=== PATIENT | female | born 1940 | race Caucasian/White ===

== ENCOUNTER → 2016-08-01 | Outpatient (CLI) | payer MEDICARE ==
--- NOTE | 2016-08-01 09:27 | BD ---
EXAMINATION TYPE: MG DEXA axial skeleton. DATE OF EXAM: 08/01/2016 COMPARISON: Previous study dated 02/08/2014. CLINICAL HISTORY: Postmenopausal female Height: 5 FT 1 1/2 IN Weight: 162 FRAX RISK QUESTIONS: Alcohol (3 or more units per day): NO Family History (Parent hip fracture): NO Glucocorticoids (More than 3mos): NO (Ex: prednisone, prednisolone, methylprednisolone, dexamethasone, and hydrocortisone). History of Fracture in Adulthood: YES Secondary Osteoporosis: 1. Type 1 Diabetes: NO 2. Hyperthyroidism: NO 3. Menopause before 45: NO 4. Malnutrition: NO 5. Chronic liver disease: NO Rheumatoid Arthritis: NO Current Tobacco Use: NO RISK FACTORS HISTORY OF: Drink Alcohol: 3 X A YEAR Active: YES Postmenopausal woman: NOT SURE WHEN MENOPAUSE WAS Lost more than 2 inches in height since high school: YES MEDICATIONS: How Long: Additional Medications: VIT D,SIMVASTATIN, LISINOPRIL EXAM MEASUREMENTS: Bone mineral densitometry was performed using the [employer] System. Bone mineral density as measured about the Lumbar spine is: ----- L1-L4(G/cm2): 1.656 T Score Values are as follows: ----- L2: 3.0 ----- L3: 5.4 ----- L4: 5.5 ----- L1-L4: 4.0 Bone mineral density has: Increased 1.3% since study of: 2014 Bone mineral density about the R hip (g/cm2): 0.868 Bone mineral density about the L hip (g/cm2): 0.817 T Score values are as follows: -----R Neck: -0.7 -----L Neck: -0.7 -----R Total: 1.1 -----L Total: 1.4 Bone mineral density has: Decreased 4.0% since study of: 214 IMPRESSION: Normal (Values between +1 and -1 indicate normal bone mass). Consider repeating this study in 5 year s or sooner if there is some new clinical indication. NOTE: T-SCORE=SD OF THE YOUNG ADULT MEAN.
== END | disposition home or self-care (01) ==
LOC: RADBDWWP 07:13
PROVIDERS: ATTEND Internal Medicine Rheumatology
DX: Z13.820 Encounter for screening for osteoporosis (principal)
CPT/HCPCS: 77080

== ENCOUNTER → 2016-09-23 | Outpatient (CLI) | payer MEDICARE ==
--- NOTE | 2016-09-24 12:48 | MM ---
Reason for exam: screening (asymptomatic). Last mammogram was performed 1 year and 1 month ago. History: Patient is postmenopausal and has history of other cancer at age 72. Family history of breast cancer in sister and breast cancer in maternal aunt. Excisional biopsy of the right breast, August 09, 2007. Took estrogen for 11 years 2 months beginning at age 53. Physical Findings: A clinical breast exam by your physician is recommended on an annual basis and results should be correlated with mammographic findings. MG 3D Screening Mammo W/Cad Bilateral CC and MLO view(s) were taken. Prior study comparison: August 29, 2015, bilateral MG 3d screening mammo w/cad. September 06, 2014, right breast MG diagnostic mammo RT w CAD. Calcifications in both breasts, stable. No significant changes when compared with prior studies. ASSESSMENT: Benign, BI-RAD 2 RECOMMENDATION: Routine screening mammogram of both breasts in 1 year.
== END | disposition home or self-care (01) ==
LOC: RADMAMWWP 07:03
PROVIDERS: ATTEND Obstetrics & Gynecology
DX: Z12.31 Encounter for screening mammogram for malignant neoplasm of breast (principal)
CPT/HCPCS: 77063; G0202

== ENCOUNTER → 2017-12-18 | Outpatient (CLI) | payer MEDICARE ==
--- NOTE | 2017-12-22 09:14 | MM ---
Reason for exam: screening (asymptomatic). Last mammogram was performed 1 year and 3 months ago. History: Patient is postmenopausal and has history of other cancer at age 72. Family history of breast cancer in sister and breast cancer in maternal aunt. Excisional biopsy of the right breast, August 09, 2007. Took estrogen for 11 years 2 months beginning at age 53. Physical Findings: A clinical breast exam by your physician is recommended on an annual basis and results should be correlated with mammographic findings. MG 3D Screening Mammo W/Cad Bilateral CC and MLO view(s) were taken. Prior study comparison: September 23, 2016, bilateral MG 3d screening mammo w/cad. August 29, 2015, bilateral MG 3d screening mammo w/cad. The breast tissue is heterogeneously dense. This may lower the sensitivity of mammography. Focal asymmetry posterior upper outer quadrant left breast and 12 o'clock anterior left breast appear more defined/larger. ASSESSMENT: Incomplete: need additional imaging evaluation, BI-RAD 0 RECOMMENDATION: Special view mammogram and ultrasound of the left breast. [facility] will attempt to contact patient to return for supplemental views and ultrasound.
== END | disposition home or self-care (01) ==
LOC: RADMAMWWP 13:51
PROVIDERS: ATTEND Obstetrics & Gynecology
DX: Z12.31 Encounter for screening mammogram for malignant neoplasm of breast (principal)
CPT/HCPCS: 77063; 77067

== ENCOUNTER → 2017-12-30 | Outpatient (CLI) | payer MEDICARE ==
--- NOTE | 2017-12-31 09:25 | MM ---
Reason for exam: additional evaluation requested from abnormal screening. Last mammogram was performed less than 1 month ago. History: Patient is postmenopausal and has history of other cancer at age 72. Family history of breast cancer in sister at age 60 and breast cancer in maternal aunt at age 60. Excisional biopsy of the right breast, August 09, 2007. Took estrogen for 11 years 2 months beginning at age 53. Physical Findings: Nurse Summary: 0.5 x 1cm nodule in the left breast at 2 o'clock (nurse ts). MG 3D Work Up W/Cad LT Spot compression CC, spot compression MLO, and LM view(s) were taken of the left breast. Prior study comparison: December 18, 2017, bilateral MG 3d screening mammo w/cad. September 23, 2016, bilateral MG 3d screening mammo w/cad. The breast tissue is heterogeneously dense. This may lower the sensitivity of mammography. Areas of increased density persist but appear improved. Ultrasound recommended. These results were verbally communicated with the patient and result sheet given to the patient on 12/30/17. ASSESSMENT: Incomplete: need additional imaging evaluation, BI-RAD 0 RECOMMENDATION: Ultrasound of the left breast.
--- NOTE | 2017-12-31 09:26 | USB ---
Reason for exam: additional evaluation requested from abnormal screening. History: Patient is postmenopausal and has history of other cancer at age 72. Family history of breast cancer in sister at age 60 and breast cancer in maternal aunt at age 60. Excisional biopsy of the right breast, August 09, 2007. Took estrogen for 11 years 2 months beginning at age 53. US Breast Workup Limited LT Left limited breast ultrasound including focal area of concern, retroareolar and axilla demonstrates several oval, cystic lesions measuring 3 x 2 x 4mm at 1 o'clock, 8 x 4 x 7mm at 1 o'clock, 3 x 3 x 4mm at 2 o'clock and 6 x 5 x 7mm at 4 o'clock. These results were verbally communicated with the patient and result sheet given to the patient on 12/30/17. ASSESSMENT: Benign, BI-RAD 2 RECOMMENDATION: Return to routine screening mammogram schedule for both breasts.
== END | disposition home or self-care (01) ==
LOC: RADMAMWWP 14:38
PROVIDERS: ATTEND Obstetrics & Gynecology
DX: R92.8 Other abnormal and inconclusive findings on diagnostic imaging of breast (principal)
CPT/HCPCS: 77065; 76642; G0279; 77061

== ENCOUNTER → 2018-09-02 | Outpatient (CLI) | payer SELFPAY | LOC: LABWHC1 11:40 | PROVIDERS: ATTEND Pathology Anatomic Pathology & Clinical Pathology | DX: Z53.9 Procedure and treatment not carried out, unspecified reason (principal) | CPT/HCPCS: 36415 ==

== ENCOUNTER 2018-09-11 07:36 | Day surgery (SDC) | payer MEDICARE ==
[2018-09-10 11:12] VITALS: BMI 30.2
[~2018-09-11 07:36] MED LIST: LACTATED RINGERS 1,000 ML IV SCH; LIDOCAINE 1% 20 ML VIAL (10MG/ML) FOR IV START INTRADERMA PRN
[2018-09-11 07:51] VITALS: TEMP 97.8
[2018-09-11] MEDS ORDERED: LACTATED RINGERS 1,000 ML IV ONE (07:51)
[2018-09-11] MEDS ORDERED: LIDOCAINE 1% INJ 10MG/ML (20 ML MDV) ONE (08:55)
[2018-09-11] MEDS ORDERED: GLYCOPYRROLATE 0.2 MG/ML 2 ML VIAL ONE (08:55)
[2018-09-11] MEDS ORDERED: ONDANSETRON 4 MG/2 ML VIAL ONE (08:55)
[2018-09-11] MEDS ORDERED: PROPOFOL 10 MG/ML 20 ML VIAL IV ONE (08:55)
--- NOTE | 2018-09-11 09:12 | P.PCN ---
Date of Procedure: 09/11/18 Procedure(s) Performed: BRIEF HISTORY: Patient is a 77-year-old pleasant white female, scheduled for an elective colonoscopy as a part of screening for colorectal neoplasia. PROCEDURE PERFORMED: Colonoscopy. PREOPERATIVE DIAGNOSIS: Screening for colon cancer. IV sedation per Anesthesia. PROCEDURE: After informed consent was obtained, the patient, was brought into the endoscopy unit. IV sedation was administered by Anesthesia under continuous monitoring. Digital rectal examination was normal. Initially the Olympus CF-160 flexible video colonoscope was then inserted in the rectum, gradually advanced into the cecum without any difficulty. Careful examination was performed as the scope was gradually being withdrawn. Ileocecal valve and the appendiceal orifice were visualized and appeared normal. Prep was excellent. Mucosa of the cecum, ascending colon, transverse colon, descending colon, sigmoid colon, and rectum appeared normal. Scattered sigmoid diverticulosis seen. Retroflexion was performed in the rectum and no lesions were seen. The patient tolerated the procedure well. IMPRESSION: Normal-appearing colon from rectum to cecum with no evidence of colorectal neoplasia. Scattered sigmoid diverticulosis. RECOMMENDATIONS: Findings of this examination were discussed with the patient as well as a family. She was advised to be on a high-fiber diet..
[2018-09-11 09:30] VITALS: BP 136/67; PULSE 77; RESP 18
== END 2018-09-11 09:54 | disposition home or self-care (01) ==
LOC: ORWHC2ENDO 07:36
PROVIDERS: ATTEND Internal Medicine Gastroenterology
DX: Z12.11 Encounter for screening for malignant neoplasm of colon (principal); K57.30 Diverticulosis of large intestine without perforation or abscess without bleeding; M19.90 Unspecified osteoarthritis, unspecified site; I10 Essential (primary) hypertension; E78.5 Hyperlipidemia, unspecified; Z79.1 Long term (current) use of non-steroidal anti-inflammatories (NSAID); Z79.82 Long term (current) use of aspirin; Z79.899 Other long term (current) drug therapy
CPT/HCPCS: J2405; J2001; J2704; G0121

== ENCOUNTER → 2019-10-12 | Outpatient (CLI) | payer MEDICARE | END | disposition home or self-care (01) | LOC: LABWHC1 14:00 | PROVIDERS: ATTEND Family Medicine | DX: Z20.828 Contact with and (suspected) exposure to other viral communicable diseases (principal) | CPT/HCPCS: U0003; C9803 ==

== ENCOUNTER → 2020-02-13 | Outpatient (CLI) | payer MEDICARE ==
--- NOTE | 2020-02-14 13:42 | MM ---
Reason for exam: screening (asymptomatic). Last mammogram was performed 2 years and 1 month ago. History: Patient is postmenopausal and has history of other cancer at age 72. Family history of breast cancer in sister at age 60 and breast cancer in maternal aunt at age 60. Excisional biopsy of the right breast, August 09, 2007. Took estrogen for 11 years 2 months beginning at age 53. Physical Findings: A clinical breast exam by your physician is recommended on an annual basis and results should be correlated with mammographic findings. MG 3D Screening Mammo W/Cad Bilateral CC and MLO view(s) were taken. Prior study comparison: December 30, 2017, left breast MG 3d work up w/cad LT. December 18, 2017, bilateral MG 3d screening mammo w/cad. The breast tissue is heterogeneously dense. This may lower the sensitivity of mammography. No significant changes when compared with prior studies. ASSESSMENT: Benign, BI-RAD 2 RECOMMENDATION: Routine screening mammogram of both breasts in 1 year.
== END | disposition home or self-care (01) ==
LOC: RADMAMWWP 11:33
PROVIDERS: ATTEND Obstetrics & Gynecology
DX: Z12.31 Encounter for screening mammogram for malignant neoplasm of breast (principal)
CPT/HCPCS: 77063; 77067

== ENCOUNTER → 2020-12-13 | Outpatient (CLI) | payer MEDICARE ==
[2020-12-13 19:57] LABS: Basophils # (A) 0.07 X 10*3/uL (0.00-0.10); Basophils % (A) 1.1 %; Eosinophils # (A) 0.09 X 10*3/uL (0.04-0.35); Eosinophils % (A) 1.4 %; HCT 43.6 % (37.2-46.3); HGB 13.6 g/dL (12.0-15.0); Lymphocytes # (A) 1.75 X 10*3/uL (0.90-5.00); Lymphocytes % (A) 26.6 %; MCH 28.9 pg (27.0-32.0); MCHC 31.2 g/dL (32.0-37.0); MCV 92.8 fL (80.0-97.0); Mean Platelet Volume 12.9 fL (9.5-12.2); Monocytes # (A) 0.58 X 10*3/uL (0.20-1.00); Monocytes % (A) 8.8 %; Neutrophils # (A) 4.07 X 10*3/uL (1.80-7.70); Neutrophils % (A) 61.6 %; Platelet Count 108 X 10*3/uL (140-440); RDW 13.8 % (11.5-14.5); WBC 6.59 X 10*3/uL (4.50-10.00)
[2020-12-13 20:49] LABS: ALT 25 U/L (8-44); AST 26 U/L (13-35); Blood Urea Nitrogen 16.6 mg/dL (9.0-27.0); Non-African American GFR(CKD) 69.9 (60.0-200.0)
[2020-12-13 21:59] LABS: C Reactive Protein <0.30 mg/dL (0.00-0.80)
== END | disposition home or self-care (01) ==
LOC: LABWHC1 12:01
PROVIDERS: ATTEND Internal Medicine Rheumatology
DX: M05.79 Rheumatoid arthritis with rheumatoid factor of multiple sites without organ or systems involvement (principal); M06.4 Inflammatory polyarthropathy
CPT/HCPCS: 36415; 82565; 84450; 84460; 84520; 85025; 86140

== ENCOUNTER → 2021-01-03 | Outpatient (CLI) | payer MEDICARE ==
--- NOTE | 2021-01-04 15:23 | BD ---
EXAMINATION TYPE: Axial Bone Density DATE OF EXAM: 01/03/2021 COMPARISON: NONE CLINICAL HISTORY: age related osteoporosis. Height: 5 FT 1 1/4 IN Weight: 160 FRAX RISK QUESTIONS: Alcohol (3 or more units per day): NO Family History (Parent hip fracture): NO Glucocorticoids (More than 3mos): NO (Ex: prednisone, prednisolone, methylprednisolone, dexamethasone, and hydrocortisone). History of Fracture in Adulthood: YES Secondary Osteoporosis: 1. Type 1 Diabetes: NO 2. Hyperthyroidism: NO 3. Menopause before 45: NO 4. Malnutrition: NO 5. Chronic liver disease: NO Rheumatoid Arthritis: NO Current Tobacco Use: NO RISK FACTORS HISTORY OF: Surgery to Spine/Hip(right/left)/Wrist (right/left): NO Family History of Osteoporosis: NO Active: YES Diet low in dairy products/other sources of calcium: NO Postmenopausal woman: YES Take estrogen and/or progesterone medications: TOOK HRT FOR SEV YEARS AFTER MENOPAUSE NO LONGER TAKES Lost more than 2 inches in height since high school: YES Frequent falls: NO Poor Health: GOOD Hyperparathyroidism: NO Adrenal Insufficiency: NO MEDICATIONS: Additional Medications: SIMVASTATIN, LISINOPRIL Additional History: EXAM MEASUREMENTS: Bone mineral densitometry was performed using the [employer]. Bone mineral density as measured about the Lumbar spine is: ----- L1-L4(G/cm2): 1.507 T Score Values are as follows: ----- L2: 1.6 ----- L3: 2.7 ----- L4: 4.6 ----- L1-L4: 2.7 Bone mineral density has: DECREASED -10.8 % since study of: 2016 Bone mineral density about the R hip (g/cm2): 1.154 Bone mineral density about the L hip (g/cm2): 1.078 T Score values are as follows: -----R Neck: 0.8 -----L Neck: 0.3 -----R Total: 0.7 -----L Total: 0.9 Bone mineral density has: DECREASED -4.9 % since study of: 2017 IMPRESSION: Normal bone mineral density. NOTE: T-SCORE=SD OF THE YOUNG ADULT MEAN.
== END | disposition home or self-care (01) ==
LOC: RADBDWWP 15:34
PROVIDERS: ATTEND Internal Medicine Rheumatology
DX: Z78.0 Asymptomatic menopausal state (principal)
CPT/HCPCS: 77080

== ENCOUNTER → 2021-05-01 | Outpatient (CLI) | payer MEDICARE ==
--- NOTE | 2021-05-02 10:39 | MM ---
Reason for exam: screening (asymptomatic). Last mammogram was performed 1 year and 3 months ago. History: Patient is postmenopausal and has history of other cancer at age 72. Family history of breast cancer in sister at age 60 and breast cancer in maternal aunt at age 60. Excisional biopsy of the right breast, August 09, 2007. Took estrogen for 11 years 2 months beginning at age 53. Physical Findings: A clinical breast exam by your physician is recommended on an annual basis and results should be correlated with mammographic findings. MG 3D Screening Mammo W/Cad Bilateral CC and MLO view(s) were taken. Prior study comparison: February 13, 2020, bilateral MG 3d screening mammo w/cad. December 30, 2017, left breast MG 3d work up w/cad LT. The breast tissue is heterogeneously dense. This may lower the sensitivity of mammography. Finding: There is a 7 mm equal density (isodense), obscured mass in the lower quadrant, central position of the right breast. ASSESSMENT: Incomplete: need additional imaging evaluation, BI-RAD 0 RECOMMENDATION: Special view mammogram of the right breast. If lesion persists on supplemental views, image directed ultrasound is recommended. [facility] will attempt to contact patient to return for supplemental views and ultrasound if indicated.
== END | disposition home or self-care (01) ==
LOC: RADMAMWWP 14:44
PROVIDERS: ATTEND Obstetrics & Gynecology
DX: Z12.31 Encounter for screening mammogram for malignant neoplasm of breast (principal); Z80.3 Family history of malignant neoplasm of breast; Z78.0 Asymptomatic menopausal state
CPT/HCPCS: 77063; 77067

== ENCOUNTER → 2021-05-03 | Outpatient (CLI) | payer MEDICARE ==
--- NOTE | 2021-05-03 11:35 | MM ---
Reason for exam: additional evaluation requested from abnormal screening. Last mammogram was performed less than 1 month ago. History: Patient is postmenopausal and has history of other cancer at age 72. Family history of breast cancer in sister at age 60 and breast cancer in maternal aunt at age 60. Excisional biopsy of the right breast, August 09, 2007. Took estrogen for 11 years 2 months beginning at age 53. Physical Findings: A clinical breast exam by your physician is recommended on an annual basis and results should be correlated with mammographic findings. MG 3D Work Up W/Cad RT Spot compression CC, spot compression MLO, and LM view(s) were taken of the right breast. Prior study comparison: May 01, 2021, bilateral MG 3d screening mammo w/cad. February 13, 2020, bilateral MG 3d screening mammo w/cad. The breast tissue is heterogeneously dense. This may lower the sensitivity of mammography. Nodule persists 6 o'clock right breast 4cm and 6cm from nipple measuring up to 1cm in size. These results were verbally communicated with the patient and result sheet given to the patient on 05/03/21. ASSESSMENT: Incomplete: need additional imaging evaluation, BI-RAD 0 RECOMMENDATION: Ultrasound of the right breast.
--- NOTE | 2021-05-03 11:38 | USB ---
Reason for exam: additional evaluation requested from abnormal screening. History: Patient is postmenopausal and has history of other cancer at age 72. Family history of breast cancer in sister at age 60 and breast cancer in maternal aunt at age 60. Excisional biopsy of the right breast, August 09, 2007. Took estrogen for 11 years 2 months beginning at age 53. US Breast Workup Limited RT Technologist: Gabby Sultana Right limited breast ultrasound including focal area of concern, retroareolar and axilla demonstrates a 0.6 x 0.3 x 0.4cm lesion at 5 o'clock, a 0.7 x 0.5 x 0.5cm mixed lesion at 6 o'clock, a 0.7 x 0.7 x 0.6cm mixed lesion at 7 o'clock for which a biopsy is recommended and a 0.9 x 0.9 x 0.8cm cystic cluster/septated lesion at the nipple. Scanned 4-8 o'clock. These results were verbally communicated with the patient and result sheet given to the patient on 05/03/21. ASSESSMENT: Suspicious, BI-RAD 4 RECOMMENDATION: Ultrasound core biopsy of the right breast. (7 o'clock) Called Dr. Santos's office with mammographic findings and has scheduled an appointment for the patient for 06/27/21 at 11:[address] Ryan. Biopsy scheduled for 05/09/21 at 1:00. PRELIMINARY REPORT CALLED AND FAXED TO DR. RYAN ON 05/03/21.
== END | disposition home or self-care (01) ==
LOC: RADMAMWWP 09:37
PROVIDERS: ATTEND Obstetrics & Gynecology
DX: R92.8 Other abnormal and inconclusive findings on diagnostic imaging of breast (principal); Z78.0 Asymptomatic menopausal state; Z80.3 Family history of malignant neoplasm of breast
CPT/HCPCS: 77065; 76642; G0279; 77061

== ENCOUNTER → 2022-03-24 | Outpatient (CLI) | payer MEDICARE ==
[2022-03-24 15:36] LABS: C Reactive Protein <0.30 mg/dL (0.00-0.80); Rheumatoid Factor, Qnt 20 IU/mL (0-15)
[2022-03-24 16:06] LABS: Basophils # (A) 0.06 X 10*3/uL (0.00-0.10); Basophils % (A) 1.1 %; Eosinophils # (A) 0.13 X 10*3/uL (0.04-0.35); Eosinophils % (A) 2.3 %; HCT 45.5 % (37.2-46.3); HGB 14.6 g/dL (12.0-15.0); Immature Grans, Automated 0.5 %; Lymphocytes # (A) 1.45 X 10*3/uL (0.90-5.00); Lymphocytes % (A) 25.5 %; MCH 29.1 pg (27.0-32.0); MCHC 32.1 g/dL (32.0-37.0); MCV 90.6 fL (80.0-97.0); Monocytes # (A) 0.56 X 10*3/uL (0.20-1.00); Monocytes % (A) 9.9 %; NRBC Per 100 WBC 0 /100 WBCS (0.0-0.0); Neutrophils # (A) 3.45 X 10*3/uL (1.80-7.70); Neutrophils % (A) 60.7 %; Platelet Count 96 X 10*3/uL (140-440); RBC 5.02 X 10*6/uL (4.10-5.20); RBC Morphology NORMAL; RDW 13.6 % (11.5-14.5); WBC 5.68 X 10*3/uL (4.50-10.00)
[2022-03-24 16:12] LABS: Erythrocyte Sedimentation Rate 20 mm/Hr (0-30)
[2022-03-24 16:44] LABS: ALT 36 U/L (8-44); AST 29 U/L (13-35); Blood Urea Nitrogen 16.7 mg/dL (9.0-27.0); Calcium 9.5 mg/dL (8.7-10.3); Non-African American GFR(CKD) 66.4 (60.0-200.0)
== END | disposition home or self-care (01) ==
LOC: LABWHC1 10:40
PROVIDERS: ATTEND Internal Medicine Rheumatology
DX: M81.0 Age-related osteoporosis without current pathological fracture (principal); E55.9 Vitamin D deficiency, unspecified; M06.4 Inflammatory polyarthropathy; Z79.01 Long term (current) use of anticoagulants
CPT/HCPCS: 36415; 82310; 82565; 83036; 84450; 84460; 84520; 85025; 85652; 86140; 86431

== ENCOUNTER → 2022-10-02 | Outpatient (CLI) | payer MEDICARE ==
[2022-10-02 17:08] LABS: ALT 32 U/L (8-44); AST 29 U/L (13-35); Blood Urea Nitrogen 15.8 mg/dL (9.0-27.0); C Reactive Protein <0.30 mg/dL (0.00-0.80)
[2022-10-02 17:27] LABS: Basophils # (A) 0.07 X 10*3/uL (0.00-0.10); Basophils % (A) 1.1 %; Eosinophils # (A) 0.16 X 10*3/uL (0.04-0.35); Eosinophils % (A) 2.5 %; HCT 45.7 % (37.2-46.3); HGB 14.9 d/dL (12.0-15.0); Lymphocytes % (A) 24.6 %; MCH 29.8 pg (27.0-32.0); MCHC 32.6 d/dL (32.0-37.0); MCV 91.4 FL (80.0-97.0); Mean Platelet Volume 13.4 FL (9.5-12.2); Monocytes % (A) 9.2 %; NRBC Per 100 WBC 0 X 10*3/uL (0.00-0.01); Neutrophils # (A) 4.06 X 10*3/uL (1.80-7.70); Neutrophils % (A) 62.3 %; Platelet Count 125 X 10*3/uL (140-440); RBC Morphology Normal (Normal); RDW 13.8 % (11.5-14.5); WBC 6.51 X 10*3/uL (4.50-10.00)
[2022-10-02 17:31] LABS: Erythrocyte Sedimentation Rate 25 mm/Hr (0-30)
== END | disposition home or self-care (01) ==
LOC: LABWHC1 08:18
PROVIDERS: ATTEND Internal Medicine Rheumatology
DX: M06.4 Inflammatory polyarthropathy (principal); M25.50 Pain in unspecified joint; Z79.01 Long term (current) use of anticoagulants
CPT/HCPCS: 36415; 82565; 84450; 84460; 84520; 85025; 85652; 86140

== ENCOUNTER → 2023-05-14 | Outpatient (CLI) | payer MEDICARE ==
--- NOTE | 2023-05-15 13:45 | MM ---
Reason for Exam: Screening (asymptomatic). Last screening mammogram was performed 12 month(s) ago. Patient History: Menarche at age 15. First Full-Term at age 30. Left ovary removed at age 76. Right ovary removed at age 76. Hysterectomy at age 76. Postmenopausal. Patient has history of breast feeding. Estrogen for 11 years, 2 months, from age 53 until age 64. 07/08/2021, High risk MG pre op needle loc RT on the right side. 08/09/2007, Excisional Biopsy on the Right side. 05/09/2021, High risk Core Biopsy on the right side. Maternal aunt had breast cancer, age 60. Sister had breast cancer, age 60. Mother had breast cancer at or over age 50. Risk Values: Munira 5 year model risk: 7.6%. NCI Lifetime model risk: 10.7%. Prior Study Comparison: 09/23/2016 Bilateral Screening Mammogram, [facility]. 12/18/2017 Bilateral Screening Mammogram, [facility]. 12/30/2017 Left Diagnostic Mammogram, [facility]. 02/13/2020 Bilateral Screening Mammogram, [facility]. 05/01/2021 Bilateral Screening Mammogram, [facility]. 05/03/2021 Right Diagnostic Mammogram, [facility]. 05/09/2021 Right Diagnostic Mammogram, [facility]. 04/30/2022 Bilateral MG 3D diag mammo w/cad [facility], [facility]. Tissue Density: The breasts are heterogeneously dense, which may obscure small masses. Findings: Analyzed By CAD. Right breast: There is no suspicious group of microcalcifications or new suspicious mass. Left breast: There is no suspicious group of microcalcifications or new suspicious mass. There is no suspicious group of microcalcifications or new suspicious mass. Overall Assessment: Negative, BI-RAD 1 Management: Screening Mammogram of both breasts in [address] [facility] will attempt to contact patient to return for supplemental views and ultrasound if indicated. Patient should continue monthly self-breast exams. A clinical breast exam by your physician is recommended on an annual basis. This exam should not preclude additional follow-up of suspicious palpable abnormalities. Note on Munira scores and lifetime risk: 1. A Munira score greater than 3% is considered moderate risk. If this is the case, consider specialist referral to assess eligibility for a risk reducing agent. 2. If overall lifetime risk for the development of breast cancer is 20% or higher, the patient may qualify for future screening with alternating mammogram and breast MRI. Electronically signed and approved by: Chucho Sharma DO
== END | disposition home or self-care (01) ==
LOC: RADMAMWWP 07:28
PROVIDERS: ATTEND Obstetrics & Gynecology
DX: Z12.31 Encounter for screening mammogram for malignant neoplasm of breast (principal); Z80.3 Family history of malignant neoplasm of breast; Z78.0 Asymptomatic menopausal state
CPT/HCPCS: 77063; 77067

== ENCOUNTER → 2023-09-08 | Outpatient (CLI) | payer MEDICARE ==
--- NOTE | 2023-09-08 22:02 | XR ---
EXAMINATION TYPE: XR Hip Complete RT DATE OF EXAM: 09/08/2023 COMPARISON: None HISTORY: Primary osteoarthritis TECHNIQUE: Two-view right hip FINDINGS: Femoral head articulates with the acetabulum. Joint space appears preserved. No acute fract ure or dislocation evident. IMPRESSION: 1. No acute osseous abnormality right hip
== END | disposition home or self-care (01) ==
LOC: RADXRMAIN 09:11
PROVIDERS: ATTEND Family Medicine
DX: M19.91 Primary osteoarthritis, unspecified site (principal)
CPT/HCPCS: 73502

== ENCOUNTER 2023-11-28 20:21 | Inpatient (IN) | payer MEDICARE ==
--- NOTE | 2023-11-28 20:45 | ED ---
Fall HPI - General Source: patient, EMS, RN notes reviewed Mode of arrival: EMS Limitations: no limitations <Katheryn Park - Last Filed: 11/28/23 23:05> <Katy Strong - Last Filed: 11/30/23 02:51> - General Chief Complaint: Fall Stated Complaint: N/V Time Seen by Provider: 11/28/23 20:43 - History of Present Illness Initial Comments: 82-year-old female presented to ER via EMS with a chief complaint of a fall. Patient states since she has been feeling weak. She is while attempting to get out of bed today she accidentally slipped off the edge of the bed causing her to fall. She denies any head injury or loss of consciousness. She denies any dizziness, lightheadedness, shortness of breath or chest pain prior to fall. No blood thinning medications. She denies any current pain. Patient is reported to have a fever upon arrival. Patient denies any recent headache, cough, congestion, chest pain, shortness of breath, abdominal pain, constipation/diarrhea, urinary complaints or peripheral edema. (Katheryn Park) - Related Data Home Medications Medication Instructions Recorded Confirmed Simvastatin [Zocor] 20 mg PO HS 11/29/23 11/29/23 lisinopriL [Zestril] 10 mg PO DAILY 11/29/23 11/29/23 Allergies Allergy/AdvReac Type Severity Reaction Status Date / Time No Known Allergies Allergy Verified 11/29/23 09:37 Review of Systems ROS Other: All systems not noted in ROS Statement are negative. <Katheryn Park - Last Filed: 11/28/23 23:05> ROS Other: All systems not noted in ROS Statement are negative. <Katy Strong - Last Filed: 11/30/23 02:51> ROS Statement: Those systems with pertinent positive or pertinent negative responses have been documented in the HPI. Past Medical History Past Medical History: Hyperlipidemia, Hypertension, Osteoarthritis (OA) History of Any Multi-Drug Resistant Organisms: None Reported Past Surgical History: Breast Surgery Additional Past Surgical History / Comment(s): GROWTH REMOVED- skin lesions. Benign right breast excisional biopsy Past Anesthesia/Blood Transfusion Reactions: No Reported Reaction Past Psychological History: No Psychological Hx Reported Smoking Status: Never smoker Past Alcohol Use History: Rare Past Drug Use History: None Reported <Katheryn Park - Last Filed: 11/28/23 23:05> General Exam Limitations: no limitations General appearance: alert, in no apparent distress ENT exam: Present: normal exam, normal oropharynx, mucous membranes dry, TM's normal bilaterally Neck exam: Present: normal inspection. Absent: tenderness, meningismus, lymphadenopathy Respiratory exam: Present: normal lung sounds bilaterally. Absent: respiratory distress, wheezes, rales, rhonchi, stridor Cardiovascular Exam: Present: normal rhythm, tachycardia, normal heart sounds GI/Abdominal exam: Present: soft, normal bowel sounds. Absent: distended, tenderness, guarding, rebound, rigid Extremities exam: Present: normal inspection, full ROM, normal capillary refill. Absent: tenderness, pedal edema, joint swelling, calf tenderness Neurological exam: Present: alert, oriented X3, CN II-XII intact Skin exam: Present: warm, dry, intact, normal color. Absent: rash <Katheryn Park - Last Filed: 11/28/23 23:05> Course <Katheryn Park - Last Filed: 11/28/23 23:05> <Katy Strong - Last Filed: 11/30/23 02:51> Vital Signs 11/28/23 11/28/23 11/28/23 20:24 21:19 21:50 Temperature 102.8 F H 100.6 F H 101.1 F H Pulse Rate 107 H 99 Respiratory 20 20 Rate Blood Pressure 164/76 132/61 O2 Sat by Pulse 93 L 93 L Oximetry 11/28/23 11/28/23 11/28/23 22:47 23:16 23:41 Temperature 99.2 F 98.4 F 98.8 F Pulse Rate 135 H 135 H Respiratory 20 20 Rate Blood Pressure 91/65 94/46 O2 Sat by Pulse 94 L 94 L Oximetry 11/29/23 11/29/23 11/29/23 00:49 01:25 01:48 Temperature 98.4 F 97.7 F Pulse Rate 109 H 129 H 112 H Respiratory 20 20 16 Rate Blood Pressure 106/63 100/62 117/76 O2 Sat by Pulse 96 96 96 Oximetry 11/29/23 11/29/23 11/29/23 02:19 03:20 04:45 Temperature 97.4 F L Pulse Rate 98 84 71 Respiratory 20 18 19 Rate Blood Pressure 100/61 138/82 110/66 O2 Sat by Pulse 92 L 98 97 Oximetry 11/29/23 11/29/23 11/29/23 06:03 09:16 10:16 Temperature 98.1 F 97.7 F Pulse Rate 70 80 78 Respiratory 19 18 16 Rate Blood Pressure 110/67 119/67 127/64 O2 Sat by Pulse 97 95 96 Oximetry 11/29/23 11:12 Temperature 98.0 F Pulse Rate 75 Respiratory 16 Rate Blood Pressure 131/71 O2 Sat by Pulse 95 Oximetry - Reevaluation(s) Reevaluation #1: 11/28/23 20:45 SIRS critera met. 11/28/23 22:07 Patient reevaluated. Heart rate ranging from 120s to 140s. Patient is reporting a racing heart. Denies any current pain. Blood pressure 99/53. O2 saturation 93% on 3L NC oxygen. 11/28/23 22:42 Rocephin ordered. 11/28/23 22:[address] Driver, [facility], for admission. (Katheryn Park) Reevaluation #2: Spoke with the patient. I did review her CT. Patient does have a ureteral stone. Due to fever, hypotension, UTI with partially obstructing stone I did call and speak with Dr. Jaime. Will be made NPO. Blood pressures will be watched closely. Patient awaiting a bed on the floor. Patient is in A-fib however rate is mostly between 95 and 115. Patient has sepsis and therefore I do not want to decrease her cardiac output. Patient is also scheduled for stent placement tomorrow and therefore I will hold off heparinizing the patient 11/29/23 01:03 (Katy Strong) Medical Decision Making - Lab Data Result diagrams: 11/28/23 21:14 11/28/23 20:43 - EKG Data -: EKG Interpreted by Me - Radiology Data Radiology results: report reviewed, image reviewed <Katheryn Park - Last Filed: 11/28/23 23:05> - Lab Data Result diagrams: 11/28/23 21:14 11/28/23 20:43 <Katy Strong - Last Filed: 11/30/23 02:51> - Medical Decision Making Was pt. sent in by a medical professional or institution (, [facility], [employer], urgent care, hospital, or shelter...) When possible be specific @ -No Did you speak to anyone other than the patient for history (EMS, parent, family, police, friend...)? What history was obtained from this source @ -, at bedside, aiding in HPI and PMHx. Did you review nursing and triage notes (agree or disagree)? Why? @ -I reviewed and agree with nursing and triage notes Were old charts reviewed (outside hosp., previous admission, EMS record, old EKG, old radiological studies, urgent care reports/EKG's, shelter records)? Report findings @ -No old charts were reviewed Differential Diagnosis (chest pain, altered mental status, abdominal pain women, abdominal pain men, vaginal bleeding, weakness, fever, dyspnea, syncope, headache, dizziness, GI bleed, back pain, seizure, CVA, palpatations, mental health, musculoskeletal)? @ -Differential Fever: Pneumonia, viral URI, endocarditis, myocarditis, pericarditis, otitis, sinusitis, peritonsillar Abscess, retropharyngeal Abscess, epiglottitis, peritonitis, appendicitis, Christel cystitis, diverticulitis, hepatitis, colitis, UTI, PID, TOA, pyelonephritis, prostatitis, epididymitis, meningitis, encephalitis, pulmonary embolism, CVA, thyroid storm, pancreatitis, adrenal crisis, cavernous sinus thrombosis, this is not meant to be an all- inclusive list. EKG interpreted by me (3pts min.). @ -As above X-rays interpreted by me (1pt min.). @ -Chest x-ray negative for acute process. CT interpreted by me (1pt min.). @ -Pending U/S interpreted by me (1pt. min.). @ -Gallbladder ultrasound unremarkable. What testing was considered but not performed or refused? (CT, X-rays, U/S, labs)? Why? @ -None What meds were considered but not given or refused? Why? @ -None Did you discuss the management of the patient with other professionals (professionals i.e. [facility]STINE Hull, [employer], lab, RT, psych nurse, social media senior associate, human services care specialist, teacher, hospital security officer, lead case manager)? Give summary @ -Yes, [facility]. Was smoking cessation discussed for >3mins.? @ -No Was critical care preformed (if so, how long)? @ -No Were there social determinants of health that impacted care today? How? (Homelessness, low income, unemployed, alcoholism, drug addiction, transportation, low edu. Level, literacy, decrease access to med. care, fdc, rehab)? @ -No Was there de-escalation of care discussed even if they declined (Discuss DNR or withdrawal of care, Hospice)? DNR status @ -No What co-morbidities impacted this encounter? (DM, HTN, Smoking, COPD, CAD, Cancer, CVA, ARF, Chemo, Hep., AIDS, mental health diagnosis, sleep apnea, morbid obesity)? @ -HTN, HLD Was patient admitted / discharged? Hospital course, mention meds given and route, prescriptions, significant lab abnormalities, going to OR and other pertinent info. @ -Admitted. 82-year-old female presented to the ER with a chief complaint of weakness and fall. Patient is febrile upon arrival with a temperature of 102.8, heart rate 107, respirate 20, blood pressure 164/76, oxygen saturation 93% on room air. Patient is mildly diaphoretic on exam no signs of acute distress. Patient denying any current pain or complaints. Laboratory studies obtained remarkable for a WBC 7.5, lactic 2.0. Prerenal azotemia (BUN 24, creatinine 0.89 with a GFR 61). Transaminitis with a total bilirubin 1.9, AST 59, ALT 47, alk phos 54. Viral swabs negative. Chest x-ray negative for acute process. Gallbladder ultrasound negative. CT abdomen pelvis pending. UA pending. Patient met sepsis criteria at 2044. IV Rocephin ordered at 2241. Blood cultures obtained. Patient intermittently went into atrial fibrillation with RVR which is likely related to compensation due to sepsis. Patient received 2L IV fluids in the ER started on maintenance fluids at 130cc/hour. P.O. Tylenol and IV Toradol for fever control, with improvement. [facility] treatment of sepsis. Patient agreeable. UA and CT pending at time of admission. Patient admitted in stable condition. Case discussed with ED attending, Dr. Strong. Undiagnosed new problem with uncertain prognosis? @ -Yes Drug Therapy requiring intensive monitoring for toxicity (Heparin, Nitro, Ins ulin, Cardizem)? @ -No Were any procedures done? @ -No Diagnosis/symptom? @ -Sepsis Acute, or Chronic, or Acute on Chronic? @ -Acute Uncomplicated (without systemic symptoms) or Complicated (systemic symptoms)? @ -Complicated Side effects of treatment? @ -No Exacerbation, Progression, or Severe Exacerbation? @ -No Poses a threat to life or bodily function? How? (Chest pain, USA, ID, pneumonia, PE, COPD, DKA, ARF, appy, cholecystitis, CVA, Diverticulitis, Homicidal, Suicidal, threat to staff... and all critical care pts) @ -Yes, sepsis can lead to end organ dysfunction which can be life threatening. (Katheryn Park) Critical care time of 35 minutes for management of rapid A-fib, septic stone with consultation to urology and cardiology (Katy Strong) - Lab Data Lab Results 11/28/23 11/28/23 11/28/23 Range/Units 20:43 20:43 21:14 WBC 7.5 (3.8-10.6) k/uL RBC 4.68 (3.80-5.40) m/uL Hgb 13.9 (11.4-16.0) gm/dL Hct 42.2 (34.0-46.0) % MCV 90.3 (80.0-100.0) fL MCH 29.6 (25.0-35.0) pg MCHC 32.8 (31.0-37.0) g/dL RDW 13.8 (11.5-15.5) % Plt Count 75 L (150-450) k/uL MPV 8.2 Neutrophils % 91 % Lymphocytes % 3 % Monocytes % 4 % Eosinophils % 0 % Basophils % 0 % Neutrophils # 6.8 (1.3-7.7) k/uL Lymphocytes # 0.2 L (1.0-4.8) k/uL Monocytes # 0.3 (0-1.0) k/uL Eosinophils # 0.0 (0-0.7) k/uL Basophils # 0.0 (0-0.2) k/uL Sodium 138 (137-145) mmol/L Potassium 4.0 (3.5-5.1) mmol/L Chloride 108 H (98-107) mmol/L Carbon Dioxide 19 L (22-30) mmol/L Anion Gap 11 mmol/L BUN 24 H (7-17) mg/dL Creatinine 0.89 (0.52-1.04) mg/dL Est GFR (CKD-EPI)AfAm 70 (>60 ml/min/1.73 sqM) Est GFR (CKD-EPI)NonAf 61 (>60 ml/min/1.73 sqM) Glucose 159 H (74-99) mg/dL Plasma Lactic Acid Vito 2.0 (0.7-2.0) mmol/L Calcium 8.8 (8.4-10.2) mg/dL Total Bilirubin 1.9 H (0.2-1.3) mg/dL AST 59 H (14-36) U/L ALT 47 H (4-34) U/L Alkaline Phosphatase 54 (38-126) U/L Total Protein 6.2 L (6.3-8.2) g/dL Albumin 3.6 (3.5-5.0) g/dL Urine Color Urine Appearance (Clear) Urine pH (5.0-8.0) Ur Specific Mercer (1.001-1.035) Urine Protein (Negative) Urine Glucose (UA) (Negative) Urine Ketones (Negative) Urine Blood (Negative) Urine Nitrite (Negative) Urine Bilirubin (Negative) Urine Urobilinogen (<2.0) mg/dL Ur Leukocyte Esterase (Negative) Urine RBC (0-5) /hpf Urine WBC (0-5) /hpf Ur Squamous Epith Cells (0-4) /hpf Urine Bacteria (None) /hpf Influenza Type A (PCR) (Not Detectd) Influenza Type B (PCR) (Not Detectd) RSV (PCR) (Not Detectd) SARS-CoV-2 (PCR) (Not Detectd) 11/28/23 11/28/23 Range/Units 21:23 23:00 WBC (3.8-10.6) k/uL RBC (3.80-5.40) m/uL Hgb (11.4-16.0) gm/dL Hct (34.0-46.0) % MCV (80.0-100.0) fL MCH (25.0-35.0) pg MCHC (31.0-37.0) g/dL RDW (11.5-15.5) % Plt Count (150-450) k/uL MPV Neutrophils % % Lymphocytes % % Monocytes % % Eosinophils % % Basophils % % Neutrophils # (1.3-7.7) k/uL Lymphocytes # (1.0-4.8) k/uL Monocytes # (0-1.0) k/uL Eosinophils # (0-0.7) k/uL Basophils # (0-0.2) k/uL Sodium (137-145) mmol/L Potassium (3.5-5.1) mmol/L Chloride (98-107) mmol/L Carbon Dioxide (22-30) mmol/L Anion Gap mmol/L BUN (7-17) mg/dL Creatinine (0.52-1.04) mg/dL Est GFR (CKD-EPI)AfAm (>60 ml/min/1.73 sqM) Est GFR (CKD-EPI)NonAf (>60 ml/min/1.73 sqM) Glucose (74-99) mg/dL Plasma Lactic Acid Vito (0.7-2.0) mmol/L Calcium (8.4-10.2) mg/dL Total Bilirubin (0.2-1.3) mg/dL AST (14-36) U/L ALT (4-34) U/L Alkaline Phosphatase (38-126) U/L Total Protein (6.3-8.2) g/dL Albumin (3.5-5.0) g/dL Urine Color Yellow Urine Appearance Cloudy H (Clear) Urine pH 6.0 (5.0-8.0) Ur Specific Mercer 1.023 (1.001-1.035) Urine Protein 1+ H (Negative) Urine Glucose (UA) Negative (Negative) Urine Ketones 1+ H (Negative) Urine Blood Large H (Negative) Urine Nitrite Negative (Negative) Urine Bilirubin Negative (Negative) Urine Urobilinogen <2.0 (<2.0) mg/dL Ur Leukocyte Esterase Large H (Negative) Urine RBC 10 H (0-5) /hpf Urine WBC 92 H (0-5) /hpf Ur Squamous Epith Cells <1 (0-4) /hpf Urine Bacteria Many H (None) /hpf Influenza Type A (PCR) Not Detected (Not Detectd) Influenza Type B (PCR) Not Detected (Not Detectd) RSV (PCR) Not Detected (Not Detectd) SARS-CoV-2 (PCR) Not Detected (Not Detectd) - EKG Data EKG Comments: EKG taken at 20: 32 showing a sinus tachycardia. No acute ST segment elevations or depressions. No T wave abnormalities. Ventricular rate 105, VT interval 159, QRS duration 90, QT/QTc 322/383. EKG taken at 2233 showing atrial fibrillation with rapid ventricular response. Ventricular rate 131, QRS duration 101, QT/QTc 283/360. (Katheryn Park) Disposition Time of Disposition: 23:09 <Katheryn Park - Last Filed: 11/28/23 23:05> Is patient prescribed a controlled substance at d/c from ED?: No <Katy Strong - Last Filed: 11/30/23 02:51> Clinical Impression: Sepsis, UTI (urinary tract infection), Ureteral stone, Fever Disposition: ADMITTED IP TO THIS HOSP Condition: Stable
[2023-11-28 20:51] LABS: Basophils % (A) 0 %; Eosinophils % (A) 0 %; HCT 42.2 % (34.0-46.0); HGB 13.9 gm/dL (11.4-16.0); Lymphocytes # (A) 0.2 k/uL (1.0-4.8); Lymphocytes % (A) 3 %; MCH 29.6 pg (25.0-35.0); MCHC 32.8 g/dL (31.0-37.0); MCV 90.3 fL (80.0-100.0); Mean Platelet Volume 8.2; Monocytes # (A) 0.3 k/uL (0-1.0); Monocytes % (A) 4 %; Neutrophils # (A) 6.8 k/uL (1.3-7.7); Neutrophils % (A) 91 %; RBC 4.68 m/uL (3.80-5.40); RDW 13.8 % (11.5-15.5); WBC 7.5 k/uL (3.8-10.6)
[2023-11-28] MEDS: ACETAMINOPHEN TAB 500 MG TAB PO STA (20:51)
[2023-11-28] MEDS: IBUPROFEN 600 MG TAB PO STA (20:51)
[2023-11-28] MEDS: SODIUM CHLORIDE 0.9% 1,000 ML IV STA (20:52)
[2023-11-28 21:01] LABS: ALT 47 U/L (4-34); AST 59 U/L (14-36); African American GFR (CKD) 70 (>60 ml/min/1.73 sqM); Albumin 3.6 g/dL (3.5-5.0); Alkaline Phosphatase 54 U/L (38-126); Anion Gap 11 mmol/L; Blood Urea Nitrogen 24 mg/dL (7-17); Calcium 8.8 mg/dL (8.4-10.2); Carbon Dioxide 19 mmol/L (22-30); Chloride 108 mmol/L (98-107); Glucose 159 mg/dL (74-99); Non-African American GFR(CKD) 61 (>60 ml/min/1.73 sqM); Sodium 138 mmol/L (137-145); Total Bilirubin 1.9 mg/dL (0.2-1.3); Total Protein 6.2 g/dL (6.3-8.2)
--- NOTE | 2023-11-28 21:21 | XR ---
EXAMINATION TYPE: XR chest 2V DATE OF EXAM: 11/28/2023 COMPARISON: None INDICATION: Fever, fall TECHNIQUE: Frontal and lateral views of the chest are obtained. FINDINGS: The heart size is normal. The pulmonary vasculature is normal. The lungs are clear. No pneumothorax evident. No displaced rib fractures identified. IMPRESSION: 1. No acute pulmonary process. [facility], Workstation: [facility], 11/28/2023 9:19 PM
[2023-11-28 21:27] LABS: Platelet Count 75 k/uL (150-450)
[2023-11-28] MEDS: KETOROLAC 15 MG/ML 1 ML VIAL IVP STA (21:51)
--- NOTE | 2023-11-28 22:00 | US ---
EXAMINATION TYPE: US gallbladder DATE OF EXAM: 11/28/2023 COMPARISON: NONE CLINICAL INDICATION: Female, 82 years old with history of transaminitis; LFTs TECHNIQUE: Grayscale and color Doppler imaging of the right upper quadrant was performed. FINDINGS: EXAM MEASUREMENTS: Liver Length: 16.4 cm Gallbladder Wall: 0.3 cm CBD: 0.4 cm Right Kidney: 11.5x3.6x4.8 cm EMISSION SPECIALIST NOTES: Pancreas: Tail obscured by overlying bowel gas Liver: Mildly increased attenuation and echogenicity Gallbladder: wnl, wall at upper limits Evidence for sonographic Aviles's sign: No CBD: wnl Right Kidney: mild hydro exam limited by bowel and body habitus IMPRESSION: 1. Unremarkable abdomen ultrasound. [facility], Workstation: [facility], 11/28/2023 9:58 PM
[2023-11-28] MEDS: SODIUM CHLORIDE 0.9% 500 ML 500 ML IV STA ×2 (22:35→23:02)
[2023-11-28] MEDS: cefTRIAXone IN SWFI 1,000 MG/10 ML SYRINGE IVP STA (22:47)
[2023-11-28] MEDS ORDERED: NALOXONE 0.4 MG/ML 1 ML VIAL IV PRN (23:02)
[2023-11-28] MEDS: SODIUM CHLORIDE 0.9% 1,000 ML IV SCH (23:14)
[2023-11-28 23:20] LABS: Appearance,Urine Cloudy (Clear); Bacteria,Urine Many /hpf; Bilirubin,Urine Negative (Negative); Blood,Urine Large (Negative); Color,Urine Yellow; Glucose,Urine (UA) Negative (Negative); Ketones,Urine 1+ (Negative); Leukocyte Esterase,Urine Large (Negative); Nitrite,Urine Negative (Negative); Protein,Urine 1+ (Negative); RBC,Urine 10 /hpf (0-5); Specific Gravity,Urine 1.023 (1.001-1.035); Squamous Epithelial Cell,Urine <1 /hpf (0-4); Urobilinogen,Urine <2.0 mg/dL (<2.0); WBC,Urine 92 /hpf (0-5)
[2023-11-28] MEDS: SODIUM CHLORIDE 0.9% 500 ML 500 ML IV ONE (23:50)
--- NOTE | 2023-11-29 00:35 | CT ---
EXAM: CT Abdomen and Pelvis With Intravenous Contrast CLINICAL HISTORY: ITS.REASON CT Reason: fever/transaminitis TECHNIQUE: Axial computed tomography images of the abdomen and pelvis with intravenous contrast. CTDI is 21.4 mGy and DLP is 1040.1 mGy-cm. This CT exam was performed using one or more of the following dose reduction techniques: automated exposure control, adjustment of the mA and/or kV according to patient size, and/or use of iterative reconstruction technique. COMPARISON: No relevant prior studies available. FINDINGS: Lung bases: Unremarkable. No mass. No consolidation. ABDOMEN: Liver: Hepatic steatosis. Gallbladder and bile ducts: Unremarkable. No calcified stones. No ductal dilation. Pancreas: Unremarkable. No mass. No ductal dilation. Spleen: Unremarkable. No splenomegaly. Adrenals: Unremarkable. No mass. Kidneys and ureters: Partially obstructing 3 mm RIGHT proximal ureter stone. No hydronephrosis. Stomach and bowel: Diverticulosis, without acute diverticulitis. No small bowel obstruction. No free intraperitoneal air. PELVIS: Appendix: No findings to suggest acute appendicitis. Bladder: Unremarkable. No mass. Reproductive: Hysterectomy. ABDOMEN and PELVIS: Intraperitoneal space: Unremarkable. No free air. No significant fluid collection. Bones/joints: Degenerative changes of the spine. No acute fracture. No dislocation. Soft tissues: Unremarkable. Vasculature: Atherosclerotic changes of the aorta. No abdominal aortic aneurysm. Lymph nodes: Unremarkable. No enlarged lymph nodes. IMPRESSION: 1. Partially obstructing 3 mm RIGHT proximal ureter stone. No hydronephrosis. 2. Hepatic steatosis. 3. Hysterectomy. 4. Diverticulosis, without acute diverticulitis. No small bowel obstruction. No free intraperitoneal air.
--- NOTE | 2023-11-29 09:29 | P.GSCN ---
History of Present Illness Consult date: 11/29/23 History of present illness: 82-year-old female who came to the emergency room because of weakness and a fall out of bed. She was evaluated and found to have a temperature of 102. She had infected looking urine. A CT scan of the abdomen was performed identifying a 4 mm right proximal ureteral stone with obstruction. For this reason we were asked to see the patient. She has been given IV fluids and antibiotics. She is in atrial fibrillation which is new onset. She has not had previous stones. She does admit to some right lower quadrant pain. The fever came the day of admission. Review of Systems All systems: negative - Constitutional Denies fever, Denies weight loss - EENT Eyes: denies blurred vision Ears, nose, mouth and throat: Denies dysphagia - Cardiovascular Denies chest pain, Denies shortness of breath - Respiratory Denies cough, Denies 7 - Gastrointestinal Reports as per HPI - Genitourinary Genitourinary: Denies dysuria, Denies hematuria - Integumentary Denies rash, Denies unusual bruising - Neurological Denies headaches, Denies syncope - Hematologic/Lymphatic Denies easy bleeding, Denies easy bruising Past Medical History Past Medical History: Hyperlipidemia, Hypertension, Osteoarthritis (OA) History of Any Multi-Drug Resistant Organisms: None Reported Past Surgical History: Breast Surgery Additional Past Surgical History / Comment(s): GROWTH REMOVED- skin lesions. Benign right breast excisional biopsy Past Anesthesia/Blood Transfusion Reactions: No Reported Reaction Past Psychological History: No Psychological Hx Reported Smoking Status: Never smoker Past Alcohol Use History: Rare Past Drug Use History: None Reported Medications and Allergies Home Medications Medication Instructions Recorded Confirmed Type Ascorbic Acid [Vitamin C] 500 mg PO DAILY 09/10/18 07/08/21 History Cholecalciferol (Vitamin D3) 1,000 - 2,000 unit PO DAILY 09/10/18 07/08/21 History [Vitamin D3] Krill Oil 500 mg PO DAILY 09/10/18 07/08/21 History Simvastatin 20 mg PO HS 09/10/18 07/08/21 History Ubidecarenone [Co Q-10] 200 mg PO DAILY 09/10/18 07/08/21 History lisinopriL [Zestril] 5 mg PO QAM 09/10/18 07/08/21 History Turmeric Root Extract [Turmeric] 500 mg PO DAILY 05/03/21 07/08/21 History Allergies Allergy/AdvReac Type Severity Reaction Status Date / Time No Known Allergies Allergy Verified 11/28/23 20:33 Surgical - Exam Vital Signs Temp Pulse Resp BP Pulse Ox 102.8 F H 107 H 20 164/76 93 L 11/28/23 20:24 11/28/23 20:24 11/28/23 20:24 11/28/23 20:24 11/28/23 20:24 - General Mild distress, sweaty consistent with sepsis - Eyes PERRL - ENT no hearing loss - Respiratory normal expansion, normal respiratory effort - Cardiovascular Rhythm: irregularly irregular - Abdomen Right lower quadrant Abdomen: tender - Neurologic normal sensation - Musculoskeletal normal posture - Psychiatric oriented to time, oriented to person, oriented to place, speech is normal, memory intact Results - Labs 11/28/23 21:14 11/28/23 20:43 Abnormal Lab Results - Last 24 Hours (Table) 11/28/23 11/28/23 11/28/23 Range/Units 20:43 21:14 23:00 Plt Count 75 L (150-450) k/uL Lymphocytes # 0.2 L (1.0-4.8) k/uL Chloride 108 H (98-107) mmol/L Carbon Dioxide 19 L (22-30) mmol/L BUN 24 H (7-17) mg/dL Glucose 159 H (74-99) mg/dL Total Bilirubin 1.9 H (0.2-1.3) mg/dL AST 59 H (14-36) U/L ALT 47 H (4-34) U/L Total Protein 6.2 L (6.3-8.2) g/dL Urine Appearance Cloudy H (Clear) Urine Protein 1+ H (Negative) Urine Ketones 1+ H (Negative) Urine Blood Large H (Negative) Ur Leukocyte Esterase Large H (Negative) Urine RBC 10 H (0-5) /hpf Urine WBC 92 H (0-5) /hpf Urine Bacteria Many H (None) /hpf Diabetes panel 11/28/23 Range/Units 20:43 Sodium 138 (137-145) mmol/L Potassium 4.0 (3.5-5.1) mmol/L Chloride 108 H (98-107) mmol/L Carbon Dioxide 19 L (22-30) mmol/L BUN 24 H (7-17) mg/dL Creatinine 0.89 (0.52-1.04) mg/dL Glucose 159 H (74-99) mg/dL Calcium 8.8 (8.4-10.2) mg/dL AST 59 H (14-36) U/L ALT 47 H (4-34) U/L Alkaline Phosphatase 54 (38-126) U/L Total Protein 6.2 L (6.3-8.2) g/dL Albumin 3.6 (3.5-5.0) g/dL Calcium panel 11/28/23 Range/Units 20:43 Calcium 8.8 (8.4-10.2) mg/dL Albumin 3.6 (3.5-5.0) g/dL Pituitary panel 11/28/23 Range/Units 20:43 Sodium 138 (137-145) mmol/L Potassium 4.0 (3.5-5.1) mmol/L Chloride 108 H (98-107) mmol/L Carbon Dioxide 19 L (22-30) mmol/L BUN 24 H (7-17) mg/dL Creatinine 0.89 (0.52-1.04) mg/dL Glucose 159 H (74-99) mg/dL Calcium 8.8 (8.4-10.2) mg/dL Adrenal panel 11/28/23 Range/Units 20:43 Sodium 138 (137-145) mmol/L Potassium 4.0 (3.5-5.1) mmol/L Chloride 108 H (98-107) mmol/L Carbon Dioxide 19 L (22-30) mmol/L BUN 24 H (7-17) mg/dL Creatinine 0.89 (0.52-1.04) mg/dL Glucose 159 H (74-99) mg/dL Calcium 8.8 (8.4-10.2) mg/dL Total Bilirubin 1.9 H (0.2-1.3) mg/dL AST 59 H (14-36) U/L ALT 47 H (4-34) U/L Alkaline Phosphatase 54 (38-126) U/L Total Protein 6.2 L (6.3-8.2) g/dL Albumin 3.6 (3.5-5.0) g/dL - Imaging CT scan - abdomen: report reviewed, image reviewed CT scan - pelvis: report reviewed, image reviewed Assessment and Plan Assessment: Impression: Right ureteral calculus with obstruction, urinary tract infection with sepsis, pyelonephrosis right. New onset atrial fibrillation. Recommendations: This patient will continue with IV fluids IV antibiotics and will set up for a cystoscopy and stent today to drain the plan nephrotic urine and accelerate the treatment of the infection. At a later date she will need stone and stent removal. This has been explained understood and accepted by the patient.
[2023-11-29] MEDS: IV FLUID CONTINUATION 1,000 ML IV ONE (11:38)
[2023-11-29] MEDS ORDERED: PROPOFOL 10 MG/ML 20 ML VIAL IV ONE (13:39)
[2023-11-29] MEDS ORDERED: MIDAZOLAM 2 MG/2 ML VIAL ONE (13:39)
[2023-11-29] MEDS ORDERED: fentaNYL (PF) 50 MCG/ML 2 ML AMP ONE (13:39)
[2023-11-29] MEDS ORDERED: KETAMINE HCL IN 0.9 % NACL 50 MG/5 ML SYRINGE ONE (13:39)
[2023-11-29] MEDS: IOPAMIDOL-370 50ML BTL MISCELLANE ONE (14:10)
--- NOTE | 2023-11-29 14:23 | P.OP ---
Date of Procedure: 11/29/23 Preoperative Diagnosis: right ureteral calculus with obstruction, urinary tract infection with sepsis, right pyelonephrosis Postoperative Diagnosis: same Procedure(s) Performed: cystoscopy, placement of 6 x 22 double-J catheter right Anesthesia: GABRIELLE Surgeon: Lorenzo Jaime Estimated Blood Loss (ml): 0 Pathology: none sent Condition: stable Disposition: PACU Indications for Procedure: patient is 82. She presents with an elevated temperature infected urine and obstructing right ureteral stone. She has urinary tract infection with sepsis, right pyelonephrosis. She comes for double-J catheter Description of Procedure: patient brought up and suite. Given a sedative anesthetic. She's placed lithotomy position with a sterile prep and drape. Cystoscopy is performed. The patient has a notable cystocele. She has a trabeculated bladder. With some difficulty I eventually identify the right ureteral orifice. The use of the ureteral catheter I'm able to intubate the right ureteral orifice and passed a wire up by the 5 mm obstructing stone .I'm not sure I'm in the collecting system thus over the wire I pass an open-ended catheter and inject some contrast to make sure my of position and indeed the catheter is in the collecting system. I reintroduced the wire. I removed the open-ended catheter and passed a 6 x 22 double-J catheter that coils in the renal pelvis and in the bladder.the bladder is drained the patient is awake and returned recovery in good condition. She will be kept in the hospital overnight. In the future, 2-3 weeks she'll have a formal ureteroscopy laser lithotripsy stent and stone removal.
[2023-11-29] MEDS: IPRATROPIUM-ALBUTEROL 3 ML NEB INHALATION STA (14:49)
--- NOTE | 2023-11-29 14:50 | FL ---
EXAMINATION TYPE: FL guidance operating room DATE OF EXAM: 11/29/2023 2:37 PM COMPARISON: Pre Operative Images if available both CT/MRI or plain film CLINICAL INDICATION: Female, 82 years old with history of STENT PLACEMENT; TECHNIQUE: FL guidance operating room, multiple fluoroscopic images provided for procedure. Total fluoroscopy time: 38 seconds Total submitted images to PACS: 4 DAP: [id number] mGym2 Gycm2 uGym2 cGycm2 or equivalent. FINDINGS: Multiple intraoperative fluoroscopic images were taken resulting in ureteral stent placement with sup erior pigtail in appropriate position projecting over the renal pelvis. Mild dilation of the collecti ng system noted. No extravasation of contrast identified. No immediate intraoperative complication. Multilevel degeneration changes throughout the spine. IMPRESSION: 1. No evidence for intraoperative complication. 2. Please see the operative/procedural note for further details. [facility], , 11/29/2023 2:48 PM
[2023-11-29] MEDS: ACETAMINOPHEN TAB 325 MG TAB PO PRN (15:03)
--- NOTE | 2023-11-29 16:02 | P.HPIM ---
History of Present Illness H&P Date: 11/29/23 History of present illness; patient 82-year-old lady with past medical history significant for hypertension, hyperlipidemia presented the ER because of fall. Patient stated that for the last 3 days she has been feeling generalized weakness. Patient has been not feeling her usual self. Patient was also having low-grade fevers at home. Last night while trying to get out of the bed she slipped from the edge of the bed, falling on the floor. There was no complaint of loss of consciousness.. Patient not hit her head. There was no lightheaded or dizziness prior to the fall. Patient denies any chest pain or palpitations. There was no complaint of nausea vomiting abdominal pain. Because of fall, patient was brought to the ER Initial lab work done in the ER showed WBC 7.5, hemoglobin 13.9, platelet count 75, sodium 130, potassium 4, BUN 24, creatinine 0.89, glucose 159, bilirubin 1.9, AST of 10, ALT 47 UA done showed large amount of blood urine nitrite negative large amount of leukocyte Estrace urine WBC 92 Influenza A not detected Influenza B not detected RSV not detected COVID-19 not detected EKG done in the ER showed heart rate of 131, irregular in rhythm, no ST segment elevation or depression seen, no T-wave inversions seen. Ultrasound abdomen done showed no acute process Chest x-ray done in the ER showed no acute pulmonary process CT abdomen done showed partially obstructing right 3 mm ureteral stone Patient admitted to internal medicine service REVIEW OF SYSTEMS: CONSTITUTIONAL: As mentioned above HEENT: No recent visual problems or hearing problems. Denied any sore throat. CARDIOVASCULAR: No chest pain, orthopnea, PND, no palpitations, no syncope. PULMONARY: No shortness of breath, no cough, no hemoptysis. GASTROINTESTINAL: No diarrhea, no nausea, no vomiting, no abdominal pain. NEUROLOGICAL: No headaches, no weakness, no numbness. HEMATOLOGICAL: Denies any bleeding or petechiae. GENITOURINARY: Denies any burning micturition, frequency, or urgency. MUSCULOSKELETAL/RHEUMATOLOGICAL: Denies any joint pain, swelling, or any muscle pain. ENDOCRINE: Denies any polyuria or polydipsia. The rest of the 14-point review of systems is negative. PHYSICAL EXAMINATION: GENERAL: The patient is alert and oriented x3, not in any acute distress. Well developed, well nourished. HEENT: Pupils are round and equally reacting to light. EOMI. No scleral icterus. No conjunctival pallor. Normocephalic, atraumatic. No pharyngeal erythema. No thyromegaly. CARDIOVASCULAR: S1 and S2 present. No murmurs, rubs, or gallops. PULMONARY: Chest is clear to auscultation, no wheezing or crackles. ABDOMEN: Soft, nontender, nondistended, normoactive bowel sounds. No palpable organomegaly. MUSCULOSKELETAL: No joint swelling or deformity. EXTREMITIES: No cyanosis, clubbing, or pedal edema. NEUROLOGICAL: Gross neurological examination did not reveal any focal deficits. SKIN: No rashes. Assessment and plan Fall generalized weakness Right ureteral stone Complicated UTI Hypertension Hyperlipidemia Monitor vital signs Monitor CBC Monitor CMP Continue telemetry monitoring Ordered blood cultures ordered urine cultures Ordered IV fluids Ordered IV Rocephin Ordered pain management Urology consulted ID consulted Labs and medication were reviewed.. Continue same treatment. Continue with symptomatic treatment. Resume home medication. Monitor labs and vitals. DVT and GI prophylaxis. Further recommendations as per clinical course of the patient Dictation was produced using [employer] dictation software. please excuse any grammatical, word or spelling errors. Past Medical History Past Medical History: Hyperlipidemia, Hypertension, Osteoarthritis (OA) History of Any Multi-Drug Resistant Organisms: None Reported Past Surgical History: Breast Surgery Additional Past Surgical History / Comment(s): GROWTH REMOVED- skin lesions. Benign right breast excisional biopsy Past Anesthesia/Blood Transfusion Reactions: No Reported Reaction Past Psychological History: No Psychological Hx Reported Smoking Status: Never smoker Past Alcohol Use History: Rare Past Drug Use History: None Reported Medications and Allergies Home Medications Medication Instructions Recorded Confirmed Type Simvastatin [Zocor] 20 mg PO HS 11/29/23 11/29/23 History lisinopriL [Zestril] 10 mg PO DAILY 11/29/23 11/29/23 History Allergies Allergy/AdvReac Type Severity Reaction Status Date / Time No Known Allergies Allergy Verified 11/29/23 09:37 Physical Exam Vitals: Vital Signs Temp Pulse Resp BP Pulse Ox 11/29/23 09:16 97.7 F 80 18 119/67 95 11/29/23 06:03 98.1 F 70 19 110/67 97 11/29/23 04:45 97.4 F L 71 19 110/66 97 11/29/23 03:20 84 18 138/82 98 11/29/23 02:19 98 20 100/61 92 L 11/29/23 01:48 112 H 16 117/76 96 11/29/23 01:25 97.7 F 129 H 20 100/62 96 11/29/23 00:49 98.4 F 109 H 20 106/63 96 11/28/23 23:41 98.8 F 135 H 20 94/46 94 L 11/28/23 23:16 98.4 F 135 H 20 91/65 94 L 11/28/23 22:47 99.2 F 11/28/23 21:50 101.1 F H 11/28/23 21:19 100.6 F H 99 20 132/61 93 L 11/28/23 20:24 102.8 F H 107 H 20 164/76 93 L Intake and Output 11/28/23 11/29/23 11/29/23 22:59 06:59 14:59 Output Total 500 Balance -500 Output: Urine 500 Straight 500 Other: Weight 70.307 kg Results CBC & Chem 7: 11/28/23 21:14 11/28/23 20:43 Labs: Abnormal Lab Results - Last 24 Hours (Table) 11/28/23 11/28/23 11/28/23 Range/Units 20:43 21:14 23:00 Plt Count 75 L (150-450) k/uL Lymphocytes # 0.2 L (1.0-4.8) k/uL Chloride 108 H (98-107) mmol/L Carbon Dioxide 19 L (22-30) mmol/L BUN 24 H (7-17) mg/dL Glucose 159 H (74-99) mg/dL Total Bilirubin 1.9 H (0.2-1.3) mg/dL AST 59 H (14-36) U/L ALT 47 H (4-34) U/L Total Protein 6.2 L (6.3-8.2) g/dL Urine Appearance Cloudy H (Clear) Urine Protein 1+ H (Negative) Urine Ketones 1+ H (Negative) Urine Blood Large H (Negative) Ur Leukocyte Esterase Large H (Negative) Urine RBC 10 H (0-5) /hpf Urine WBC 92 H (0-5) /hpf Urine Bacteria Many H (None) /hpf
[2023-11-29] MEDS ORDERED: ATORVASTATIN 10 MG TAB PO SCH (21:00)
[2023-11-29] MEDS: SIMVASTATIN 20 MG TAB PO SCH (21:21)
--- NOTE | 2023-11-29 21:50 | P.CONS ---
History of Present Illness - Reason for Consult Consult date: 11/29/23 UTI Requesting physician: Mekhi Mendieta - Chief Complaint Weakness and fall x 1 day - History of Present Illness Patient is a 82-year-old female with a past medical history significant for hypertension hyperlipidemia osteoarthritis presenting to the hospital after pending the patient did have a fall patient has been complaining of feeling very weak over the last few days and the patient was attempting to get out of bed when she accidentally slipped off the edge of the bed and it fell denies hitting her head or loss of consciousness patient denies having any hea dache or URI symptom no chest pain shortness of breath or cough no nausea no vomiting some vague lower abdominal pain and no diarrhea on presentation to the hospital patient did have a fever of 102.8 F patient was tachycardic but not hypotensive mildly hypoxic on the 2 L nasal cannula oxygen patient did have normal white count of 7.5 creatinine was normal liver enzymes mildly elevated urine has been positive influenza RSV COVID testing was negative patient did have a chest x-ray no acute cardiopulmonary disease process gallbladder ultrasound unremarkable patient did have abdominal pelvis CT partially obstructing right proximal ureteral stone no hydronephrosis diverticulosis without diverticulitis patient was started on Rocephin infectious he was consulted for further management of antibiotic therapy Review of Systems Positive point and negatives has been mentioned in the HPI, complete review of systems was performed and all other systems are negative Past Medical History Past Medical History: Hyperlipidemia, Hypertension, Osteoarthritis (OA) History of Any Multi-Drug Resistant Organisms: None Reported Past Surgical History: Breast Surgery Additional Past Surgical History / Comment(s): GROWTH REMOVED- skin lesions. Benign right breast excisional biopsy Past Anesthesia/Blood Transfusion Reactions: No Reported Reaction Past Psychological History: No Psychological Hx Reported Smoking Status: Never smoker Past Alcohol Use History: Rare Past Drug Use History: None Reported Medications and Allergies Home Medications Medication Instructions Recorded Confirmed Type Simvastatin [Zocor] 20 mg PO HS 11/29/23 11/29/23 History lisinopriL [Zestril] 10 mg PO DAILY 11/29/23 11/29/23 History Allergies Allergy/AdvReac Type Severity Reaction Status Date / Time No Known Allergies Allergy Verified 11/29/23 09:37 Physical Exam Vitals: Vital Signs Temp Pulse Resp BP Pulse Ox 11/29/23 10:16 78 16 127/64 96 11/29/23 09:16 97.7 F 80 18 119/67 95 11/29/23 06:03 98.1 F 70 19 110/67 97 11/29/23 04:45 97.4 F L 71 19 110/66 97 11/29/23 03:20 84 18 138/82 98 11/29/23 02:19 98 20 100/61 92 L 11/29/23 01:48 112 H 16 117/76 96 11/29/23 01:25 97.7 F 129 H 20 100/62 96 11/29/23 00:49 98.4 F 109 H 20 106/63 96 11/28/23 23:41 98.8 F 135 H 20 94/46 94 L 11/28/23 23:16 98.4 F 135 H 20 91/65 94 L 11/28/23 22:47 99.2 F 11/28/23 21:50 101.1 F H 11/28/23 21:19 100.6 F H 99 20 132/61 93 L 11/28/23 20:24 102.8 F H 107 H 20 164/76 93 L Intake and Output 11/28/23 11/29/23 11/29/23 22:59 06:59 14:59 Output Total 500 Balance -500 Output: Urine 500 Straight 500 Other: Weight 70.307 kg GENERAL DESCRIPTION: Elderly female lying in bed, no distress. No tachypnea or accessory muscle of respiration use. HEENT: Shows Pallor , no scleral icterus. Oral mucous membrane is dry. No pharyngeal erythema or thrush NECK: Trachea central, no thyromegaly. LUNGS: Unlabored breathing. Clear to auscultation anteriorly. No wheeze or crackle. HEART: S1, S2, regular rate and rhythm. No loud murmur ABDOMEN: Soft, no tenderness , guarding or rigidity, no organomegaly EXTREMITIES: No edema of feet. SKIN: No rash, no masses palpable. NEUROLOGICAL: The patient is awake, alert, oriented x3, mood and affect normal. Results CBC & Chem 7: 11/30/23 10:47 11/28/23 20:43 Labs: Abnormal Lab Results - Last 24 Hours (Table) 11/28/23 11/28/23 11/28/23 Range/Units 20:43 21:14 23:00 Plt Count 75 L (150-450) k/uL Lymphocytes # 0.2 L (1.0-4.8) k/uL Chloride 108 H (98-107) mmol/L Carbon Dioxide 19 L (22-30) mmol/L BUN 24 H (7-17) mg/dL Glucose 159 H (74-99) mg/dL Total Bilirubin 1.9 H (0.2-1.3) mg/dL AST 59 H (14-36) U/L ALT 47 H (4-34) U/L Total Protein 6.2 L (6.3-8.2) g/dL Urine Appearance Cloudy H (Clear) Urine Protein 1+ H (Negative) Urine Ketones 1+ H (Negative) Urine Blood Large H (Negative) Ur Leukocyte Esterase Large H (Negative) Urine RBC 10 H (0-5) /hpf Urine WBC 92 H (0-5) /hpf Urine Bacteria Many H (None) /hpf Assessment and Plan (1) Sepsis Current Visit: Yes Status: Acute Code(s): A41.9 - SEPSIS, UNSPECIFIED ORGANISM SNOMED Code(s): 13675492 (2) UTI (urinary tract infection) Current Visit: Yes Status: Acute Code(s): N39.0 - URINARY TRACT INFECTION, SITE NOT SPECIFIED SNOMED Code(s): 04298225 Plan: 1patient presented to hospital with sepsis in this patient who did have fever tachycardia meeting currently for SIRS source likely urinary patient did have lower abdominal pain positive UA and left-sided ureteral stone concerning for possible complicated UTI likely from enteric gram-negative pathogen 2-we will wait for the blood and urine culture to finalize and possible plan for cystoscopy and ureteral stent placement by urology 3-we will increase the dose of Rocephin to 2 g daily We will follow on clinical condition and cultures to further adjust medication if needed Thank you for this consultation we will follow the patient along with you Dictation was produced using [employer] dictation software. please excuse any grammatical, word or spelling errors. Time with Patient: Greater than 30
[2023-11-29 23:46] LABS: Glucose,Whole Blood 123 mg/dL (70-110)
[2023-11-29] MEDS: IPRATROPIUM-ALBUTEROL 3 ML NEB INHALATION PRN (23:53)
--- NOTE | 2023-11-30 01:07 | XR ---
EXAM: XR Chest, 1 View CLINICAL HISTORY: ITS.REASON XR Reason: short of breath and wheezing TECHNIQUE: Frontal view of the chest. COMPARISON: No relevant prior studies available. FINDINGS: Lungs: Perihilar consolidations, concerning for pneumonia. Pleural space: Small LEFT pleural effusion. No pneumothorax. Heart: Unremarkable. No cardiomegaly. Mediastinum: Unremarkable. Normal mediastinal contour. Bones/joints: Unremarkable. No acute fracture. IMPRESSION: 1. Perihilar consolidations, concerning for pneumonia. 2. Small LEFT pleural effusion.
[2023-11-30] MEDS: DILTIAZEM DRIP BOLUS FROM BAG 1 MG SOLN IV ONE (03:29)
[2023-11-30] MEDS: DILTIAZEM 125 MG in SODIUM CHLORIDE 0.9% 100 ML IV SCH (03:31)
--- NOTE | 2023-11-30 10:03 | P.CRDCN ---
History of Present Illness Consult date: 11/30/23 History of present illness: HISTORY OF PRESENTING ILLNESS Patient is a 82-year-old female with PMH of hypertension, dyslipidemia. She reports that she has not had any prior cardiac history. She presented to the hospital because of 3 to 4 days of worsening generalized weakness and fall. Patient reports that she was trying to get out of the bed when she slipped from the edge and fell on the floor. She did not report losing consciousness. She denies hitting her head. She denies any lightheadedness dizziness before the event or after the event. She denies any symptoms of chest pain chest pressure. She is unable to tell me that she has been feeling more short of breath or not at home prior to this event. On admission to ER, her initial ECG shows sinus rhythm with frequent PACs. Repeat ECG shows atrial fibrillation with RVR with heart rates in 150s. She also had mild ST depressions in lateral leads with higher rates. Following this troponin was ordered which was elevated at 0.17, 0.194. Her chest x-ray does show mild pulmonary congestion REVIEW OF SYSTEMS 14 point review of system is negative except what is mentioned above in HPI. PHYSICAL EXAMINATION Vital signs reviewed. Head: Normocephalic. Eyes: Sclerae nonicteric. Neck: Brisk carotid upstroke, elevated jugular venous distention. Lungs: Mild crackles audible in bilateral lung mata. Heart: Irregularly irregular, S1-S2 audible, no significant murmurs appreciated Abdomen: Soft nontender, positive bowel sounds. Extremities: No edema, intact distal pulses. Neuro: Alert, oritented, no focal deficits. Detailed neuro exam was not performed. ASSESSMENT New onset atrial fibrillation. [id number] score 5 NSTEMI type II Mild pulmonary congestion, likely CHF, EF unknown at this time Sepsis with UTI, gram-negative bacilli Mechanical fall Generalized weakness PLAN Discontinue Cardizem drip. Start metoprolol 50 mg twice daily Start IV heparin drip Start aspirin 81 mg, Lipitor 40 mg daily Give 1 dose of Lasix 40 mg IV. Discontinue IV fluids Obtain echocardiogram Monitor on telemetry Obtain magnesium levels, TSH, HbA1c, NT proBNP, lipid panel, CK level Kyle Buitrago MD, FACC, RPVI Thank you for allowing [facility] to participate in this patient's care. Feel free to reach out in case of any followup questions. Past Medical History Past Medical History: Hyperlipidemia, Hypertension, Osteoarthritis (OA) History of Any Multi-Drug Resistant Organisms: None Reported Past Surgical History: Breast Surgery Additional Past Surgical History / Comment(s): GROWTH REMOVED- skin lesions. Benign right breast excisional biopsy Past Anesthesia/Blood Transfusion Reactions: No Reported Reaction Past Psychological History: No Psychological Hx Reported Smoking Status: Never smoker Past Alcohol Use History: Rare Past Drug Use History: None Reported Medications and Allergies Home Medications Medication Instructions Recorded Confirmed Type Simvastatin [Zocor] 20 mg PO HS 11/29/23 11/29/23 History lisinopriL [Zestril] 10 mg PO DAILY 11/29/23 11/29/23 History Allergies Allergy/AdvReac Type Severity Reaction Status Date / Time No Known Allergies Allergy Verified 11/29/23 09:37 Physical Exam Vitals: Vital Signs Temp Pulse Pulse Pulse Resp BP BP 11/30/23 08:27 112 H 11/30/23 08:17 112 H 11/30/23 04:00 99.5 F 120 H 18 125/71 11/30/23 02:00 120 H 18 11/30/23 00:14 109 H 11/30/23 00:00 99.6 F 88 18 110/78 11/29/23 23:53 111 H 11/29/23 20:00 98 F 87 18 110/67 11/29/23 18:45 98.6 F 11/29/23 15:50 100.3 F H 103 H 18 125/58 11/29/23 15:30 101.2 F H 104 H 21 148/64 11/29/23 15:15 103 H 21 153/64 11/29/23 15:00 101.5 F H 105 H 19 146/65 11/29/23 14:45 101.3 F H 97 19 158/68 11/29/23 14:30 101.3 F H 97 18 149/87 11/29/23 14:22 101.3 F H 109 H 16 119/78 11/29/23 11:48 98.7 F 78 18 131/63 11/29/23 11:12 98.0 F 75 16 131/71 11/29/23 10:16 78 16 127/64 Pulse Ox 11/30/23 08:27 11/30/23 08:17 11/30/23 04:00 92 L 11/30/23 02:00 11/30/23 00:14 11/30/23 00:00 95 11/29/23 23:53 11/29/23 20:00 91 L 11/29/23 18:45 11/29/23 15:50 94 L 11/29/23 15:30 96 11/29/23 15:15 96 11/29/23 15:00 94 L 11/29/23 14:45 99 11/29/23 14:30 96 11/29/23 14:22 96 11/29/23 11:48 95 11/29/23 11:12 95 11/29/23 10:16 96 Intake and Output 11/29/23 11/30/23 11/30/23 22:59 06:59 14:59 Intake Total 240 Balance 240 Intake: Oral 240 Other: Voiding Method Toilet Toilet # Voids 1 2 1 # Bowel Movements 1 Weight 70.307 kg 75.4 kg Results 11/28/23 21:14 11/28/23 20:43 Cardiac Enzymes 11/29/23 11/29/23 Range/Units 10:34 16:20 Troponin I 0.175 H* 0.194 H* (0.000-0.034) ng/mL Current Medications Generic Name Dose Route Start Last Admin Trade Name Rodrigo PRN Reason Stop Dose Admin Acetaminophen 650 mg 11/28/23 23:02 11/30/23 03:07 Acetaminophen Tab 325 Mg Tab PO 650 mg Q6HR PRN Administration Mild Pain or Fever > 100.5 Albuterol/Ipratropium 3 ml 11/29/23 23:34 11/30/23 08:17 Ipratropium-Albuterol 3 Ml Neb INHALATION 3 ml RT-QID PRN Administration Shortness Of Breath Or Wheezing Furosemide 40 mg 11/30/23 09:58 Furosemide 10 Mg/Ml 4 Ml Vial IV 11/30/23 09:59 ONCE STA Ceftriaxone Sodium 2 gm/ 50 mls @ 100 mls/hr 11/30/23 09:00 11/30/23 08:38 Sodium Chloride IVPB 100 mls/hr Q24HR ADA Administration Ibuprofen 400 mg 11/28/23 23:02 Ibuprofen 400 Mg Tab PO Q6HR PRN Mild Pain or Fever > 100.5 Metoprolol Tartrate 25 mg 11/30/23 10:00 Metoprolol Tartrate 25 Mg Tab PO BID ADA Naloxone HCl 0.2 mg 11/28/23 23:02 Naloxone 0.4 Mg/Ml 1 Ml Vial IV Q2M PRN Opioid Reversal Simvastatin 20 Mg 1 each 11/29/23 21:00 11/29/23 21:21 Tab PO 1 each HS ADA Administration Ondansetron HCl 4 mg 11/28/23 23:02 Ondansetron 4 Mg/2 Ml Vial IVP Q8HR PRN Nausea And Vomiting Intake and Output 11/29/23 11/30/23 11/30/23 22:59 06:59 14:59 Intake Total 240 Balance 240 Intake: Oral 240 Other: Voiding Method Toilet Toilet # Voids 1 2 1 # Bowel Movements 1 Weight 70.307 kg 75.4 kg 11/28/23 21:14 11/28/23 20:43
[2023-11-30] MEDS ORDERED: HEPARIN SODIUM 1,000 UN/ML (10ML VL) IV PRN (10:05)
[2023-11-30] MEDS: HEPARIN SOD,PORK IN 0.45% NACL 25,000 UNIT in 0.45% NACL 1 250ML.BAG IV SCH (11:07)
[2023-11-30] MEDS: HEPARIN SODIUM 1,000 UN/ML (10ML VL) IV ONE (11:09)
[2023-11-30] MEDS: METOPROLOL TARTRATE 25 MG TAB PO SCH (11:09)
[2023-11-30] MEDS: FUROSEMIDE 10 MG/ML 4 ML VIAL IV STA (11:09)
[2023-11-30] MEDS: ATORVASTATIN 40 MG TAB PO SCH (11:11)
[2023-11-30] MEDS: ASPIRIN 81 MG PO SCH (11:11)
--- NOTE | 2023-11-30 11:13 | P.PN ---
Subjective Progress Note Date: 11/30/23 Principal diagnosis: Right ureteral calculus, UTI The patient underwent placement of a right ureteral stent yesterday. She reports mild right flank discomfort. She denies dysuria and hematuria. Preliminary blood cultures show E. coli. Objective - Vital Signs Vital signs: Vital Signs Temp 99.5 F 11/30/23 04:00 Pulse 120 H 11/30/23 04:00 Resp 18 11/30/23 04:00 BP 125/71 11/30/23 04:00 Pulse Ox 92 L 11/30/23 04:00 FiO2 Intake & Output 11/29/23 11/30/23 11/30/23 18:59 06:59 18:59 Intake Total 740 Balance 740 Weight 70.307 kg 75.4 kg Intake: IV 500 Oral 240 Other: Voiding Method Toilet # Voids 1 2 # Bowel Movements 1 - Constitutional General appearance: Present: average body habitus, cooperative, no acute distress - Psychiatric Psychiatric: Present: A&O x's 3 - Labs CBC & Chem 7: 11/28/23 21:14 11/28/23 20:43 Labs: Abnormal Lab Results - Last 24 Hours (Table) 11/29/23 11/29/23 11/29/23 Range/Units 10:34 16:20 23:45 POC Glucose (mg/dL) 123 H (70-110) mg/dL Troponin I 0.175 H* 0.194 H* (0.000-0.034) ng/mL Microbiology - Last 24 Hours (Table) 11/28/23 21:36 Blood Culture Gram Stain - Preliminary Blood Blood Culture - Preliminary Molecular ID Assessment and Plan (1) UTI (urinary tract infection) Current Visit: Yes Status: Acute Code(s): N39.0 - URINARY TRACT INFECTION, SITE NOT SPECIFIED SNOMED Code(s): 07028750 (2) Ureteral stone Current Visit: Yes Status: Acute Code(s): N20.1 - CALCULUS OF URETER SNOMED Code(s): 44165999 Plan: - Continue Rocephin. - Await final culture results. - Patient will be discharged home on appropriate antibiotics. Arrangements will then be made for her to undergo elective cystoscopy, right ureteral stent removal, and ureteroscopic removal of the right ureteral calculus.
[2023-11-30 11:15] LABS: Basophils % (A) 0 %; Eosinophils % (A) 0 %; HCT 41.8 % (34.0-46.0); HGB 13.3 gm/dL (11.4-16.0); Lymphocytes # (A) 0.4 k/uL (1.0-4.8); Lymphocytes % (A) 5 %; MCH 29.5 pg (25.0-35.0); MCHC 31.8 g/dL (31.0-37.0); Mean Platelet Volume 10.8; Monocytes # (A) 0.2 k/uL (0-1.0); Monocytes % (A) 3 %; Neutrophils # (A) 7.3 k/uL (1.3-7.7); Neutrophils % (A) 91 %; RBC 4.49 m/uL (3.80-5.40); RDW 14.3 % (11.5-15.5)
[2023-11-30 11:28] LABS: INR 1.2 (<1.2); Partial Thromboplastin Time 26.8 sec (22.0-30.0); Prothrombin Time 12.3 sec (10.0-12.5)
[2023-11-30 11:29] LABS: Platelet Count 45 k/uL (150-450)
[2023-11-30 11:32] LABS: Magnesium 1.7 mg/dL (1.6-2.3)
[2023-11-30 11:42] LABS: NT-Pro-B-Type Natriuretic Pept 5560 pg/mL
--- NOTE | 2023-11-30 12:34 | P.PN ---
Subjective Progress Note Date: 11/30/23 Principal diagnosis: Reason for follow-up is complicated UTI and bacteremia Patient is a 82-year-old female with a past medical history significant for hypertension hyperlipidemia osteoarthritis presenting to the hospital after pending the patient did have a fall patient has been complaining of feeling very weak and has been diagnosed with sepsis secondary to complicated UTI in this patient who is status post cystoscopy with right ureteral stent placement and the blood culture came positive with E. coli. On today's evaluation that is 11/30/2023,the patient did have improvement in her fever pattern with a low-grade fever of 99.5 F at 4 AM, patient is on 3 L nasal cannula requiring supplemental oxygen and denies any shortness of breath no chest pain or cough.Patient denies having any nausea or vomiting, no abdominal pain and no diarrhea has been reported. Patient white count is 8.0, blood culture positive for E. coli urine is growing gram-negative Objective - Vital Signs Vital signs: Vital Signs Temp 99.5 F 11/30/23 04:00 Pulse 112 H 11/30/23 08:27 Resp 18 11/30/23 04:00 BP 125/71 11/30/23 04:00 Pulse Ox 92 L 11/30/23 04:00 FiO2 Intake & Output 11/29/23 11/30/23 11/30/23 18:59 06:59 18:59 Intake Total 740 118 Balance 740 118 Weight 70.307 kg 75.4 kg Intake: IV 500 Oral 240 118 Other: Voiding Method Toilet # Voids 1 2 1 # Bowel Movements 1 1 - Exam GENERAL DESCRIPTION: An elderly female lying in bed in no distress RESPIRATORY SYSTEM: Unlabored breathing , decreased breath sounds at bases HEART: S1 S2 regular rate and rhythm , ABDOMEN: Soft , no tenderness EXTREMITIES: No edema feet - Labs CBC & Chem 7: 11/30/23 10:47 11/28/23 20:43 Labs: Abnormal Lab Results - Last 24 Hours (Table) 11/29/23 11/29/23 11/30/23 Range/Units 16:20 23:45 10:47 Plt Count 45 L (150-450) k/uL Lymphocytes # 0.4 L (1.0-4.8) k/uL INR (<1.2) POC Glucose (mg/dL) 123 H (70-110) mg/dL Troponin I 0.194 H* (0.000-0.034) ng/mL 11/30/23 Range/Units 10:47 Plt Count (150-450) k/uL Lymphocytes # (1.0-4.8) k/uL INR 1.2 H (<1.2) POC Glucose (mg/dL) (70-110) mg/dL Troponin I (0.000-0.034) ng/mL Microbiology - Last 24 Hours (Table) 11/28/23 21:36 Blood Culture Gram Stain - Preliminary Blood Blood Culture - Preliminary Escherichia coli Molecular ID 11/28/23 23:00 Urine Culture - Preliminary Urine,Voided Gram Neg Bacilli Assessment and Plan (1) Sepsis Current Visit: Yes Status: Acute Code(s): A41.9 - SEPSIS, UNSPECIFIED ORGANISM SNOMED Code(s): 08181207 (2) UTI (urinary tract infection) Current Visit: Yes Status: Acute Code(s): N39.0 - URINARY TRACT INFECTION, SITE NOT SPECIFIED SNOMED Code(s): 06544383 Plan: 1patient presented to hospital with sepsis in this patient who did have fever tachycardia meeting currently for SIRS source likely urinary patient did have lower abdominal pain positive UA and left-sided ureteral stone concerning for possible complicated UTI likely from enteric gram-negative pathogen 2-patient is status post cystoscopy and right ureteral stent placement by urology 3 blood pressure is coming positive with E. coli urine is growing gram-negative 4-patient is currently being treated with Rocephin 2 g daily while waiting for the culture to finalize Dictation was produced using [employer] dictation software. please excuse any grammatical, word or spelling errors. Time with Patient: Less than 30
--- NOTE | 2023-11-30 12:37 | CA ---
Transthoracic Echo Report Name: Jennifer Moya Age: 82 Gender: F : 1940 Exam Date: 11/30/2023 11:17 Exam Location: [facility] Ht (in): 62 Wt (lb): 166 Ordering Physician: Trent Yuan DO Attending/Referring Phys: Human Resources Consultant Maryuri Abreu RDCS Procedure CPT: Indications: New Onset Atrial Fibrillation Cardiac Hx: Technical Quality: Good Contrast 1: Total Dose (mL): Contrast 2: Total Dose (mL): MEASUREMENTS (Male / Female) Normal Values 2D ECHO LV Diastolic Diameter PLAX 5.5 cm 4.2 - 5.9 / 3.9 - 5.3 cm LV Systolic Diameter PLAX 3.6 cm IVS Diastolic Thickness 0.8 cm 0.6 - 1.0 / 0.6 - 0.9 cm LVPW Diastolic Thickness 0.7 cm 0.6 - 1.0 / 0.6 - 0.9 cm LV Relative Wall Thickness 0.3 RV Internal Dim ED PLAX 3.0 cm LA Systolic Diameter LX 3.6 cm 3.0 - 4.0 / 2.7 - 3.8 cm LV Diastolic Volume MOD 4C 88.3 cm??? LV Systolic Volume MOD 4C 40.9 cm??? LV Ejection Fraction MOD 4C 53.7 % LV Cardiac Index MOD 4C 1852.2 cm???/min???m??? LV Diastolic Length 4C 6.8 cm LV Systolic Length 4C 5.6 cm LV Diastolic Volume MOD 2C 69.9 cm??? LV Systolic Volume MOD 2C 34.8 cm??? LV Ejection Fraction MOD 2C 50.2 % LV Cardiac Index MOD 2C 1373.8 cm???/min???m??? LV Diastolic Length 2C 7.4 cm LV Systolic Length 2C 6.0 cm LA Volume 45.9 cm??? 18 - 58 / 22 - 52 cm??? LA Volume Index 24.9 cm???/m??? 16 - 28 cm???/m??? M-MODE Aortic Root Diameter MM 3.0 cm AV Cusp Separation MM 2.1 cm DOPPLER AV Peak Velocity 127.1 cm/s AV Peak Gradient 6.5 mmHg MV Area PHT 6.3 cm??? Mitral E Point Velocity 93.9 cm/s Mitral A Point Velocity 106.3 cm/s Mitral E to A Ratio 0.9 MV Deceleration Time 120.1 ms TR Peak Velocity 273.3 cm/s TR Peak Gradient 29.9 mmHg Right Ventricular Systolic Press 34.5 mmHg FINDINGS Left Ventricle Left ventricular ejection fraction is estimated at 50-55 %. Mildly increased left ventricular diastolic diameter. Left ventricular wall thickness normal. Right Ventricle Normal right ventricular size and function. Prominent moderator band in right ventricle (normal variant). Right Atrium Normal right atrial size. No right atrial thrombus or mass seen. Left Atrium Normal left atrial size. No left atrial thrombus or mass present. Mitral Valve Structurally normal mitral valve. No mitral stenosis, or prolapse. Mild mitral regurgitation.mitral annular calcification. Aortic Valve Trileaflet aortic valve. No aortic valve stenosis or regurgitation.aortic valve sclerosis. Tricuspid Valve Structurally normal tricuspid valve. Mild tricuspid regurgitation. Pulmonic Valve Structurally normal pulmonic valve. Trace to mild pulmonic regurgitation. Pericardium No pericardial or pleural effusion. Aorta Normal size aortic root and proximal ascending aorta. CONCLUSIONS 1. Left ventricular systolic function borderline normal 2. Mild mitral and tricuspid regurgitation Previewed by: Dr. Samantha Heredia MD (Electronically Signed) Final Date: 30 November 2023 12:36
--- NOTE | 2023-11-30 13:15 | CDI ---
Documentation Clarification Form Date: 11/30/2023 01:03:14 PM From: Zee Jasso RN CCDS Phone: [phone] Admit Date: 11/28/2023 11:45:00 PM Patient Name: Jennifer Moya Visit Number: [id number] Discharge Date: ATTENTION: The Clinical Documentation Specialists (CDI) and [facility] Coding Staff appreciate your assistance in clarifying documentation. Please respond to the clarification below the line at the bottom and electronically sign. The CDI & [facility] Coding staff will review the response and follow-up if needed. Please note: Queries are made part of the Legal Health Record. If you have any questions, please contact the author of this message via ITS. Doctor: Malik Serra The patient has Sepsis documented in ID consult and Urology consult on 11/28. Based on this information and the findings below, is there an additional diagnosis that is clinically appropriate for this patient? History/Risk Factors: 82 year old female presents to the ED because of a fall feeling generalized weakness, having low grade fevers at home and slipped out of bed falling o the floor. Medical history; HLD, HTN and OA, 11/28, H/P. Clinical Indicators: WBC, 11/27: 7.5 Lactic acid: 11/27 2.0 Blood cultures: 11/27 Escherichia coli molecular ID Urine culture: 11/27 Gram negative Bacilli Vitals signs: 11/27 B/P 164/76 107 102.8f Oral RR 20 SpO2 93% ra Treatment: 11/27 Tylenol po x1; Motrin po x1; 11/27 11/29 0.9ns [id number] ID Consult, 11/29 patient presented to hospital with sepsis in this patient who did have fever tachycardia meeting currently for SIRS source likely urinary patient did have lower abdominal pain positive UA from enteric gram negative pathogen. Antibiotics: 11/27 Rocephin Ivp x 1; 11/28 Ceftrixone Ivpb x1 Daily x 1; 11/29 Ceftriaxone Ivpb Q24H; IV Bolus: 11/27 0.9NS 1L IV x1; 11/27 0.9NS 500cc IV x 2 Is there an additional diagnosis that is clinically appropriate for this patient? [ ] Sepsis, present on admission [ ] Sepsis ruled out [ ] Other, please specify [ ] Unable to determine SIRS Criteria: 2 or more of the following may indicate SIRS Temperature < 96.8F (36C) or > 101.0F (38.3C) Heart Rate > 90 bpm Respiratory Rate > 20 breaths/min or PaCO2 < 32 mmHg White Blood Cell Count > 12,000 or < 4,000 cells/mm3 or > 10% bands Documented 11/30 Medicine progress note : Sepsis POA secondary to complicated UTI and bacteremia with Ecoli. Connie CASTAÑEDA, Dr Serra. (Template Last Reviewed: February 2022) NAY
[2023-11-30 15:19] LABS: Chol/HDL Ratio 5.57 Ratio; LDL Cholesterol,Calculated 25.2 mg/dL (0.0-131.0)
[2023-11-30 22:03] LABS: Chol/HDL Ratio 5.85 Ratio; LDL Cholesterol,Calculated 27.2 mg/dL (0.0-131.0)
[2023-12-01 06:34] LABS: Basophils % (A) 0 %; Eosinophils % (A) 0 %; HGB 12.4 gm/dL (11.4-16.0); Lymphocytes # (A) 0.5 k/uL (1.0-4.8); Lymphocytes % (A) 6 %; MCH 30.2 pg (25.0-35.0); MCHC 33.4 g/dL (31.0-37.0); MCV 90.4 fL (80.0-100.0); Mean Platelet Volume 11.6; Monocytes # (A) 0.4 k/uL (0-1.0); Monocytes % (A) 5 %; Neutrophils # (A) 7.2 k/uL (1.3-7.7); Neutrophils % (A) 87 %; Platelet Count 43 k/uL (150-450); RBC 4.09 m/uL (3.80-5.40); RDW 14.2 % (11.5-15.5); WBC 8.3 k/uL (3.8-10.6)
[2023-12-01 06:36] LABS: INR 1.1 (<1.2); Prothrombin Time 11.6 sec (10.0-12.5)
[2023-12-01 08:07] LABS: Large Platelets Present
[2023-12-01] MEDS: ONDANSETRON 4 MG/2 ML VIAL IVP PRN (08:23)
[2023-12-01] MEDS: DILTIAZEM DRIP BOLUS FROM BAG 1 MG SOLN IV ONE (08:39)
[2023-12-01] MEDS: DILTIAZEM 125 MG in SODIUM CHLORIDE 0.9% 100 ML IV SCH (08:39)
--- NOTE | 2023-12-01 09:04 | P.PN ---
Subjective Progress Note Date: 12/01/23 Principal diagnosis: Right ureteral calculus, UTI The patient underwent placement of a right ureteral stent on November 28. She remains afebrile. However, she is tachycardic this morning and feels poorly. She reports nausea. She denies dysuria and hematuria. Preliminary blood cultures show E. coli, and preliminary urine culture shows gram-negative bacilli. Objective - Vital Signs Vital signs: Vital Signs Temp 98.4 F 12/01/23 04:28 Pulse 126 H 12/01/23 05:20 Resp 18 12/01/23 05:20 BP 118/76 12/01/23 05:20 Pulse Ox 91 L 12/01/23 05:20 FiO2 Intake & Output 11/30/23 11/30/23 12/01/23 06:59 18:59 06:59 Intake Total 118 120 Balance 118 120 Weight 75.4 kg 74.5 kg Intake: Oral 118 120 Other: Voiding Method Toilet Toilet Toilet # Voids 2 3 2 # Bowel Movements 2 - Constitutional General appearance: Present: average body habitus, mild distress - Psychiatric Psychiatric: Present: A&O x's 3 - Labs CBC & Chem 7: 12/01/23 05:58 11/28/23 20:43 Labs: Abnormal Lab Results - Last 24 Hours (Table) 11/30/23 11/30/23 11/30/23 Range/Units 10:47 10:47 10:47 Plt Count (150-450) k/uL Lymphocytes # (1.0-4.8) k/uL INR (<1.2) Hemoglobin A1c 6.1 H (<=6.0) % Triglycerides 150.00 H 153.00 H (0.00-149.00) mg/dL HDL Cholesterol 11.80 L 12.20 L (40.00-60.00) mg/dL 11/30/23 11/30/23 Range/Units 10:47 10:47 Plt Count 45 L (150-450) k/uL Lymphocytes # 0.4 L (1.0-4.8) k/uL INR 1.2 H (<1.2) Hemoglobin A1c (<=6.0) % Triglycerides (0.00-149.00) mg/dL HDL Cholesterol (40.00-60.00) mg/dL Microbiology - Last 24 Hours (Table) 11/28/23 21:36 Blood Culture Gram Stain - Preliminary Blood Blood Culture - Preliminary Escherichia coli Molecular ID 11/28/23 23:00 Urine Culture - Preliminary Urine,Voided Gram Neg Bacilli Assessment and Plan (1) UTI (urinary tract infection) Current Visit: Yes Status: Acute Code(s): N39.0 - URINARY TRACT INFECTION, SITE NOT SPECIFIED SNOMED Code(s): 64251771 (2) Ureteral stone Current Visit: Yes Status: Acute Code(s): N20.1 - CALCULUS OF URETER SNOMED Code(s): 80407702 Plan: - Continue Rocephin. - Await final culture results. - Patient will be discharged home on appropriate antibiotics. Arrangements will then be made for her to undergo elective cystoscopy, right ureteral stent removal, and ureteroscopic removal of the right ureteral calculus.
--- NOTE | 2023-12-01 13:20 | P.PN ---
Subjective Progress Note Date: 12/01/23 Principal diagnosis: Reason for follow-up is complicated UTI and bacteremia Patient is a 82-year-old female with a past medical history significant for hypertension hyperlipidemia osteoarthritis presenting to the hospital after pending the patient did have a fall patient has been complaining of feeling very weak and has been diagnosed with sepsis secondary to complicated UTI in this patient who is status post cystoscopy with right ureteral stent placement and the blood culture came positive with E. coli. On today's evaluation that is 12/01/2023, the patient did have a fever of 101 F last night the patient is afebrile this morning patient is breathing comfortably on 3 L current oxygen denies any chest pain shortness of breath or cough no nausea vomiting no abdominal pain or diarrhea. Patient white count is 8.3 blood and urine culture with E. coli that that is sensitive to ceftriaxone Objective - Vital Signs Vital signs: Vital Signs Temp 98.3 F 12/01/23 11:30 Pulse 81 12/01/23 11:30 Resp 16 12/01/23 11:30 BP 124/69 12/01/23 11:30 Pulse Ox 93 L 12/01/23 11:30 FiO2 Intake & Output 11/30/23 12/01/23 12/01/23 18:59 06:59 18:59 Intake Total 118 120 Balance 118 120 Weight 74.5 kg Intake: Oral 118 120 Other: Voiding Method Toilet Toilet Toilet # Voids 3 2 1 # Bowel Movements 2 - Exam GENERAL DESCRIPTION: An elderly female lying in bed in no distress RESPIRATORY SYSTEM: Unlabored breathing , decreased breath sounds at bases HEART: S1 S2 regular rate and rhythm , ABDOMEN: Soft , no tenderness EXTREMITIES: No edema feet - Labs CBC & Chem 7: 12/01/23 05:58 11/28/23 20:43 Labs: Abnormal Lab Results - Last 24 Hours (Table) 11/30/23 11/30/23 11/30/23 Range/Units 10:47 10:47 10:47 Plt Count (150-450) k/uL Lymphocytes # (1.0-4.8) k/uL Hemoglobin A1c 6.1 H (<=6.0) % Triglycerides 150.00 H 153.00 H (0.00-149.00) mg/dL HDL Cholesterol 11.80 L 12.20 L (40.00-60.00) mg/dL 10/08/24 Range/Units 05:58 Plt Count 43 L (150-450) k/uL Lymphocytes # 0.5 L (1.0-4.8) k/uL Hemoglobin A1c (<=6.0) % Triglycerides (0.00-149.00) mg/dL HDL Cholesterol (40.00-60.00) mg/dL Microbiology - Last 24 Hours (Table) 11/28/23 21:36 Blood Culture Gram Stain - Final Blood Blood Culture - Final Escherichia coli Molecular ID 11/28/23 23:00 Urine Culture - Final Urine,Voided Escherichia coli Assessment and Plan (1) Sepsis Current Visit: Yes Status: Acute Code(s): A41.9 - SEPSIS, UNSPECIFIED ORGANISM SNOMED Code(s): 59699894 (2) UTI (urinary tract infection) Current Visit: Yes Status: Acute Code(s): N39.0 - URINARY TRACT INFECTION, SITE NOT SPECIFIED SNOMED Code(s): 61975153 Plan: 1patient presented to hospital with sepsis in this patient who did have fever tachycardia meeting currently for SIRS source likely urinary patient did have lower abdominal pain positive UA and left-sided ureteral stone concerning for possible complicated UTI likely from enteric gram-negative pathogen 2-patient is status post cystoscopy and right ureteral stent placement by urology 3 blood culture is coming positive with E. coli urine is growing E. coli as well more than a sensitive to ceftriaxone 4-patient currently being treated Rocephin 2 g daily while inpatient and monitor clinical course closely Dictation was produced using [employer] dictation software. please excuse any grammatical, word or spelling errors. Time with Patient: Less than 30
[2023-12-01] MEDS: METOPROLOL TARTRATE 25 MG TAB PO STA (13:29)
[2023-12-01] MEDS: FUROSEMIDE 10 MG/ML 2 ML VIAL IV ONE (13:29)
--- NOTE | 2023-12-01 15:44 | P.PN ---
Subjective Progress Note Date: 11/30/23 This is an 82-year-old female admitted with complicated UTI, bacteremia status post cystoscopy with placement of a right double-J catheter. Blood culture reporting E. coli, urine culture reporting gram-negative, maintained on ceftriaxone. Tmax 101.5, WBC 8. Denies nausea vomiting or diarrhea. Denies ab dominal pain. Reports feeling minimally better. Denies chest pain, palpitations or shortness of breath. Maintaining O2 sats in the low 90s on 2 L nasal cannula. Elevated troponins, 0.175, 0.194, repeat EKG reported atrial fibrillation/flutter with heart rates in the 150s. Echo pending. Currently maintained on Cardizem and heparin drips. Objective - Vital Signs Vital signs: Vital Signs Temp 99.5 F 11/30/23 04:00 Pulse 112 H 11/30/23 08:27 Resp 18 11/30/23 04:00 BP 125/71 11/30/23 04:00 Pulse Ox 92 L 11/30/23 04:00 FiO2 Intake & Output 11/29/23 11/30/23 11/30/23 18:59 06:59 18:59 Intake Total 740 118 Balance 740 118 Weight 70.307 kg 75.4 kg Intake: IV 500 Oral 240 118 Other: Voiding Method Toilet # Voids 1 2 1 # Bowel Movements 1 1 - Exam GENERAL: alert and oriented x3, no acute distress. HEENT: Normocephalic, pupils are round and equally reacting to light. No conjunctival pallor. +MMM. CARDIOVASCULAR: S1 and S2 present. Irregular rate and rhythm ,no murmurs, rubs, or gallops. PULMONARY: Unlabored, equal air entry, clear to auscultation, no wheezing or crackles. ABDOMEN: Soft, nontender, nondistended, normoactive bowel sounds. No palpable organomegaly. EXTREMITIES: No cyanosis, clubbing, or pedal edema. NEUROLOGICAL: Gross neurological examination did not reveal any focal deficits. SKIN: No rashes noted, warm and dry. - Labs CBC & Chem 7: 12/01/23 05:58 11/28/23 20:43 Labs: Abnormal Lab Results - Last 24 Hours (Table) 11/29/23 11/29/23 11/30/23 Range/Units 16:20 23:45 10:47 Plt Count (150-450) k/uL Lymphocytes # (1.0-4.8) k/uL INR (<1.2) POC Glucose (mg/dL) 123 H (70-110) mg/dL Hemoglobin A1c 6.1 H (<=6.0) % Troponin I 0.194 H* (0.000-0.034) ng/mL Triglycerides (0.00-149.00) mg/dL HDL Cholesterol (40.00-60.00) mg/dL 11/30/23 11/30/23 11/30/23 Range/Units 10:47 10:47 10:47 Plt Count 45 L (150-450) k/uL Lymphocytes # 0.4 L (1.0-4.8) k/uL INR 1.2 H (<1.2) POC Glucose (mg/dL) (70-110) mg/dL Hemoglobin A1c (<=6.0) % Troponin I (0.000-0.034) ng/mL Triglycerides 153.00 H (0.00-149.00) mg/dL HDL Cholesterol 12.20 L (40.00-60.00) mg/dL Microbiology - Last 24 Hours (Table) 11/28/23 21:36 Blood Culture Gram Stain - Preliminary Blood Blood Culture - Preliminary Escherichia coli Molecular ID 11/28/23 23:00 Urine Culture - Preliminary Urine,Voided Gram Neg Bacilli Assessment and Plan Assessment: Sepsis present on admission secondary to complicated UTI, gram-negative bacilli and E. coli bacteremia, cultures finalizing Right ureteral calculus with obstruction, right pyelonephrosis status post cystoscopy, placement of double-J catheter right Acute hypoxic respiratory failure secondary to the above Acute CHF exacerbation, echo pending New onset atrial fibrillation Elevated troponins, NSTEMI type II, cardiology following Generalized weakness, mechanical fall Hemoglobin A1c 6.1 Plan: Continue on current medication regimen ,monitoring and symptomatic treatment. Cultures finalizing, IV antibiotics as per infectious disease. Pain management. Echo pending.antiarrhythmics and anticoagulation as per cardiology. PT/OT. Hemoglobin A1c 6.1. The impression and plan of care has been dictated as directed. : I performed a history and examination of this patient, discussed the same with the dictator. I agree with the dictator's note ,documented as a scribe. Any additional findings or plans will be noted.
--- NOTE | 2023-12-01 16:13 | P.PN ---
Subjective Progress Note Date: 12/01/23 11/30/2023 this is an 82-year-old female admitted with complicated UTI, bacteremia status post cystoscopy with placement of a right double-J catheter. Blood culture reporting E. coli, urine culture reporting gram-negative, maintained on ceftriaxone. Tmax 101.5, WBC 8. Denies nausea vomiting or diarrhea. Denies abdominal pain. Reports feeling minimally better. Denies chest pain, palpitations or shortness of breath. Maintaining O2 sats in the low 90s on 2 L nasal cannula. Elevated troponins, 0.175, 0.194, repeat EKG reported atrial fibrillation/flutter with heart rates in the 150s. Echo pending. Currently maintained on Cardizem and heparin drips. 12/01/2023 telemetry reporting fluctuating atrial fibrillation with heart rates as high as the 160s. Echo reporting left ventricular systolic function borderline normal, 50 to 55%, mild mitral and tricuspid regurgitation. Repeat EKG pending. Cardizem drip discontinued, beta-edu increased. Anticoagulation on hold, labs performed later in the morning yesterday reported decrease in platelets to 45. urine culture reporting E. coli, blood culture reporting E. coli, molecular D, maintained on ceftriaxone, as per ID. Tmax 101, WBC within normal limits. Up to bathroom with walker and PT, tolerated exertion well. Maintaining O2 sats in the 90s on 3 L nasal cannula. Objective - Vital Signs Vital signs: Vital Signs Temp 98.3 F 12/01/23 11:30 Pulse 81 12/01/23 14:10 Resp 16 12/01/23 14:10 BP 124/69 12/01/23 11:30 Pulse Ox 93 L 12/01/23 11:30 FiO2 Intake & Output 11/30/23 12/01/23 12/01/23 18:59 06:59 18:59 Intake Total 118 120 Balance 118 120 Weight 74.5 kg Intake: Oral 118 120 Other: Voiding Method Toilet Toilet Toilet # Voids 3 2 1 # Bowel Movements 2 - Exam GENERAL: alert and oriented x3, no acute distress. HEENT: Normocephalic, pupils are round and equal, Conjunctiva normal,+MMM. CARDIOVASCULAR: S1 and S2 present. Irregular rate and rhythm ,no murmurs, rubs, or gallops. PULMONARY: Unlabored, equal air entry, clear to auscultation, no wheezing or crackles. ABDOMEN: Soft, nontender, nondistended, normoactive bowel sounds. EXTREMITIES: No cyanosis, clubbing, or pedal edema. NEUROLOGICAL: Gross neurological examination did not reveal any focal deficits. SKIN: No rashes noted, warm and dry. Microbiology 11/28/23 21:36 Blood Blood Culture Gram Stain - Final 11/28/23 21:36 Blood Blood Culture - Final Escherichia coli Molecular ID 11/28/23 23:00 Urine,Voided Urine Culture - Final Escherichia coli - Labs CBC & Chem 7: 12/02/23 06:09 12/02/23 06:09 Labs: Abnormal Lab Results - Last 24 Hours (Table) 11/30/23 12/01/23 Range/Units 10:47 05:58 Plt Count 43 L (150-450) k/uL Lymphocytes # 0.5 L (1.0-4.8) k/uL Triglycerides 150.00 H (0.00-149.00) mg/dL HDL Cholesterol 11.80 L (40.00-60.00) mg/dL Microbiology - Last 24 Hours (Table) 11/28/23 21:36 Blood Culture Gram Stain - Final Blood Blood Culture - Final Escherichia coli Molecular ID 11/28/23 23:00 Urine Culture - Final Urine,Voided Escherichia coli Assessment and Plan Assessment: Sepsis present on admission secondary to complicated UTI and bacteremia with E. coli, sensitive to ceftriaxone Right ureteral calculus with obstruction, right pyelonephrosis status post cystoscopy, placement of double-J catheter right Acute hypoxic respiratory failure secondary to the above Acute CHF exacerbation, diastolic dysfunction New onset paroxysmal atrial fibrillation Acute on chronic thrombocytopenia Elevated troponins, NSTEMI type II, cardiology following Generalized weakness, mechanical fall Hemoglobin A1c 6.1 Plan: Continue on current medication regimen ,monitoring and symptomatic treatment. Beta-edu increased. anticoagulation on hold R/t thrombo ctyopenia. Hematology to be consulted. Close monitoring of coags with repeat labs ordered for a.m. IV antibiotics as per infectious disease. PT/OT. The impression and plan of care has been dictated as directed. : I performed a history and examination of this patient, discussed the same with the dictator. I agree with the dictator's note ,documented as a scribe. Any additional findings or plans will be noted.
[2023-12-01] MEDS: IBUPROFEN 400 MG TAB PO PRN (16:59)
--- NOTE | 2023-12-01 17:05 | P.PN ---
Subjective Progress Note Date: 12/01/23 HISTORY OF PRESENTING ILLNESS Patient is a 82-year-old female with PMH of hypertension, dyslipidemia. She reports that she has not had any prior cardiac history. She presented to the hospital because of 3 to 4 days of worsening generalized weakness and fall. Patient reports that she was trying to get out of the bed when she slipped from the edge and fell on the floor. She did not report losing consciousness. She denies hitting her head. She denies any lightheadedness dizziness before the event or after the event. She denies any symptoms of chest pain chest pressure. She is unable to tell me that she has been feeling more short of breath or not at home prior to this event. On admission to ER, her initial ECG shows sinus rhythm with frequent PACs. Repeat ECG shows atrial fibrillation with RVR with heart rates in 150s. She also had mild ST depressions in lateral leads with higher rates. Following this troponin was ordered which was elevated at 0.17, 0.194. Her chest x-ray does show mild pulmonary congestion REVIEW OF SYSTEMS 14 point review of system is negative except what is mentioned above in HPI. PHYSICAL EXAMINATION Vital signs reviewed. Head: Normocephalic. Eyes: Sclerae nonicteric. Neck: Brisk carotid upstroke, elevated jugular venous distention. Lungs: Mild crackles audible in bilateral lung mata. Heart: Regular pulses, S1-S2 audible, no significant murmurs appreciated Abdomen: Soft nontender, positive bowel sounds. Extremities: No edema, intact distal pulses. Neuro: Alert, oritented, no focal deficits. Detailed neuro exam was not performed. ASSESSMENT New onset atrial fibrillation. Currently paroxysmal [id number] score 5 NSTEMI type II Mild pulmonary congestion, likely CHF, EF unknown at this time Sepsis with UTI, gram-negative bacilli Mechanical fall Generalized weakness Thrombocytopenia HbA1c 6.1, NT-proBNP 5500, TSH 4.1 Echocardiogram showed preserved EF with no significant valvular dysfunction. PLAN Continue aspirin 1 mg, metoprolol 50 mg twice daily, Give 1 dose of Lasix 20 mg IV. Cannot do anticoagulation at this time due to thrombocytopenia. Would recommend outpatient heme-onc evaluation for thrombocytopenia workup. She would eventually need an outpatient stress test for her recent NSTEMI. At this time cardiology team will sign off. Please reconsult us in case of any question. Recommend outpatient follow-up with Dr. Herrera Objective - Vital Signs Vital signs: Vital Signs Temp 98.3 F 12/01/23 11:30 Pulse 81 12/01/23 14:10 Resp 16 12/01/23 14:10 BP 124/69 12/01/23 11:30 Pulse Ox 93 L 12/01/23 11:30 FiO2 Intake & Output 11/30/23 12/01/23 12/01/23 18:59 06:59 18:59 Intake Total 118 120 Balance 118 120 Weight 74.5 kg Intake: Oral 118 120 Other: Voiding Method Toilet Toilet Toilet # Voids 3 2 1 # Bowel Movements 2 - Labs CBC & Chem 7: 12/01/23 05:58 11/28/23 20:43 Labs: Abnormal Lab Results - Last 24 Hours (Table) 11/30/23 12/01/23 Range/Units 10:47 05:58 Plt Count 43 L (150-450) k/uL Lymphocytes # 0.5 L (1.0-4.8) k/uL Triglycerides 150.00 H (0.00-149.00) mg/dL HDL Cholesterol 11.80 L (40.00-60.00) mg/dL Microbiology - Last 24 Hours (Table) 11/28/23 21:36 Blood Culture Gram Stain - Final Blood Blood Culture - Final Escherichia coli Molecular ID 11/28/23 23:00 Urine Culture - Final Urine,Voided Escherichia coli
[2023-12-01] MEDS: METOPROLOL TARTRATE 50 MG TAB PO SCH (20:37)
[2023-12-02 07:55] LABS: African American GFR (CKD) >90 (>60 ml/min/1.73 sqM); Anion Gap 3 mmol/L; Blood Urea Nitrogen 22 mg/dL (7-17); Calcium 8.1 mg/dL (8.4-10.2); Carbon Dioxide 30 mmol/L (22-30); Chloride 107 mmol/L (98-107); Glucose 110 mg/dL (74-99); Magnesium 1.9 mg/dL (1.6-2.3); Non-African American GFR(CKD) 84 (>60 ml/min/1.73 sqM); Potassium 3.3 mmol/L (3.5-5.1); Sodium 140 mmol/L (137-145)
[2023-12-02 08:01] LABS: Basophils % (A) 0 %; Eosinophils % (A) 0 %; HCT 36.3 % (34.0-46.0); HGB 12.2 gm/dL (11.4-16.0); Lymphocytes # (A) 0.6 k/uL (1.0-4.8); Lymphocytes % (A) 8 %; MCH 30.2 pg (25.0-35.0); MCHC 33.5 g/dL (31.0-37.0); MCV 90.2 fL (80.0-100.0); Monocytes # (A) 0.7 k/uL (0-1.0); Monocytes % (A) 9 %; Neutrophils # (A) 6.7 k/uL (1.3-7.7); Neutrophils % (A) 81 %; RBC 4.03 m/uL (3.80-5.40); RDW 14.3 % (11.5-15.5); WBC 8.3 k/uL (3.8-10.6)
[2023-12-02 08:03] LABS: Platelet Count 57 k/uL (150-450)
[2023-12-02 08:26] LABS: Large Platelets Present
[2023-12-02] MEDS: POTASSIUM CHLORIDE ER 20 MEQ TAB.ER PO SCH (12:16)
--- NOTE | 2023-12-02 14:57 | P.CNPUL ---
History of Present Illness Consult date: 12/02/23 Requesting physician: Malik Serra Reason for consult: dyspnea, hypoxemia Chief complaint: Weakness, fall History of present illness: This is an 82-year-old female patient with a known history of hypertension, hyperlipidemia, osteoarthritis, lifelong non-smoker. She presented here to the emergency room back on 11/28/2023 after sustaining a fall secondary to weakness for several days prior to her arrival. No injury. Chest x-ray at that time revealed no acute pulmonary process. This with obstruction with urinary tract infection secondary to E. coli and right pyelonephritis. She did undergo cystoscopy with placement of a double-J catheter on the right on 11/29/2023. Blood cultures were positive for E. coli as well. Echocardiogram revealed preserved left ventricular systolic function with ejection fraction of 50 to 55%. No significant valvular abnormalities. A follow-up chest x-ray on 11/30/2023 revealed perihilar consolidations concerning for pneumonia. Small left pleural effusion. Still hypoxemic with oxygen at 4 L/min per nasal cannula. Temperature 101.1 today. She is hemodynamically stable. We are consulted today 12/02/2023. Currently seen sitting up in bed. Awake and alert in no acute distress. White count 8.3. Hemoglobin 12.2. Platelets 57,000. Sodium 140. Potassium 3.3. Bicarb 30. BUN 22. Creatinine 0.63. She is currently on ceftriaxone. Review of Systems REVIEW OF SYSTEMS: CONSTITUTIONAL: Positive for weakness and fall, denies any recent significant weight loss or weight gain. EYES: Denies change in vision. EARS, NOSE, MOUTH, THROAT: Denies headaches, denies sore throat. CARDIOVASCULAR: Denies chest pain, palpitations or syncopal episodes. RESPIRATORY: Positive for shortness of breath, cough, congestion no hemoptysis. GASTROINTESTINAL: Denies change in appetite, denies abdominal pain GENITOURINARY: Denies hematuria, denies infections. MUSKULOSKELETAL: Denies pain, denies swelling. INTEGUMENTARY: Denies rash, denies eczema. NEUROLOGICAL: Denies recent memory loss, no recent seizure activity. PSYCHIATRIC: Denies anxiety, denies depression. HEMATOLOGIC/LYMPHATIC: Denies anemia, denies enlarged lymph nodes. Past Medical History Past Medical History: Hyperlipidemia, Hypertension, Osteoarthritis (OA) History of Any Multi-Drug Resistant Organisms: None Reported Past Surgical History: Breast Surgery Additional Past Surgical History / Comment(s): GROWTH REMOVED- skin lesions. Benign right breast excisional biopsy Past Anesthesia/Blood Transfusion Reactions: No Reported Reaction Past Psychological History: No Psychological Hx Reported Smoking Status: Never smoker Past Alcohol Use History: Rare Past Drug Use History: None Reported Medications and Allergies Home Medications Medication Instructions Recorded Confirmed Type Simvastatin [Zocor] 20 mg PO HS 11/29/23 11/29/23 History lisinopriL [Zestril] 10 mg PO DAILY 11/29/23 11/29/23 History Allergies Allergy/AdvReac Type Severity Reaction Status Date / Time No Known Allergies Allergy Verified 11/29/23 09:37 Physical Exam Vitals: Vital Signs Temp Pulse Resp BP Pulse Ox 12/02/23 12:39 98.2 F 12/02/23 10:52 101.1 F H 75 24 134/69 93 L 12/02/23 09:15 110 H 20 12/02/23 07:16 99.0 F 79 20 150/77 93 L 12/02/23 04:00 98.2 F 75 16 147/71 94 L 12/02/23 01:24 71 18 12/01/23 23:59 97.9 F 71 18 122/66 92 L 12/01/23 23:55 89 L 12/01/23 20:00 97.6 F 68 16 147/72 94 L 12/01/23 16:50 97.9 F 72 16 120/67 91 L Intake and Output 12/01/23 12/02/23 12/02/23 22:59 06:59 14:59 Intake Total 540 118 Output Total 15 Balance 540 103 Intake: Oral 540 118 Output: Emesis 15 Other: Voiding Method Toilet Toilet Toilet # Voids 3 2 1 Weight 74.3 kg GENERAL EXAM: Alert, pleasant 82-year-old female, on 4 L nasal cannula, comfor table in no apparent distress. HEAD: Normocephalic. EYES: Normal reaction of pupils, equal size. NOSE: Clear with pink turbinates. THROAT: No erythema or exudates. NECK: No masses, no JVD. CHEST: No chest wall deformity. LUNGS: Equal air entry with few scattered rhonchi. CVS: S1 and S2 normal with no audible murmur, regular rhythm. ABDOMEN: No hepatosplenomegaly, normal bowel sounds, no guarding or rigidity. SPINE: No scoliosis or deformity SKIN: No rashes CENTRAL NERVOUS SYSTEM: No focal deficits, tone is normal in all 4 extremities. EXTREMITIES: There is no peripheral edema. No clubbing, no cyanosis. Peripheral pulses are intact. Results - Laboratory Findings CBC and BMP: 12/02/23 06:09 12/02/23 06:09 PT/INR, D-dimer PT 11.6 sec (10.0-12.5) 12/01/23 05:58 INR 1.1 (<1.2) 12/01/23 05:58 Abnormal lab findings: Abnormal Labs 11/28/23 11/28/23 11/28/23 20:43 21:14 23:00 Plt Count 75 L Lymphocytes # 0.2 L INR Potassium Chloride 108 H Carbon Dioxide 19 L BUN 24 H Glucose 159 H POC Glucose (mg/dL) Hemoglobin A1c Calcium Total Bilirubin 1.9 H AST 59 H ALT 47 H Troponin I Total Protein 6.2 L Triglycerides HDL Cholesterol Urine Appearance Cloudy H Urine Protein 1+ H Urine Ketones 1+ H Urine Blood Large H Ur Leukocyte Esterase Large H Urine RBC 10 H Urine WBC 92 H Urine Bacteria Many H 11/29/23 11/29/23 11/29/23 10:34 16:20 23:45 Plt Count Lymphocytes # INR Potassium Chloride Carbon Dioxide BUN Glucose POC Glucose (mg/dL) 123 H Hemoglobin A1c Calcium Total Bilirubin AST ALT Troponin I 0.175 H* 0.194 H* Total Protein Triglycerides HDL Cholesterol Urine Appearance Urine Protein Urine Ketones Urine Blood Ur Leukocyte Esterase Urine RBC Urine WBC Urine Bacteria 11/30/23 11/30/23 11/30/23 10:47 10:47 10:47 Plt Count Lymphocytes # INR Potassium Chloride Carbon Dioxide BUN Glucose POC Glucose (mg/dL) Hemoglobin A1c 6.1 H Calcium Total Bilirubin AST ALT Troponin I Total Protein Triglycerides 150.00 H 153.00 H HDL Cholesterol 11.80 L 12.20 L Urine Appearance Urine Protein Urine Ketones Urine Blood Ur Leukocyte Esterase Urine RBC Urine WBC Urine Bacteria 11/30/23 11/30/23 12/01/23 10:47 10:47 05:58 Plt Count 45 L 43 L Lymphocytes # 0.4 L 0.5 L INR 1.2 H Potassium Chloride Carbon Dioxide BUN Glucose POC Glucose (mg/dL) Hemoglobin A1c Calcium Total Bilirubin AST ALT Troponin I Total Protein Triglycerides HDL Cholesterol Urine Appearance Urine Protein Urine Ketones Urine Blood Ur Leukocyte Esterase Urine RBC Urine WBC Urine Bacteria 12/02/23 12/02/23 06:09 06:09 Plt Count 57 L Lymphocytes # 0.6 L INR Potassium 3.3 L Chloride Carbon Dioxide BUN 22 H Glucose 110 H POC Glucose (mg/dL) Hemoglobin A1c Calcium 8.1 L Total Bilirubin AST ALT Troponin I Total Protein Triglycerides HDL Cholesterol Urine Appearance Urine Protein Urine Ketones Urine Blood Ur Leukocyte Esterase Urine RBC Urine WBC Urine Bacteria - Diagnostic Findings Chest x-ray: image reviewed Assessment and Plan Assessment: Generalized weakness and fall secondary to acute urinary tract infection, sepsis Urinary tract infection secondary to E. coli Bacteremia secondary to E. coli Right renal calculus status post double-J stent catheter placement on 11/29/2023 Acute hypoxemic respiratory failure secondary to acute diastolic congestive heart failure versus possible pneumonia Lifelong non-smoker History of diastolic congestive heart failure New onset proximal atrial fibrillation, not on anticoagulation due to thrombocytopenia Acute on chronic thrombocytopenia Pretension Hyperlipidemia Plan: The patient was seen and evaluated Chest x-ray, labs and medications reviewed Suspect fluid volume overload Check a procalcitonin Continue ceftriaxone Diuretics per cardiology Titrate down the FiO2 as tolerated We will continue to follow and make further recommendations based on her clinical status I have personally seen and examined the patient, performed the documentation and the assessment and plan as written. Number of minutes spent on the visit: 20.
--- NOTE | 2023-12-02 18:27 | P.PN ---
Subjective Progress Note Date: 12/02/23 Principal diagnosis: Right ureteral calculus, UTI The patient underwent placement of a right ureteral stent on November 28. She remains afebrile. She reports persistent nausea. She denies dysuria and hematuria. Urine and blood cultures both show E. coli, sensitive to ceftriaxon e. Objective - Vital Signs Vital signs: Vital Signs Temp 99.0 F 12/02/23 07:16 Pulse 79 12/02/23 07:16 Resp 20 12/02/23 07:16 BP 150/77 12/02/23 07:16 Pulse Ox 93 L 12/02/23 07:16 FiO2 Intake & Output 12/01/23 12/02/23 12/02/23 18:59 06:59 18:59 Intake Total 540 Balance 540 Weight 74.3 kg Intake: Oral 540 Other: Voiding Method Toilet Toilet # Voids 3 2 - Constitutional General appearance: Present: average body habitus, cooperative, mild distress - Psychiatric Psychiatric: Present: A&O x's 3 - Labs CBC & Chem 7: 12/02/23 06:09 12/02/23 06:09 Labs: Abnormal Lab Results - Last 24 Hours (Table) 12/01/23 Range/Units 05:58 Plt Count 43 L (150-450) k/uL Lymphocytes # 0.5 L (1.0-4.8) k/uL Microbiology - Last 24 Hours (Table) 11/28/23 21:36 Blood Culture Gram Stain - Final Blood Blood Culture - Final Escherichia coli Molecular ID 11/28/23 23:00 Urine Culture - Final Urine,Voided Escherichia coli Assessment and Plan (1) UTI (urinary tract infection) Current Visit: Yes Status: Acute Code(s): N39.0 - URINARY TRACT INFECTION, SITE NOT SPECIFIED SNOMED Code(s): 94506509 (2) Ureteral stone Current Visit: Yes Status: Acute Code(s): N20.1 - CALCULUS OF URETER SNOMED Code(s): 71499646 Plan: - Continue Rocephin. - Patient will be discharged home on appropriate antibiotics. Arrangements will then be made for her to undergo elective cystoscopy, right ureteral stent removal, and ureteroscopic removal of the right ureteral calculus.
--- NOTE | 2023-12-02 18:32 | P.PN ---
Subjective Progress Note Date: 12/02/23 11/30/2023 this is an 82-year-old female admitted with complicated UTI, bacteremia status post cystoscopy with placement of a right double-J catheter. Blood culture reporting E. coli, urine culture reporting gram-negative, maintained on ceftriaxone. Tmax 101.5, WBC 8. Denies nausea vomiting or diarrhea. Denies abdominal pain. Reports feeling minimally better. Denies chest pain, palpitations or shortness of breath. Maintaining O2 sats in the low 90s on 2 L nasal cannula. Elevated troponins, 0.175, 0.194, repeat EKG reported atrial fibrillation/flutter with heart rates in the 150s. Echo pending. Currently maintained on Cardizem and heparin drips. 12/01/2023 telemetry reporting fluctuating atrial fibrillation with heart rates as high as the 160s. Echo reporting left ventricular systolic function borderline normal, 50 to 55%, mild mitral and tricuspid regurgitation. Repeat EKG pending. Cardizem drip discontinued, beta-edu increased. Anticoagulation on hold, labs performed later in the morning yesterday reported decrease in platelets to 45. urine culture reporting E. coli, blood culture reporting E. coli, molecular D, maintained on ceftriaxone, as per ID. Tmax 101, WBC within normal limits. Up to bathroom with walker and PT, tolerated exertion well. Maintaining O2 sats in the 90s on 3 L nasal cannula. 12/02/2023 maintained on ceftriaxone, Tmax 101.1, normal WBC. Requiring 4 L nasal cannula to maintain O2 sats in the 90s. Potassium 3.3, magnesium 1.9. Telemetry reporting sinus rhythm throughout the night. Remains off of anticoagulation secondary to thrombocytopenia, platelets increased to 57. Objective - Vital Signs Vital signs: Vital Signs Temp 98.2 F 12/02/23 12:39 Pulse 75 12/02/23 10:52 Resp 24 12/02/23 10:52 BP 134/69 12/02/23 10:52 Pulse Ox 93 L 12/02/23 10:52 FiO2 Intake & Output 12/01/23 12/02/23 12/02/23 18:59 06:59 18:59 Intake Total 540 118 Output Total 15 Balance 540 103 Weight 74.3 kg Intake: Oral 540 118 Output: Emesis 15 Other: Voiding Method Toilet Toilet Toilet # Voids 3 2 1 - Exam GENERAL: alert and oriented x3, sitting up in chair, no acute distress. HEENT: Normocephalic, pupils are round and equal, Conjunctiva normal,+MMM. CARDIOVASCULAR: S1 and S2 present. Irregular rate and rhythm ,no murmurs, rubs, or gallops. PULMONARY: Unlabored, equal air entry, essentially clear with occasional scattered rhonchi ABDOMEN: Soft, nontender, nondistended, normoactive bowel sounds. EXTREMITIES: No cyanosis, clubbing, or pedal edema. Positive DP pulses. NEUROLOGICAL: Gross neurological examination did not reveal any focal deficits. SKIN: No rashes noted, warm and dry. - Labs CBC & Chem 7: 12/02/23 06:09 12/02/23 06:09 Labs: Abnormal Lab Results - Last 24 Hours (Table) 12/02/23 12/02/23 12/02/23 Range/Units 06:09 06:09 14:24 Plt Count 57 L (150-450) k/uL Lymphocytes # 0.6 L (1.0-4.8) k/uL Fibrinogen 648 H (200-500) mg/dL Potassium 3.3 L (3.5-5.1) mmol/L BUN 22 H (7-17) mg/dL Glucose 110 H (74-99) mg/dL Calcium 8.1 L (8.4-10.2) mg/dL Assessment and Plan Assessment: Sepsis present on admission secondary to complicated UTI and bacteremia with E. coli, sensitive to ceftriaxone Right ureteral calculus with obstruction, right pyelonephrosis status post cystoscopy, placement of double-J catheter right Acute CHF exacerbation, diastolic dysfunction Possible pneumonia Acute hypoxic respiratory failure secondary to the above New onset paroxysmal atrial fibrillation Acute on chronic thrombocytopenia Elevated troponins, NSTEMI type II, cardiology following Generalized weakness, mechanical fall Hemoglobin A1c 6.1 Plan: Continue on current medication regimen ,monitoring and symptomatic treatment. Anticoagulation on hold R/t thromboctyopenia, hematology consult in place, recommendations pending. Worsening hypoxia, pulmonary consulted. Lasix IV push x 1 ordered for possible mild fluid volume overload. maintain IV antibiotics. Increase ambulation as tolerated. PT. close monitoring of coags, renal function and electrolytes with repeat labs ordered for a.m. The impression and plan of care has been dictated as directed. : I performed a history and examination of this patient, discussed the same with the dictator. I agree with the dictator's note ,documented as a scribe. Any additional findings or plans will be noted.
[2023-12-02] MEDS: FUROSEMIDE 10 MG/ML 2 ML VIAL IV ONE (19:12)
[2023-12-02 19:18] LABS: Hepatitis A Antibody IgM Nonreactive (Nonreactive); Hepatitis B Core IgM Nonreactive (Nonreactive); Hepatitis B Surface Antigen Nonreactive (Nonreactive); Hepatitis C IgG Antibody Nonreactive (Nonreactive)
[2023-12-02 19:24] LABS: Glucose,Whole Blood 126 mg/dL (70-110)
[2023-12-02 19:29] LABS: % Iron Saturation 8.21 (12.00-45.00)
[2023-12-02 20:32] LABS: Basophils # (A) 0.1 k/uL (0-0.2); Basophils % (A) 1 %; Eosinophils % (A) 0 %; HCT 33.3 % (34.0-46.0); Lymphocytes # (A) 0.6 k/uL (1.0-4.8); Lymphocytes % (A) 6 %; MCH 30.1 pg (25.0-35.0); MCHC 33.2 g/dL (31.0-37.0); MCV 90.6 fL (80.0-100.0); Monocytes # (A) 0.9 k/uL (0-1.0); Monocytes % (A) 9 %; Neutrophils # (A) 8.8 k/uL (1.3-7.7); Neutrophils % (A) 81 %; RBC 3.67 m/uL (3.80-5.40); RDW 14.4 % (11.5-15.5); WBC 10.8 k/uL (3.8-10.6)
--- NOTE | 2023-12-02 20:41 | P.CONS ---
History of Present Illness - Reason for Consult Consult date: 12/02/23 thrombocytopenia Requesting physician: Connie Jones - Chief Complaint weakness, fall - History of Present Illness Patient is an 82-year-old female who presented to the emergency room for weakness and a fall. Consult was placed for thrombocytopenia and new onset A-fib. During admission patient was noted to have fever, Tmax 101.5. Currently being treated for sepsis and UTI positive for E. coli. She also underwent right urethral stent with Dr. Jaime. Upon trending labs mild thrombocytopenia was first noted in 2014 and has been progressive since 2020. Yesterday platelets were at 43,000, platelets improved today at 57,000. WBC 8.3, Hgb 12.2. Patient denies history of hepatitis, alcohol abuse, and autoimmune disease. CT abdomen and pelvis showed hepatic steatosis. Review of Systems 10 point ROS is negative except as stated in the HPI Past Medical History Past Medical History: Hyperlipidemia, Hypertension, Osteoarthritis (OA) History of Any Multi-Drug Resistant Organisms: None Reported Past Surgical History: Breast Surgery Additional Past Surgical History / Comment(s): GROWTH REMOVED- skin lesions. Benign right breast excisional biopsy Past Anesthesia/Blood Transfusion Reactions: No Reported Reaction Past Psychological History: No Psychological Hx Reported Smoking Status: Never smoker Past Alcohol Use History: Rare Past Drug Use History: None Reported Medications and Allergies Home Medications Medication Instructions Recorded Confirmed Type Simvastatin [Zocor] 20 mg PO HS 11/29/23 11/29/23 History lisinopriL [Zestril] 10 mg PO DAILY 11/29/23 11/29/23 History Allergies Allergy/AdvReac Type Severity Reaction Status Date / Time No Known Allergies Allergy Verified 11/29/23 09:37 Physical Exam Vitals: Vital Signs Temp Pulse Resp BP Pulse Ox 12/02/23 12:39 98.2 F 12/02/23 10:52 101.1 F H 75 24 134/69 93 L 12/02/23 09:15 110 H 20 12/02/23 07:16 99.0 F 79 20 150/77 93 L 12/02/23 04:00 98.2 F 75 16 147/71 94 L 12/02/23 01:24 71 18 12/01/23 23:59 97.9 F 71 18 122/66 92 L 12/01/23 23:55 89 L 12/01/23 20:00 97.6 F 68 16 147/72 94 L 12/01/23 16:50 97.9 F 72 16 120/67 91 L 12/01/23 14:10 81 16 Intake and Output 12/01/23 12/02/23 12/02/23 22:59 06:59 14:59 Intake Total 540 Output Total 15 Balance 540 -15 Intake: Oral 540 Output: Emesis 15 Other: Voiding Method Toilet Toilet Toilet # Voids 3 2 1 Weight 74.3 kg - Constitutional General appearance: no acute distress - EENT Eyes: anicteric sclerae, EOMI ENT: hearing grossly normal - Respiratory Respiratory: bilateral: CTA - Cardiovascular Rhythm: regular - Gastrointestinal General gastrointestinal: soft, no tenderness - Integumentary Integumentary: no cyanotic, no jaundiced - Musculoskeletal Musculoskeletal: generalized weakness - Psychiatric Psychiatric: A&O x's 3 Results CBC & Chem 7: 12/02/23 06:09 12/02/23 06:09 Labs: Abnormal Lab Results - Last 24 Hours (Table) 12/02/23 12/02/23 Range/Units 06:09 06:09 Plt Count 57 L (150-450) k/uL Lymphocytes # 0.6 L (1.0-4.8) k/uL Potassium 3.3 L (3.5-5.1) mmol/L BUN 22 H (7-17) mg/dL Glucose 110 H (74-99) mg/dL Calcium 8.1 L (8.4-10.2) mg/dL Microbiology - Last 24 Hours (Table) 11/28/23 21:36 Blood Culture Gram Stain - Final Blood Blood Culture - Final Escherichia coli Molecular ID CT scan - abdomen: report reviewed CT scan - pelvis: report reviewed Assessment and Plan (1) Thrombocytopenia Current Visit: Yes Status: Acute Priority: Medium Code(s): D69.6 - THROMBOCYTOPENIA, UNSPECIFIED SNOMED Code(s): 094814428 (2) Fever Current Visit: Yes Status: Acute Priority: High Code(s): R50.9 - FEVER, UNSPECIFIED SNOMED Code(s): 133998568 (3) Sepsis Current Visit: Yes Status: Acute Priority: High Code(s): A41.9 - SEPSIS, UNSPECIFIED ORGANISM SNOMED Code(s): 63652944 (4) UTI (urinary tract infection) Current Visit: Yes Status: Acute Priority: High Code(s): N39.0 - URINARY TRACT INFECTION, SITE NOT SPECIFIED SNOMED Code(s): 24320892 (5) Ureteral stone Current Visit: Yes Status: Acute Priority: High Code(s): N20.1 - CALCULUS OF URETER SNOMED Code(s): 09834819 Plan: Sepsis, UTI, right uretheral obstruction: -Blood culture, urine culture positive for E. coli. Continues on IV abx -S/p right urethral stent with Dr. Jaime -Defer management to admitting and urology teams Thrombocytopenia: -Upon trending labs mild thrombocytopenia was first noted in 2014 and has been progressive since 2020. Patient denies history of hepatitis, alcohol abuse, and autoimmune disease. -Yesterday platelets were at 43,000, platelets improved today at 57,000. WBC 8.3, Hgb 12.2. Differential showing no significant abnormalities -PT 12.3, INR 1.2, PTT 26.8. TSH WNL -CT abdomen and pelvis showed hepatic steatosis -Will obtain anemia labs, fibrinogen, HIV and acute hepatitis panel -Acute on chronic thrombocytopenia likely secondary to fatty liver disease, superimposed by acute processes. Would expect counts to return to baseline as she acutely recovers -Anticoagulation ok, if plts > 50,000 -Continue to monitor CBC attests: I have performed H&P and developed impression and plan of care for patient, discussed with dictator. I agree with dictated note, documented as a scribe
[2023-12-02 20:59] LABS: Glucose,Whole Blood 154 mg/dL (70-110)
[2023-12-02 21:11] LABS: Platelet Count 61 k/uL (150-450)
[2023-12-02 21:45] LABS: HIV 2 AB Non-Reactive (Non-Reactive); HIV AB P24 Non-Reactive (Non-Reactive); HIV P24 AG Non-Reactive (Non-Reactive)
[2023-12-02] MEDS: METOCLOPRAMIDE 5 MG/ML 2 ML VIAL IVP PRN (21:49)
[2023-12-02] MEDS: PANTOPRAZOLE 40 MG/10 ML VIAL IVP SCH (21:49)
[2023-12-03 00:34] LABS: Basophils # (A) 0.1 k/uL (0-0.2); Basophils % (A) 1 %; Eosinophils % (A) 0 %; HGB 10.2 gm/dL (11.4-16.0); Lymphocytes # (A) 0.6 k/uL (1.0-4.8); Lymphocytes % (A) 6 %; MCH 30.6 pg (25.0-35.0); MCHC 35.1 g/dL (31.0-37.0); MCV 87.3 fL (80.0-100.0); Mean Platelet Volume 12.1; Monocytes # (A) 0.7 k/uL (0-1.0); Monocytes % (A) 6 %; Neutrophils # (A) 9.3 k/uL (1.3-7.7); Neutrophils % (A) 84 %; RBC 3.33 m/uL (3.80-5.40); RDW 14.7 % (11.5-15.5); WBC 11.1 k/uL (3.8-10.6)
[2023-12-03 00:42] LABS: Platelet Count 57 k/uL (150-450)
[2023-12-03 05:33] LABS: Basophils # (A) 0.1 k/uL (0-0.2); Basophils % (A) 1 %; Eosinophils % (A) 0 %; HGB 9.6 gm/dL (11.4-16.0); Lymphocytes # (A) 0.8 k/uL (1.0-4.8); Lymphocytes % (A) 7 %; MCH 30.3 pg (25.0-35.0); MCHC 34.4 g/dL (31.0-37.0); MCV 88.1 fL (80.0-100.0); Mean Platelet Volume 13.2; Monocytes # (A) 0.7 k/uL (0-1.0); Monocytes % (A) 6 %; Neutrophils # (A) 9.4 k/uL (1.3-7.7); Neutrophils % (A) 81 %; RBC 3.18 m/uL (3.80-5.40); RDW 14.8 % (11.5-15.5); WBC 11.6 k/uL (3.8-10.6)
[2023-12-03 05:39] LABS: Platelet Count 65 k/uL (150-450)
[2023-12-03 05:43] LABS: African American GFR (CKD) >90 (>60 ml/min/1.73 sqM); Anion Gap 2 mmol/L; Blood Urea Nitrogen 26 mg/dL (7-17); Calcium 8.2 mg/dL (8.4-10.2); Carbon Dioxide 29 mmol/L (22-30); Chloride 110 mmol/L (98-107); Glucose 132 mg/dL (74-99); Non-African American GFR(CKD) 87 (>60 ml/min/1.73 sqM); Potassium 3.5 mmol/L (3.5-5.1); Sodium 141 mmol/L (137-145)
[2023-12-03] MEDS ORDERED: Potassium Replacement Protocol 1 EACH MISC MISCELLANE PRN (06:14)
[2023-12-03] MEDS: POTASSIUM CHLORIDE 10 MEQ in WATER FOR INJECTION 1 100ML.BAG IVPB SCH (06:42)
--- NOTE | 2023-12-03 07:51 | XR ---
EXAMINATION TYPE: XR chest 1V portable DATE OF EXAM: 12/03/2023 HISTORY: Shortness of breath. COMPARISON: 11/29/2023 TECHNIQUE: Single view of the chest is submitted. FINDINGS: Demonstrated are scattered senescent parenchymal change. Upper lobe patchy infiltrates right greater than left remain unchanged. The heart is stable. Hilar and mediastinal structures are within normal limits. Degenerative changes are seen of the dorsal spine. IMPRESSION: 1. Upper lobe patchy infiltrates right greater than left remain unchanged. [facility], , 12/03/2023 7:49 AM
[2023-12-03 08:45] LABS: African American GFR (CKD) >90 (>60 ml/min/1.73 sqM); Anion Gap 3 mmol/L; Blood Urea Nitrogen 27 mg/dL (7-17); Calcium 8.2 mg/dL (8.4-10.2); Carbon Dioxide 26 mmol/L (22-30); Chloride 111 mmol/L (98-107); Glucose 134 mg/dL (74-99); Non-African American GFR(CKD) 88 (>60 ml/min/1.73 sqM); Potassium 3.5 mmol/L (3.5-5.1); Sodium 140 mmol/L (137-145)
--- NOTE | 2023-12-03 09:15 | P.PN ---
Subjective Progress Note Date: 12/02/23 Principal diagnosis: Reason for follow-up is complicated UTI and bacteremia Patient is a 82-year-old female with a past medical history significant for hypertension hyperlipidemia osteoarthritis presenting to the hospital after pending the patient did have a fall patient has been complaining of feeling very weak and has been diagnosed with sepsis secondary to complicated UTI in this patient who is status post cystoscopy with right ureteral stent placement and the blood culture came positive with E. coli. On today's evaluation that is 12/02/2023, Patient is afebrile patient is currently on room air and denies having any shortness of breath, the patient denies any chest pain or cough, the patient denies any nausea vomiting did not have any abdominal pain and no diarrhea, mention feeling better no new symptoms. Patient white count is 11.1 blood and urine with E. coli Objective - Vital Signs Vital signs: Vital Signs Temp 98.2 F 12/02/23 12:39 Pulse 75 12/02/23 10:52 Resp 24 12/02/23 10:52 BP 134/69 12/02/23 10:52 Pulse Ox 93 L 12/02/23 10:52 FiO2 Intake & Output 12/01/23 12/02/23 12/02/23 18:59 06:59 18:59 Intake Total 540 Output Total 15 Balance 540 -15 Weight 74.3 kg Intake: Oral 540 Output: Emesis 15 Other: Voiding Method Toilet Toilet Toilet # Voids 3 2 1 - Exam GENERAL DESCRIPTION: An elderly female lying in bed in no distress RESPIRATORY SYSTEM: Unlabored breathing , decreased breath sounds at bases HEART: S1 S2 regular rate and rhythm , ABDOMEN: Soft , no tenderness EXTREMITIES: No edema feet - Labs CBC & Chem 7: 12/03/23 05:10 12/03/23 05:10 Labs: Abnormal Lab Results - Last 24 Hours (Table) 12/02/23 12/02/23 Range/Units 06:09 06:09 Plt Count 57 L (150-450) k/uL Lymphocytes # 0.6 L (1.0-4.8) k/uL Potassium 3.3 L (3.5-5.1) mmol/L BUN 22 H (7-17) mg/dL Glucose 110 H (74-99) mg/dL Calcium 8.1 L (8.4-10.2) mg/dL Microbiology - Last 24 Hours (Table) 11/28/23 21:36 Blood Culture Gram Stain - Final Blood Blood Culture - Final Escherichia coli Molecular ID Assessment and Plan (1) Sepsis Current Visit: Yes Status: Acute Priority: High Code(s): A41.9 - SEPSIS, UNSPECIFIED ORGANISM SNOMED Code(s): 06656388 (2) UTI (urinary tract infection) Current Visit: Yes Status: Acute Priority: High Code(s): N39.0 - URINARY TRACT INFECTION, SITE NOT SPECIFIED SNOMED Code(s): 72084587 Plan: 1patient presented to hospital with sepsis in this patient who did have fever tachycardia meeting currently for SIRS source likely urinary patient did have lo wer abdominal pain positive UA and left-sided ureteral stone concerning for possible complicated UTI likely from enteric gram-negative pathogen 2-patient is status post cystoscopy and right ureteral stent placement by urology 3 blood culture as well as urine culture is growing E. coli both the sensitive to ceftriaxone 4-patient to continue with Rocephin 2 g daily while inpatient and monitor clini reggie course closely Dictation was produced using [employer] dictation software. please excuse any grammatical, word or spelling errors. Time with Patient: Less than 30
--- NOTE | 2023-12-03 10:14 | P.PN ---
Subjective Progress Note Date: 12/03/23 Principal diagnosis: Right ureteral calculus, UTI The patient underwent placement of a right ureteral stent on November 28. She remains afebrile. She was transferred to the ICU for tachycardia, which has resolved. She reports persistent nausea. She denies dysuria and hematuria. Urine and blood cultures both show E. coli, sensitive to ceftriaxone. Objective - Vital Signs Vital signs: Vital Signs Temp 98.2 F 12/03/23 04:00 Pulse 74 12/03/23 07:00 Resp 24 12/03/23 07:00 BP 112/71 12/03/23 07:00 Pulse Ox 96 12/03/23 07:00 FiO2 Intake & Output 12/02/23 12/03/23 12/03/23 18:59 06:59 18:59 Intake Total 118 Output Total 15 200 Balance 103 -200 Weight 74.9 kg Intake: Oral 118 Output: Urine 200 Emesis 15 Other: Voiding Method Toilet Bedpan # Voids 1 1 # Bowel Movements 1 - Constitutional General appearance: Present: average body habitus, cooperative, no acute distress - Psychiatric Psychiatric: Present: A&O x's 3 - Labs CBC & Chem 7: 12/03/23 05:10 12/03/23 05:10 Labs: Abnormal Lab Results - Last 24 Hours (Table) 12/02/23 12/02/23 12/02/23 Range/Units 06:09 14:24 19:23 WBC (3.8-10.6) k/uL RBC (3.80-5.40) m/uL Hgb (11.4-16.0) gm/dL Hct (34.0-46.0) % Plt Count (150-450) k/uL Neutrophils # (1.3-7.7) k/uL Lymphocytes # (1.0-4.8) k/uL Fibrinogen 648 H (200-500) mg/dL Chloride (98-107) mmol/L BUN (7-17) mg/dL Glucose (74-99) mg/dL POC Glucose (mg/dL) 126 H (70-110) mg/dL Calcium (8.4-10.2) mg/dL Iron 17 L (50-170) UG/DL TIBC 207 L (228-460) UG/DL % Saturation 8.21 L (12.00-45.00) Transferrin 148.0 L (204.0-354.0) mg/dL Ferritin 398.0 H (10.0-291.0) ng/mL Stool Occult Blood (Negative) 12/02/23 12/02/23 12/02/23 Range/Units 20:03 20:11 20:58 WBC 10.8 H (3.8-10.6) k/uL RBC 3.67 L (3.80-5.40) m/uL Hgb 11.0 L (11.4-16.0) gm/dL Hct 33.3 L (34.0-46.0) % Plt Count 61 L (150-450) k/uL Neutrophils # 8.8 H (1.3-7.7) k/uL Lymphocytes # 0.6 L (1.0-4.8) k/uL Fibrinogen (200-500) mg/dL Chloride (98-107) mmol/L BUN (7-17) mg/dL Glucose (74-99) mg/dL POC Glucose (mg/dL) 154 H (70-110) mg/dL Calcium (8.4-10.2) mg/dL Iron (50-170) UG/DL TIBC (228-460) UG/DL % Saturation (12.00-45.00) Transferrin (204.0-354.0) mg/dL Ferritin (10.0-291.0) ng/mL Stool Occult Blood Positive H (Negative) 12/03/23 12/03/23 12/03/23 Range/Units 00:20 05:10 05:10 WBC 11.1 H 11.6 H (3.8-10.6) k/uL RBC 3.33 L 3.18 L (3.80-5.40) m/uL Hgb 10.2 L 9.6 L (11.4-16.0) gm/dL Hct 29.0 L 28.0 L (34.0-46.0) % Plt Count 57 L 65 L (150-450) k/uL Neutrophils # 9.3 H 9.4 H (1.3-7.7) k/uL Lymphocytes # 0.6 L 0.8 L (1.0-4.8) k/uL Fibrinogen (200-500) mg/dL Chloride 110 H (98-107) mmol/L BUN 26 H (7-17) mg/dL Glucose 132 H (74-99) mg/dL POC Glucose (mg/dL) (70-110) mg/dL Calcium 8.2 L (8.4-10.2) mg/dL Iron (50-170) UG/DL TIBC (228-460) UG/DL % Saturation (12.00-45.00) Transferrin (204.0-354.0) mg/dL Ferritin (10.0-291.0) ng/mL Stool Occult Blood (Negative) Assessment and Plan (1) UTI (urinary tract infection) Current Visit: Yes Status: Acute Priority: High Code(s): N39.0 - URINARY TRACT INFECTION, SITE NOT SPECIFIED SNOMED Code(s): 96574158 (2) Ureteral stone Current Visit: Yes Status: Acute Priority: High Code(s): N20.1 - CALCULUS OF URETER SNOMED Code(s): 44727151 Plan: - Continue Rocephin. - Patient will be discharged home on appropriate antibiotics. Arrangements will then be made for her to undergo elective cystoscopy, right ureteral stent removal, and ureteroscopic removal of the right ureteral calculus.
--- NOTE | 2023-12-03 12:08 | P.PN ---
Subjective Progress Note Date: 12/03/23 This is an 82-year-old female patient with a known history of hypertension, hyperlipidemia, osteoarthritis, lifelong non-smoker. She presented here to the emergency room back on 11/28/2023 after sustaining a fall secondary to weakness for several days prior to her arrival. No injury. Chest x-ray at that time revealed no acute pulmonary process. This with obstruction with urinary tract infection secondary to E. coli and right pyelonephritis. She did undergo cystoscopy with placement of a double-J catheter on the right on 11/29/2023. Blood cultures were positive for E. coli as well. Echocardiogram revealed preserved left ventricular systolic function with ejection fraction of 50 to 55%. No significant valvular abnormalities. A follow-up chest x-ray on 11/30/2023 revealed perihilar consolidations concerning for pneumonia. Small left pleural effusion. Still hypoxemic with oxygen at 4 L/min per nasal cannula. Temperature 101.1 today. She is hemodynamically stable. We are consulted today 12/02/2023. Currently seen sitting up in bed. Awake and alert in no acute distress. White count 8.3. Hemoglobin 12.2. Platelets 57,000. Sodium 140. Potassium 3.3. Bicarb 30. BUN 22. Creatinine 0.63. She is currently on ceftriaxone. The patient is seen today December 03, 2023 in follow-up in the intensive care unit. She was transferred here due to episodes of GI bleeding, atrial fibril lation, hypotension. Nightly, she is sitting up in bed. Awake and alert in no acute distress. Maintaining O2 saturations in the 90s on 2 L/min per nasal cannula. She is afebrile. Hemodynamically stable. She did have a bloody bowel movement again this morning. Urine cultures positive for E. coli. Blood cultures positive for E. coli. White count 11.6. Hemoglobin 9.6. Platelets 65,000. Sodium 140. Potassium 3.5. Bicarb 26. BUN 27. Creatinine 0.56. Glucose 134. She remains on ceftriaxone. Chest x-ray shows upper patchy infiltrates on the right greater than left. Unchanged. Objective - Vital Signs Vital signs: Vital Signs Temp 98.0 F 12/03/23 08:00 Pulse 77 12/03/23 10:00 Resp 16 12/03/23 10:00 BP 131/74 12/03/23 10:00 Pulse Ox 94 L 12/03/23 10:00 FiO2 Intake & Output 12/02/23 12/03/23 12/03/23 18:59 06:59 18:59 Intake Total 118 250 Output Total 15 200 250 Balance 103 -200 0 Weight 74.9 kg Intake: IV 250 Potassium Chloride 10 meq 200 In Water For Injection 1 100ml.bag @ 100 mls/hr IVPB Q1HR [facility] Rx#: [id number] cefTRIAXone 2 gm In 50 Sodium Chloride 0.9% 50 ml @ 100 mls/hr IVPB Q24HR [facility] Rx#:[id number] Oral 118 Output: Urine 200 250 Emesis 15 Other: Voiding Method Toilet Bedpan Bedpan # Voids 1 1 1 # Bowel Movements 1 1 - Exam GENERAL EXAM: Alert, 82-year-old female, on 2 L nasal cannula, in no apparent distress. HEAD: Normocephalic. EYES: Normal reaction of pupils, equal size. NOSE: Clear with pink turbinates. THROAT: No erythema or exudates. NECK: No masses, no JVD. CHEST: No chest wall deformity. LUNGS: Equal air entry with few scattered rhonchi. CVS: S1 and S2 normal with no audible murmur, regular rhythm. ABDOMEN: No hepatosplenomegaly, normal bowel sounds, no guarding or rigidity. SPINE: No scoliosis or deformity SKIN: No rashes CENTRAL NERVOUS SYSTEM: No focal deficits, tone is normal in all 4 extremities. EXTREMITIES: There is no peripheral edema. No clubbing, no cyanosis. Peripheral pulses are intact. - Labs CBC & Chem 7: 12/03/23 05:10 12/03/23 05:10 Labs: Abnormal Lab Results - Last 24 Hours (Table) 12/02/23 12/02/23 12/02/23 Range/Units 06:09 14:24 19:23 WBC (3.8-10.6) k/uL RBC (3.80-5.40) m/uL Hgb (11.4-16.0) gm/dL Hct (34.0-46.0) % Plt Count (150-450) k/uL Neutrophils # (1.3-7.7) k/uL Lymphocytes # (1.0-4.8) k/uL Fibrinogen 648 H (200-500) mg/dL Chloride (98-107) mmol/L BUN (7-17) mg/dL Glucose (74-99) mg/dL POC Glucose (mg/dL) 126 H (70-110) mg/dL Calcium (8.4-10.2) mg/dL Iron 17 L (50-170) UG/DL TIBC 207 L (228-460) UG/DL % Saturation 8.21 L (12.00-45.00) Transferrin 148.0 L (204.0-354.0) mg/dL Ferritin 398.0 H (10.0-291.0) ng/mL Stool Occult Blood (Negative) 12/02/23 12/02/23 12/02/23 Range/Units 20:03 20:11 20:58 WBC 10.8 H (3.8-10.6) k/uL RBC 3.67 L (3.80-5.40) m/uL Hgb 11.0 L (11.4-16.0) gm/dL Hct 33.3 L (34.0-46.0) % Plt Count 61 L (150-450) k/uL Neutrophils # 8.8 H (1.3-7.7) k/uL Lymphocytes # 0.6 L (1.0-4.8) k/uL Fibrinogen (200-500) mg/dL Chloride (98-107) mmol/L BUN (7-17) mg/dL Glucose (74-99) mg/dL POC Glucose (mg/dL) 154 H (70-110) mg/dL Calcium (8.4-10.2) mg/dL Iron (50-170) UG/DL TIBC (228-460) UG/DL % Saturation (12.00-45.00) Transferrin (204.0-354.0) mg/dL Ferritin (10.0-291.0) ng/mL Stool Occult Blood Positive H (Negative) 12/03/23 12/03/23 12/03/23 Range/Units 00:20 05:10 05:10 WBC 11.1 H 11.6 H (3.8-10.6) k/uL RBC 3.33 L 3.18 L (3.80-5.40) m/uL Hgb 10.2 L 9.6 L (11.4-16.0) gm/dL Hct 29.0 L 28.0 L (34.0-46.0) % Plt Count 57 L 65 L (150-450) k/uL Neutrophils # 9.3 H 9.4 H (1.3-7.7) k/uL Lymphocytes # 0.6 L 0.8 L (1.0-4.8) k/uL Fibrinogen (200-500) mg/dL Chloride 110 H (98-107) mmol/L BUN 26 H (7-17) mg/dL Glucose 132 H (74-99) mg/dL POC Glucose (mg/dL) (70-110) mg/dL Calcium 8.2 L (8.4-10.2) mg/dL Iron (50-170) UG/DL TIBC (228-460) UG/DL % Saturation (12.00-45.00) Transferrin (204.0-354.0) mg/dL Ferritin (10.0-291.0) ng/mL Stool Occult Blood (Negative) 12/03/23 Range/Units 05:10 WBC (3.8-10.6) k/uL RBC (3.80-5.40) m/uL Hgb (11.4-16.0) gm/dL Hct (34.0-46.0) % Plt Count (150-450) k/uL Neutrophils # (1.3-7.7) k/uL Lymphocytes # (1.0-4.8) k/uL Fibrinogen (200-500) mg/dL Chloride 111 H (98-107) mmol/L BUN 27 H (7-17) mg/dL Glucose 134 H (74-99) mg/dL POC Glucose (mg/dL) (70-110) mg/dL Calcium 8.2 L (8.4-10.2) mg/dL Iron (50-170) UG/DL TIBC (228-460) UG/DL % Saturation (12.00-45.00) Transferrin (204.0-354.0) mg/dL Ferritin (10.0-291.0) ng/mL Stool Occult Blood (Negative) Assessment and Plan Assessment: Generalized weakness and fall secondary to acute urinary tract infection, sepsis Urinary tract infection secondary to E. coli Bacteremia secondary to E. coli Right renal calculus status post double-J stent catheter placement on 11/29/2023 Acute hypoxemic respiratory failure secondary to acute diastolic congestive heart failure versus possible pneumonia Acute GI bleed New onset proximal atrial fibrillation, not on anticoagulation due to thrombocytopenia Acute on chronic thrombocytopenia Lifelong non-smoker History of diastolic congestive heart failure Hypertension Hyperlipidemia Plan: The patient was seen and evaluated Chest x-ray, labs and medications reviewed Procalcitonin pending Continue ceftriaxone GI consult Continue to monitor closely in the intensive care unit I have personally seen and examined the patient, performed the documentation and the assessment and plan as written. Number of minutes spent on the visit: 10.
--- NOTE | 2023-12-03 12:29 | P.PN ---
Subjective Progress Note Date: 12/03/23 Patient seen in ICU today. Was transferred to unit after having large tarry BM. Reporting jeana blood in stool this morning. GI has been consulted, plan is for endoscopic evaluation. Denies abd pain, having int nausea. Hgb 9.6, plt 65,000 Objective - Vital Signs Vital signs: Vital Signs Temp 98.0 F 12/03/23 08:00 Pulse 77 12/03/23 10:00 Resp 16 12/03/23 10:00 BP 131/74 12/03/23 10:00 Pulse Ox 94 L 12/03/23 10:00 FiO2 Intake & Output 12/02/23 12/03/23 12/03/23 18:59 06:59 18:59 Intake Total 118 250 Output Total 15 200 250 Balance 103 -200 0 Weight 74.9 kg Intake: IV 250 Potassium Chloride 10 meq 200 In Water For Injection 1 100ml.bag @ 100 mls/hr IVPB Q1HR [facility] Rx#: [id number] cefTRIAXone 2 gm In 50 Sodium Chloride 0.9% 50 ml @ 100 mls/hr IVPB Q24HR [facility] Rx#:[id number] Oral 118 Output: Urine 200 250 Emesis 15 Other: Voiding Method Toilet Bedpan Bedpan # Voids 1 1 1 # Bowel Movements 1 1 - Constitutional General appearance: Present: average body habitus, no acute distress - EENT ENT: Present: hearing grossly normal - Respiratory Details: breathing is even and unlabored - Cardiovascular Details: skin warm and dry - Gastrointestinal General gastrointestinal: Present: soft. Absent: tenderness - Integumentary Integumentary: Absent: cyanotic - Musculoskeletal Musculoskeletal: Present: generalized weakness - Psychiatric Psychiatric: Present: A&O x's 3 - Labs CBC & Chem 7: 12/03/23 05:10 12/03/23 05:10 Labs: Abnormal Lab Results - Last 24 Hours (Table) 12/02/23 12/02/23 12/02/23 Range/Units 06:09 14:24 19:23 WBC (3.8-10.6) k/uL RBC (3.80-5.40) m/uL Hgb (11.4-16.0) gm/dL Hct (34.0-46.0) % Plt Count (150-450) k/uL Neutrophils # (1.3-7.7) k/uL Lymphocytes # (1.0-4.8) k/uL Fibrinogen 648 H (200-500) mg/dL Chloride (98-107) mmol/L BUN (7-17) mg/dL Glucose (74-99) mg/dL POC Glucose (mg/dL) 126 H (70-110) mg/dL Calcium (8.4-10.2) mg/dL Iron 17 L (50-170) UG/DL TIBC 207 L (228-460) UG/DL % Saturation 8.21 L (12.00-45.00) Transferrin 148.0 L (204.0-354.0) mg/dL Ferritin 398.0 H (10.0-291.0) ng/mL Stool Occult Blood (Negative) 12/02/23 12/02/23 12/02/23 Range/Units 20:03 20:11 20:58 WBC 10.8 H (3.8-10.6) k/uL RBC 3.67 L (3.80-5.40) m/uL Hgb 11.0 L (11.4-16.0) gm/dL Hct 33.3 L (34.0-46.0) % Plt Count 61 L (150-450) k/uL Neutrophils # 8.8 H (1.3-7.7) k/uL Lymphocytes # 0.6 L (1.0-4.8) k/uL Fibrinogen (200-500) mg/dL Chloride (98-107) mmol/L BUN (7-17) mg/dL Glucose (74-99) mg/dL POC Glucose (mg/dL) 154 H (70-110) mg/dL Calcium (8.4-10.2) mg/dL Iron (50-170) UG/DL TIBC (228-460) UG/DL % Saturation (12.00-45.00) Transferrin (204.0-354.0) mg/dL Ferritin (10.0-291.0) ng/mL Stool Occult Blood Positive H (Negative) 12/03/23 12/03/23 12/03/23 Range/Units 00:20 05:10 05:10 WBC 11.1 H 11.6 H (3.8-10.6) k/uL RBC 3.33 L 3.18 L (3.80-5.40) m/uL Hgb 10.2 L 9.6 L (11.4-16.0) gm/dL Hct 29.0 L 28.0 L (34.0-46.0) % Plt Count 57 L 65 L (150-450) k/uL Neutrophils # 9.3 H 9.4 H (1.3-7.7) k/uL Lymphocytes # 0.6 L 0.8 L (1.0-4.8) k/uL Fibrinogen (200-500) mg/dL Chloride 110 H (98-107) mmol/L BUN 26 H (7-17) mg/dL Glucose 132 H (74-99) mg/dL POC Glucose (mg/dL) (70-110) mg/dL Calcium 8.2 L (8.4-10.2) mg/dL Iron (50-170) UG/DL TIBC (228-460) UG/DL % Saturation (12.00-45.00) Transferrin (204.0-354.0) mg/dL Ferritin (10.0-291.0) ng/mL Stool Occult Blood (Negative) 12/03/23 Range/Units 05:10 WBC (3.8-10.6) k/uL RBC (3.80-5.40) m/uL Hgb (11.4-16.0) gm/dL Hct (34.0-46.0) % Plt Count (150-450) k/uL Neutrophils # (1.3-7.7) k/uL Lymphocytes # (1.0-4.8) k/uL Fibrinogen (200-500) mg/dL Chloride 111 H (98-107) mmol/L BUN 27 H (7-17) mg/dL Glucose 134 H (74-99) mg/dL POC Glucose (mg/dL) (70-110) mg/dL Calcium 8.2 L (8.4-10.2) mg/dL Iron (50-170) UG/DL TIBC (228-460) UG/DL % Saturation (12.00-45.00) Transferrin (204.0-354.0) mg/dL Ferritin (10.0-291.0) ng/mL Stool Occult Blood (Negative) Assessment and Plan (1) Thrombocytopenia Current Visit: Yes Status: Acute Priority: Medium Code(s): D69.6 - THROMBOCYTOPENIA, UNSPECIFIED SNOMED Code(s): 514148790 (2) Fever Current Visit: Yes Status: Acute Priority: High Code(s): R50.9 - FEVER, UNSPECIFIED SNOMED Code(s): 155336038 (3) Sepsis Current Visit: Yes Status: Acute Priority: High Code(s): A41.9 - SEPSIS, UNSPECIFIED ORGANISM SNOMED Code(s): 17267472 (4) UTI (urinary tract infection) Current Visit: Yes Status: Acute Priority: High Code(s): N39.0 - URINARY TRACT INFECTION, SITE NOT SPECIFIED SNOMED Code(s): 04042109 (5) Ureteral stone Current Visit: Yes Status: Acute Priority: High Code(s): N20.1 - CALCULUS OF URETER SNOMED Code(s): 61797380 (6) GI bleed Current Visit: Yes Status: Acute Priority: High Code(s): K92.2 - GASTROINTESTINAL HEMORRHAGE, UNSPECIFIED SNOMED Code(s): 78057845 (7) Anemia Current Visit: Yes Status: Acute Priority: Medium Code(s): D64.9 - ANEMIA, UNSPECIFIED SNOMED Code(s): 488589245 Plan: Sepsis, UTI, right uretheral obstruction: -Blood culture, urine culture positive for E. coli. Continues on IV abx -S/p right urethral stent with Dr. Jaime -Defer management to admitting and urology teams GI bleed: Had large black tarry stool last night. Having jeana blood in stool this morning -Hgb 9.6 today from 11.0 yesterday -Anemia labs consistent with anemia of inflammation -GI consulted, plans for endoscopic evaluation -Recommend holding anticoagulation/NSAIDs until GI bleed resolved Thrombocytopenia: -Upon trending labs mild thrombocytopenia was first noted in 2014 and has been progressive since 2020. Patient denies history of hepatitis, alcohol abuse, and autoimmune disease. -Yesterday platelets were at 43,000, platelets improved today at 57,000. WBC 8.3, Hgb 12.2. Differential showing no significant abnormalities -PT 12.3, INR 1.2, PTT 26.8. TSH WNL -CT abdomen and pelvis showed hepatic steatosis -Will obtain anemia labs, fibrinogen, HIV and acute hepatitis panel -DIC labs negative. HIV and hep panel negative. No nutritional deficiencies noted, folate pending -Acute on chronic thrombocytopenia likely secondary to fatty liver disease, superimposed by acute processes. Would expect counts to return to baseline as she acutely recovers -Due to acute GI bleed, hold anticoagulation until resolved -Continue to monitor CBC attests: I have performed H&P and developed impression and plan of care for patient, discussed with dictator. I agree with dictated note, documented as a scribe
[2023-12-03 12:32] LABS: Basophils # (A) 0.1 k/uL (0-0.2); Basophils % (A) 1 %; Eosinophils % (A) 0 %; HCT 29.9 % (34.0-46.0); HGB 10.4 gm/dL (11.4-16.0); Lymphocytes # (A) 0.9 k/uL (1.0-4.8); Lymphocytes % (A) 6 %; MCH 30.5 pg (25.0-35.0); MCHC 34.6 g/dL (31.0-37.0); MCV 88.1 fL (80.0-100.0); Mean Platelet Volume 12.6; Monocytes # (A) 0.9 k/uL (0-1.0); Monocytes % (A) 6 %; Neutrophils # (A) 12.6 k/uL (1.3-7.7); Neutrophils % (A) 84 %; RBC 3.39 m/uL (3.80-5.40); RDW 14.8 % (11.5-15.5)
--- NOTE | 2023-12-03 12:32 | P.CONS ---
History of Present Illness - Reason for Consult Consult date: 12/03/23 Blood in stool, abdominal pain Requesting physician: Malik Serra - Chief Complaint Melena - History of Present Illness This is a pleasant 82-year-old female who presented to the emergency department on 11/28/2023 after sustaining a fall. Apparently patient had been feeling weak and was trying to get out of bed and fell. She has a past medical history including hyperlipidemia, hypertension, thrombocytopenia and osteoarthritis. She was admitted to the hospital with UTI, sepsis and obstructing ureteral stone. During this hospitalization she had a max temp of 101.3. She underwent cystoscopy. Also diagnosed with new onset atrial fibrillation, was initially started on a heparin drip but that was discontinued due to acute on chronic thrombocytopenia. Apparently yesterday she started having 2-3 black stools. She had some orthostatic hypotension and she was sent to the ICU for closer monitoring. Vital signs have been stable since, she had no further black or b loody bowel movements through the night. Hemoglobin on admission was 13.9 with a repeat today of 9.6. Platelet count 65,000. Patient denies any history of GI bleed. She is not currently on any anti coagulation. She does admit to taking Aleve usually several times a week. No history of peptic ulcer disease. No previous upper endoscopy. Last colonoscopy 09/11/2018 with normal findings other than scattered sigmoid diverticulosis. She currently denies any abdominal pain, she states she had no abdominal pain associated with the bowel movements. She does have a little bit of nausea but no vomiting. Review of Systems REVIEW OF SYSTEMS: CARDIOPULMONARY: No chest pain or shortness of breath. Gastrointestinal: No abdominal pain. Nausea but no vomiting.. No hematemesis, coffee-ground emesis. No rectal bleeding. Melena. GENITOURINARY: No dysuria or hematuria. MUSCULOSKELETAL: Reports normal range of motion., Joint pain. SKIN: No rashes. No jaundice. ENDOCRINE: No chills, fevers. No excessive weight gain or loss. No polydipsia or polyuria. PSYCHIATRIC: Unremarkable. NEUROLOGY: No change in mental status. Denies dizziness, headache. ENT: Vision unremarkable. CONSTITUTIONAL: No recent weight loss. No fever, chills, night sweats. Past Medical History Past Medical History: Hyperlipidemia, Hypertension, Osteoarthritis (OA) History of Any Multi-Drug Resistant Organisms: None Reported Past Surgical History: Breast Surgery Additional Past Surgical History / Comment(s): GROWTH REMOVED- skin lesions. Benign right breast excisional biopsy Past Anesthesia/Blood Transfusion Reactions: No Reported Reaction Past Psychological History: No Psychological Hx Reported Smoking Status: Never smoker Past Alcohol Use History: Rare Past Drug Use History: None Reported Medications and Allergies Home Medications Medication Instructions Recorded Confirmed Type Simvastatin [Zocor] 20 mg PO HS 11/29/23 11/29/23 History lisinopriL [Zestril] 10 mg PO DAILY 11/29/23 11/29/23 History Allergies Allergy/AdvReac Type Severity Reaction Status Date / Time No Known Allergies Allergy Verified 11/29/23 09:37 Physical Exam Vitals: Vital Signs Temp Pulse Pulse Resp BP BP Pulse Ox 12/03/23 07:00 74 24 112/71 96 12/03/23 06:00 75 18 117/66 98 12/03/23 05:00 76 15 121/64 97 12/03/23 04:00 98.2 F 75 13 122/63 95 12/03/23 03:00 80 16 121/64 96 12/03/23 02:00 76 15 117/61 100 12/03/23 01:00 76 18 128/75 96 12/03/23 00:31 74 18 105/63 97 12/03/23 00:00 98.6 F 73 18 100/61 96 12/02/23 23:00 74 24 122/70 97 12/02/23 22:00 75 20 121/68 96 12/02/23 21:00 97.7 F 76 15 133/68 98 12/02/23 20:52 97.6 F 75 16 112/72 96 12/02/23 20:40 97.6 F 76 16 111/70 97 12/02/23 20:30 68 16 122/76 98 12/02/23 20:05 96/62 12/02/23 20:00 100/66 12/02/23 19:45 126/76 12/02/23 19:38 129/74 12/02/23 19:33 131/72 12/02/23 19:26 79/53 12/02/23 19:25 78/43 12/02/23 15:55 98.0 F 74 16 162/77 95 12/02/23 12:39 98.2 F 12/02/23 10:52 101.1 F H 75 24 134/69 93 L 12/02/23 09:15 110 H 20 Intake and Output 12/02/23 12/03/23 12/03/23 22:59 06:59 14:59 Output Total 200 Balance -200 Output: Urine 200 Other: Voiding Method Toilet Bedpan # Voids 1 1 # Bowel Movements 1 Weight 74.9 kg General appearance: The patient is alert, oriented, appears in no acute distress. HET: Head is normocephalic and atraumatic. Conjunctiva pink. Sclera anicteric. Neck: Supple without lymphadenopathy. Trachea midline. Heart: Regular. Lungs: Equal expansion, normal respiratory effort. Abdomen: Soft, nontender, nondistended. Skin: No rashes. No jaundice. Extremities: Normal skin color and turgor. No pedal edema. Neurological: No focal deficits. Alert and oriented x3. Results CBC & Chem 7: 12/03/23 05:10 12/03/23 05:10 Labs: Abnormal Lab Results - Last 24 Hours (Table) 12/02/23 12/02/23 12/02/23 Range/Units 06:09 06:09 14:24 WBC (3.8-10.6) k/uL RBC (3.80-5.40) m/uL Hgb (11.4-16.0) gm/dL Hct (34.0-46.0) % Plt Count (150-450) k/uL Neutrophils # (1.3-7.7) k/uL Lymphocytes # 0.6 L (1.0-4.8) k/uL Fibrinogen 648 H (200-500) mg/dL Chloride (98-107) mmol/L BUN (7-17) mg/dL Glucose (74-99) mg/dL POC Glucose (mg/dL) (70-110) mg/dL Calcium (8.4-10.2) mg/dL Iron 17 L (50-170) UG/DL TIBC 207 L (228-460) UG/DL % Saturation 8.21 L (12.00-45.00) Transferrin 148.0 L (204.0-354.0) mg/dL Ferritin 398.0 H (10.0-291.0) ng/mL Stool Occult Blood (Negative) 12/02/23 12/02/23 12/02/23 Range/Units 19:23 20:03 20:11 WBC 10.8 H (3.8-10.6) k/uL RBC 3.67 L (3.80-5.40) m/uL Hgb 11.0 L (11.4-16.0) gm/dL Hct 33.3 L (34.0-46.0) % Plt Count 61 L (150-450) k/uL Neutrophils # 8.8 H (1.3-7.7) k/uL Lymphocytes # 0.6 L (1.0-4.8) k/uL Fibrinogen (200-500) mg/dL Chloride (98-107) mmol/L BUN (7-17) mg/dL Glucose (74-99) mg/dL POC Glucose (mg/dL) 126 H (70-110) mg/dL Calcium (8.4-10.2) mg/dL Iron (50-170) UG/DL TIBC (228-460) UG/DL % Saturation (12.00-45.00) Transferrin (204.0-354.0) mg/dL Ferritin (10.0-291.0) ng/mL Stool Occult Blood Positive H (Negative) 12/02/23 12/03/23 12/03/23 Range/Units 20:58 00:20 05:10 WBC 11.1 H 11.6 H (3.8-10.6) k/uL RBC 3.33 L 3.18 L (3.80-5.40) m/uL Hgb 10.2 L 9.6 L (11.4-16.0) gm/dL Hct 29.0 L 28.0 L (34.0-46.0) % Plt Count 57 L 65 L (150-450) k/uL Neutrophils # 9.3 H 9.4 H (1.3-7.7) k/uL Lymphocytes # 0.6 L 0.8 L (1.0-4.8) k/uL Fibrinogen (200-500) mg/dL Chloride (98-107) mmol/L BUN (7-17) mg/dL Glucose (74-99) mg/dL POC Glucose (mg/dL) 154 H (70-110) mg/dL Calcium (8.4-10.2) mg/dL Iron (50-170) UG/DL TIBC (228-460) UG/DL % Saturation (12.00-45.00) Transferrin (204.0-354.0) mg/dL Ferritin (10.0-291.0) ng/mL Stool Occult Blood (Negative) 12/03/23 Range/Units 05:10 WBC (3.8-10.6) k/uL RBC (3.80-5.40) m/uL Hgb (11.4-16.0) gm/dL Hct (34.0-46.0) % Plt Count (150-450) k/uL Neutrophils # (1.3-7.7) k/uL Lymphocytes # (1.0-4.8) k/uL Fibrinogen (200-500) mg/dL Chloride 110 H (98-107) mmol/L BUN 26 H (7-17) mg/dL Glucose 132 H (74-99) mg/dL POC Glucose (mg/dL) (70-110) mg/dL Calcium 8.2 L (8.4-10.2) mg/dL Iron (50-170) UG/DL TIBC (228-460) UG/DL % Saturation (12.00-45.00) Transferrin (204.0-354.0) mg/dL Ferritin (10.0-291.0) ng/mL Stool Occult Blood (Negative) Comments: CT abdomen pelvis with contrast partially obstructing 3 mm right proximal ureter stone. No hydronephrosis. Hepatic steatosis. Hysterectomy. Diverticulosis, without acute diverticulitis. No small bowel obstruction. No free intraperitoneal air. Assessment and Plan (1) Melena Narrative/Plan: 82-year-old female admitted for weakness and fall found to be septic with UTI, partially obstructing ureter stone status post cystoscopy and new onset atrial fibrillation. Apparently patient does have a history of chronic thrombocytopenia although she has not ever seen hematology for it. CT abdomen pelvis does report hepatic steatosis, hematology is seeing patient and thought thrombocytopenia may be secondary to underlying liver disease with acute on chronic secondary to infection. Patient does admit to taking Aleve regularly. Need to consider possible upper GI bleed with elevated BUN, with possible etiologies including peptic ulcer disease, gastritis, esophagitis, AVM or other possible etiologies. Hold off on anticoagulation, hold NSAIDs. Will plan further evaluation with upper endoscopy. Current Visit: Yes Status: Acute Code(s): K92.1 - MELENA SNOMED Code(s): 2689233 (2) Anemia Current Visit: Yes Status: Acute Code(s): D64.9 - ANEMIA, UNSPECIFIED SNOMED Code(s): 970441093 (3) Sepsis Current Visit: Yes Status: Acute Priority: High Code(s): A41.9 - SEPSIS, UNSPECIFIED ORGANISM SNOMED Code(s): 89200904 (4) Thrombocytopenia Current Visit: Yes Status: Acute Priority: Medium Code(s): D69.6 - THROMBOCYTOPENIA, UNSPECIFIED SNOMED Code(s): 538024697 (5) UTI (urinary tract infection) Current Visit: Yes Status: Acute Priority: High Code(s): N39.0 - URINARY TRACT INFECTION, SITE NOT SPECIFIED SNOMED Code(s): 48642553 (6) Atrial fibrillation Current Visit: Yes Status: Acute Code(s): I48.91 - UNSPECIFIED ATRIAL FIBRILLATION SNOMED Code(s): 09178340 Plan: 1. Continue symptomatic and supportive care 2. Keep n.p.o. 3. CBC at 12:00 then daily 4. Transfuse for hemoglobin less than 7 5. Hold anticoagulation 6. Avoid NSAID use 7. Protonix 40 mg twice daily 8. Will plan on upper endoscopy this afternoon 9. Further recommendations forthcoming based on clinical course Thank you for this consultation, we will continue to follow. Dr. Maria Teresa Kulkarni I agree with the dictator's note, documented as a scribe by Daisy Patino.
[2023-12-03 12:33] LABS: Platelet Count 87 k/uL (150-450)
--- NOTE | 2023-12-03 12:58 | P.PN ---
Subjective Progress Note Date: 12/03/23 11/30/2023 this is an 82-year-old female admitted with complicated UTI, bacteremia status post cystoscopy with placement of a right double-J catheter. Blood culture reporting E. coli, urine culture reporting gram-negative, maintained on ceftriaxone. Tmax 101.5, WBC 8. Denies nausea vomiting or diarrhea. Denies abdominal pain. Reports feeling minimally better. Denies chest pain, palpitations or shortness of breath. Maintaining O2 sats in the low 90s on 2 L nasal cannula. Elevated troponins, 0.175, 0.194, repeat EKG reported atrial fibrillation/flutter with heart rates in the 150s. Echo pending. Currently maintained on Cardizem and heparin drips. 12/01/2023 telemetry reporting fluctuating atrial fibrillation with heart rates as high as the 160s. Echo reporting left ventricular systolic function borderline normal, 50 to 55%, mild mitral and tricuspid regurgitation. Repeat EKG pending. Cardizem drip discontinued, beta-edu increased. Anticoagulation on hold, labs performed later in the morning yesterday reported decrease in platelets to 45. urine culture reporting E. coli, blood culture reporting E. coli, molecular D, maintained on ceftriaxone, as per ID. Tmax 101, WBC within normal limits. Up to bathroom with walker and PT, tolerated exertion well. Maintaining O2 sats in the 90s on 3 L nasal cannula. 12/02/2023 maintained on ceftriaxone, Tmax 101.1, normal WBC. Requiring 4 L nasal cannula to maintain O2 sats in the 90s. Potassium 3.3, magnesium 1.9. Telemetry reporting sinus rhythm throughout the night. Remains off of anticoagulation secondary to thrombocytopenia, platelets increased to 57. 12/03/2023 patient was transferred into the ICU last night secondary to symptomatic GI bleed, hypotension. Reports 3 black bowel movements, positive occult blood. Evaluated by GI and patient is scheduled for EGD tomorrow. Hemoglobin 9.6, platelets 65. Electrolytes and renal function stable. Continues on ceftriaxone for E. coli UTI and bacteremia. Afebrile, WBC 11.6. Chest x-ray reports unchanged with upper lobe patchy infiltrates, right greater than left .maintaining O2 sats in the 90s on 2 L nasal cannula. Receiving potassium supplements as per ICU replacement protocol. Denies chest pain, palpitations or shortness of breath. Complains of mild nausea. Objective - Vital Signs Vital signs: Vital Signs Temp 98.2 F 12/03/23 04:00 Pulse 74 12/03/23 07:00 Resp 24 12/03/23 07:00 BP 112/71 12/03/23 07:00 Pulse Ox 96 12/03/23 07:00 FiO2 Intake & Output 12/02/23 12/03/23 12/03/23 18:59 06:59 18:59 Intake Total 118 Output Total 15 200 Balance 103 -200 Weight 74.9 kg Intake: Oral 118 Output: Urine 200 Emesis 15 Other: Voiding Method Toilet Bedpan # Voids 1 1 # Bowel Movements 1 - Exam GENERAL: alert and oriented x3, sitting up in bed, no acute distress. HEENT: Normocephalic, pupils are round and equal, Conjunctiva normal. CARDIOVASCULAR: S1 and S2 present. Irregular rate and rhythm ,no murmurs, rubs, or gallops. PULMONARY: Unlabored, equal air entry, essentially clear to auscultation ABDOMEN: Soft, nontender, nondistended, no guarding, no rigidity, normoactive bowel sounds. EXTREMITIES: No cyanosis, clubbing, or pedal edema. NEUROLOGICAL: Gross neurological examination did not reveal any focal deficits. SKIN: No rashes noted, warm and dry. - Labs CBC & Chem 7: 12/03/23 11:55 12/03/23 05:10 Labs: Abnormal Lab Results - Last 24 Hours (Table) 12/02/23 12/02/23 12/02/23 Range/Units 06:09 14:24 19:23 WBC (3.8-10.6) k/uL RBC (3.80-5.40) m/uL Hgb (11.4-16.0) gm/dL Hct (34.0-46.0) % Plt Count (150-450) k/uL Neutrophils # (1.3-7.7) k/uL Lymphocytes # (1.0-4.8) k/uL Fibrinogen 648 H (200-500) mg/dL Chloride (98-107) mmol/L BUN (7-17) mg/dL Glucose (74-99) mg/dL POC Glucose (mg/dL) 126 H (70-110) mg/dL Calcium (8.4-10.2) mg/dL Iron 17 L (50-170) UG/DL TIBC 207 L (228-460) UG/DL % Saturation 8.21 L (12.00-45.00) Transferrin 148.0 L (204.0-354.0) mg/dL Ferritin 398.0 H (10.0-291.0) ng/mL Stool Occult Blood (Negative) 12/02/23 12/02/23 12/02/23 Range/Units 20:03 20:11 20:58 WBC 10.8 H (3.8-10.6) k/uL RBC 3.67 L (3.80-5.40) m/uL Hgb 11.0 L (11.4-16.0) gm/dL Hct 33.3 L (34.0-46.0) % Plt Count 61 L (150-450) k/uL Neutrophils # 8.8 H (1.3-7.7) k/uL Lymphocytes # 0.6 L (1.0-4.8) k/uL Fibrinogen (200-500) mg/dL Chloride (98-107) mmol/L BUN (7-17) mg/dL Glucose (74-99) mg/dL POC Glucose (mg/dL) 154 H (70-110) mg/dL Calcium (8.4-10.2) mg/dL Iron (50-170) UG/DL TIBC (228-460) UG/DL % Saturation (12.00-45.00) Transferrin (204.0-354.0) mg/dL Ferritin (10.0-291.0) ng/mL Stool Occult Blood Positive H (Negative) 12/03/23 12/03/23 12/03/23 Range/Units 00:20 05:10 05:10 WBC 11.1 H 11.6 H (3.8-10.6) k/uL RBC 3.33 L 3.18 L (3.80-5.40) m/uL Hgb 10.2 L 9.6 L (11.4-16.0) gm/dL Hct 29.0 L 28.0 L (34.0-46.0) % Plt Count 57 L 65 L (150-450) k/uL Neutrophils # 9.3 H 9.4 H (1.3-7.7) k/uL Lymphocytes # 0.6 L 0.8 L (1.0-4.8) k/uL Fibrinogen (200-500) mg/dL Chloride 110 H (98-107) mmol/L BUN 26 H (7-17) mg/dL Glucose 132 H (74-99) mg/dL POC Glucose (mg/dL) (70-110) mg/dL Calcium 8.2 L (8.4-10.2) mg/dL Iron (50-170) UG/DL TIBC (228-460) UG/DL % Saturation (12.00-45.00) Transferrin (204.0-354.0) mg/dL Ferritin (10.0-291.0) ng/mL Stool Occult Blood (Negative) Assessment and Plan Assessment: Sepsis present on admission secondary to complicated UTI and bacteremia with E. coli, sensitive to ceftriaxone Right ureteral calculus with obstruction, right pyelonephrosis status post cystoscopy, placement of double-J catheter right Acute hypoxic respiratory failure secondary to the above Acute CHF exacerbation, diastolic dysfunction New onset paroxysmal atrial fibrillation, anticoagulation on hold secondary to thrombocytopenia Acute on chronic thrombocytopenia Acute GI bleed Elevated troponins, NSTEMI type II Generalized weakness, mechanical fall Hemoglobin A1c 6.1 Plan: Continue on current medication regimen ,monitoring and symptomatic treatment. PPI increased, evaluated by GI and patient is scheduled for EGD tomorrow. close monitoring of coags with repeat cbc this afternoon. continue on IV antibiotics as per infectious disease. Continue holding anticoagulation. ICU management as per spectrographic analyst. The impression and plan of care has been dictated as directed. : I performed a history and examination of this patient, discussed the same with the dictator. I agree with the dictator's note ,documented as a scribe. Any additional findings or plans will be noted.
--- NOTE | 2023-12-03 14:33 | P.PN ---
Subjective Progress Note Date: 12/03/23 Principal diagnosis: Reason for follow-up is complicated UTI and bacteremia Patient is a 82-year-old female with a past medical history significant for hypertension hyperlipidemia osteoarthritis presenting to the hospital after pending the patient did have a fall patient has been complaining of feeling very weak and has been diagnosed with sepsis secondary to complicated UTI in this patient who is status post cystoscopy with right ureteral stent placement and the blood culture came positive with E. coli. On today's evaluation that is 12/03/2023, patient has been afebrile, patient is breathing comfortably and is currently on room air, patient denies having any s ignificant cough no chest pain, patient denies nausea vomiting or abdominal pain did have a bleeding per rectum for the patient be transferred to the ICU. Patient white count is up to 15,000, creatinine 0.56 Objective - Vital Signs Vital signs: Vital Signs Temp 98.2 F 12/03/23 12:00 Pulse 75 12/03/23 13:00 Resp 22 12/03/23 13:00 BP 142/71 12/03/23 13:00 Pulse Ox 93 L 12/03/23 13:00 FiO2 Intake & Output 12/02/23 12/03/23 12/03/23 18:59 06:59 18:59 Intake Total 118 350 Output Total 15 200 250 Balance 103 -200 100 Weight 74.9 kg Intake: IV 350 Potassium Chloride 10 meq 300 In Water For Injection 1 100ml.bag @ 100 mls/hr IVPB Q1HR ADA Rx#: [id number] cefTRIAXone 2 gm In 50 Sodium Chloride 0.9% 50 ml @ 100 mls/hr IVPB Q24HR ADA Rx#:[id number] Oral 118 Output: Urine 200 250 Emesis 15 Other: Voiding Method Toilet Bedpan Bedpan # Voids 1 1 0 # Bowel Movements 1 1 - Exam GENERAL DESCRIPTION: An elderly female lying in bed in no distress RESPIRATORY SYSTEM: Unlabored breathing , decreased breath sounds at bases HEART: S1 S2 regular rate and rhythm , ABDOMEN: Soft , no tenderness EXTREMITIES: No edema feet - Labs CBC & Chem 7: 12/03/23 11:55 12/03/23 05:10 Labs: Abnormal Lab Results - Last 24 Hours (Table) 12/02/23 12/02/23 12/02/23 Range/Units 06:09 14:24 19:23 WBC (3.8-10.6) k/uL RBC (3.80-5.40) m/uL Hgb (11.4-16.0) gm/dL Hct (34.0-46.0) % Plt Count (150-450) k/uL Neutrophils # (1.3-7.7) k/uL Lymphocytes # (1.0-4.8) k/uL Fibrinogen 648 H (200-500) mg/dL Chloride (98-107) mmol/L BUN (7-17) mg/dL Glucose (74-99) mg/dL POC Glucose (mg/dL) 126 H (70-110) mg/dL Calcium (8.4-10.2) mg/dL Iron 17 L (50-170) UG/DL TIBC 207 L (228-460) UG/DL % Saturation 8.21 L (12.00-45.00) Transferrin 148.0 L (204.0-354.0) mg/dL Ferritin 398.0 H (10.0-291.0) ng/mL Stool Occult Blood (Negative) 12/02/23 12/02/23 12/02/23 Range/Units 20:03 20:11 20:58 WBC 10.8 H (3.8-10.6) k/uL RBC 3.67 L (3.80-5.40) m/uL Hgb 11.0 L (11.4-16.0) gm/dL Hct 33.3 L (34.0-46.0) % Plt Count 61 L (150-450) k/uL Neutrophils # 8.8 H (1.3-7.7) k/uL Lymphocytes # 0.6 L (1.0-4.8) k/uL Fibrinogen (200-500) mg/dL Chloride (98-107) mmol/L BUN (7-17) mg/dL Glucose (74-99) mg/dL POC Glucose (mg/dL) 154 H (70-110) mg/dL Calcium (8.4-10.2) mg/dL Iron (50-170) UG/DL TIBC (228-460) UG/DL % Saturation (12.00-45.00) Transferrin (204.0-354.0) mg/dL Ferritin (10.0-291.0) ng/mL Stool Occult Blood Positive H (Negative) 12/03/23 12/03/23 12/03/23 Range/Units 00:20 05:10 05:10 WBC 11.1 H 11.6 H (3.8-10.6) k/uL RBC 3.33 L 3.18 L (3.80-5.40) m/uL Hgb 10.2 L 9.6 L (11.4-16.0) gm/dL Hct 29.0 L 28.0 L (34.0-46.0) % Plt Count 57 L 65 L (150-450) k/uL Neutrophils # 9.3 H 9.4 H (1.3-7.7) k/uL Lymphocytes # 0.6 L 0.8 L (1.0-4.8) k/uL Fibrinogen (200-500) mg/dL Chloride 110 H (98-107) mmol/L BUN 26 H (7-17) mg/dL Glucose 132 H (74-99) mg/dL POC Glucose (mg/dL) (70-110) mg/dL Calcium 8.2 L (8.4-10.2) mg/dL Iron (50-170) UG/DL TIBC (228-460) UG/DL % Saturation (12.00-45.00) Transferrin (204.0-354.0) mg/dL Ferritin (10.0-291.0) ng/mL Stool Occult Blood (Negative) 12/03/23 12/03/23 Range/Units 05:10 11:55 WBC 15.0 H (3.8-10.6) k/uL RBC 3.39 L (3.80-5.40) m/uL Hgb 10.4 L (11.4-16.0) gm/dL Hct 29.9 L (34.0-46.0) % Plt Count 87 L (150-450) k/uL Neutrophils # 12.6 H (1.3-7.7) k/uL Lymphocytes # 0.9 L (1.0-4.8) k/uL Fibrinogen (200-500) mg/dL Chloride 111 H (98-107) mmol/L BUN 27 H (7-17) mg/dL Glucose 134 H (74-99) mg/dL POC Glucose (mg/dL) (70-110) mg/dL Calcium 8.2 L (8.4-10.2) mg/dL Iron (50-170) UG/DL TIBC (228-460) UG/DL % Saturation (12.00-45.00) Transferrin (204.0-354.0) mg/dL Ferritin (10.0-291.0) ng/mL Stool Occult Blood (Negative) Assessment and Plan (1) Sepsis Current Visit: Yes Status: Acute Priority: High Code(s): A41.9 - SEPSIS, UNSPECIFIED ORGANISM SNOMED Code(s): 33003818 (2) UTI (urinary tract infection) Current Visit: Yes Status: Acute Priority: High Code(s): N39.0 - URINARY TRACT INFECTION, SITE NOT SPECIFIED SNOMED Code(s): 40344464 Plan: 1patient presented to hospital with sepsis in this patient who did have fever tachycardia meeting currently for SIRS source likely urinary patient did have lower abdominal pain positive UA and left-sided ureteral stone concerning for possible complicated UTI likely from enteric gram-negative pathogen 2-patient is status post cystoscopy and right ureteral stent placement by urology 3 blood culture as well as urine culture is growing E. coli both the sensitive to ceftriaxone 4-patient did have a GI bleed for the patient transferred to ICU slight worsening of the white count could be reactive we will continue Rocephin and monitor clinical course closely Dictation was produced using [employer] dictation software. please excuse any grammatical, word or spelling errors. Time with Patient: Less than 30
[2023-12-03] MEDS ORDERED: LIDOCAINE 1% INJ 10MG/ML (20 ML MDV) ONE (16:10)
[2023-12-03] MEDS ORDERED: ONDANSETRON 4 MG/2 ML VIAL ONE (16:10)
[2023-12-03] MEDS ORDERED: PROPOFOL 10 MG/ML 20 ML VIAL IV ONE (16:10)
[2023-12-03] MEDS: LACTATED RINGERS 1,000 ML IV ONE (16:17)
[2023-12-03] MEDS: EPINEPHrine 10 ML SYRINGE (0.1 MG/ML) INTRAOSSEO ONE (16:33)
--- NOTE | 2023-12-03 16:39 | P.PCN ---
Date of Procedure: 12/03/23 Procedure(s) Performed: BRIEF HISTORY: Patient is a 62-year-old, pleasant, white female admitted to hospital with urosepsis. While in the hospital she developed acute GI bleed with 2 black tarry stools yesterday and 2 maroon-colored stools today. Hemoglobin dropped from 12 to 9 g/dL. She has got an upper endoscopy to evaluate further. PROCEDURE PERFORMED: Esophagogastroduodenoscopy with injection epinephrine and Endo Clip placement. PREOPERATIVE DIAGNOSIS: Acute GI bleed. IV sedation per anesthesia. PROCEDURE: After informed consent was obtained, the patient was brought into the endoscopy unit. IV sedation was administered by Anesthesia under continuous monitoring. Initially the Olympus GIF-140 video endoscope was inserted into the mouth. Esophagus intubated without any difficulty. It was gradually advanced into the stomach and duodenum and carefully examined. In the stomach there was approximately 1 L of coffee colored gastric secretions that were aspirated. In the bulb of the duodenum there was a 3 cm ulceration identified in the center of the ulcer there was a visible vessel with adherent clot with oozing around that area. I initially injected 1 L thousand epinephrine at the site of the visible vessel at which time hemostasis was achieved. Following this an Endo Clip was placed on the visible vessel and no further bleeding was noted.. The scope at this time was withdrawn to the stomach, adequately insufflated with air, and upon careful examination, mucosa of the antrum, body, cardia and the fundus appeared normal. The scope was then withdrawn into the esophagus. The GE junction was located at 39 cm from the incisors. The esophagus appeared normal. There were no erosions or ulcerations seen and the patient tolerated the procedure well. IMPRESSION: 1. 3 cm large duodenal ulcer along the duodenal sweep with some oozing and adherent clot status post injection epinephrine followed by Endo Clip placement with good hemostasis. 2. 1 L of coffee-ground fluid aspirated from the stomach. RECOMMENDATIONS: The findings of this examination were discussed with the patient as well as her family. Continue with IV Protonix 40 mg twice daily. Monitor CBC every 6 hours and transfuse if the hemoglobin is less than 8 g/dL. Repeat surgical consultation as a standby. Clear liquid diet today.
[2023-12-03 19:06] LABS: HCT 26.2 % (34.0-46.0); MCH 30.6 pg (25.0-35.0); MCHC 34.5 g/dL (31.0-37.0); MCV 88.7 fL (80.0-100.0); Mean Platelet Volume 12.7; RBC 2.95 m/uL (3.80-5.40); RDW 14.8 % (11.5-15.5); WBC 15.4 k/uL (3.8-10.6)
[2023-12-03 19:15] LABS: Platelet Count 80 k/uL (150-450)
[2023-12-04 00:26] LABS: HCT 26.8 % (34.0-46.0); HGB 8.8 gm/dL (11.4-16.0); MCH 29.8 pg (25.0-35.0); MCHC 32.9 g/dL (31.0-37.0); MCV 90.5 fL (80.0-100.0); Mean Platelet Volume 13.3; RBC 2.96 m/uL (3.80-5.40); RDW 14.5 % (11.5-15.5); WBC 15.9 k/uL (3.8-10.6)
[2023-12-04 01:06] LABS: Platelet Count 92 k/uL (150-450)
[2023-12-04 05:16] LABS: Methylmalonic Acid 0.34 umol/L (<0.40)
[2023-12-04 06:14] LABS: HGB 8.2 gm/dL (11.4-16.0); MCH 30.9 pg (25.0-35.0); MCHC 34.3 g/dL (31.0-37.0); MCV 89.9 fL (80.0-100.0); Mean Platelet Volume 11.4; RBC 2.67 m/uL (3.80-5.40); RDW 14.8 % (11.5-15.5); WBC 13.7 k/uL (3.8-10.6)
[2023-12-04 06:20] LABS: Platelet Count 98 k/uL (150-450)
[2023-12-04 06:29] LABS: ALT 35 U/L (4-34); AST 36 U/L (14-36); African American GFR (CKD) >90 (>60 ml/min/1.73 sqM); Albumin 2.3 g/dL (3.5-5.0); Alkaline Phosphatase 66 U/L (38-126); Anion Gap 1 mmol/L; Blood Urea Nitrogen 21 mg/dL (7-17); Calcium 7.9 mg/dL (8.4-10.2); Carbon Dioxide 25 mmol/L (22-30); Chloride 112 mmol/L (98-107); Glucose 111 mg/dL (74-99); Non-African American GFR(CKD) 87 (>60 ml/min/1.73 sqM); Potassium 3.5 mmol/L (3.5-5.1); Sodium 138 mmol/L (137-145); Total Bilirubin 0.8 mg/dL (0.2-1.3); Total Protein 4.5 g/dL (6.3-8.2)
[2023-12-04] MEDS: POTASSIUM CHLORIDE ER 20 MEQ TAB.ER PO SCH (08:19)
--- NOTE | 2023-12-04 08:44 | P.PN ---
Subjective Progress Note Date: 12/04/23 Principal diagnosis: HPI: This lady has history of hypertension hyperlipidemia remarkably active lady came in with what seems to be renal stones UTI has also bacteremia with E. coli. While she was here she went into atrial fibrillation was heparinized developed significant GI bleed and endoscopy yesterday revealed a 3 cm ulcer in the duodenum with active bleeding. She received epinephrine injection as well as clipping with success. Hemoglobin is 8.2 today which seems to be stable we will repeat another 1 at 6 PM today and 6 AM tomorrow. Hemodynamically stable in sinus rhythm. I am recommending that she will not receive any anticoagulation given her life-threatening bleeding that happened yesterday with a drop in hemoglobin of more than 3 points. I am also recommending that we will check blood cultures as well as urine cultures and continue with other supportive c are. Blood pressure control is good maintaining sinus rhythm. PHYSICIAL EXAM: Vitals are stable no JVD S1-S2 heard normally no significant murmurs lungs are clear abdomen is soft nontender Central nervous system is normal. IMPRESSION: 1. Acute GI bleed with duodenal ulcer s/p endoscopy and clipping and epinephrine injection with stable hemoglobin. 2. Renal stones. 3. UTI and E. coli bacteremia. 4. Paroxysmal atrial fibrillation maintaining sinus rhythm. 5. Benign hypertension. RECOMMENDATIONS: Monitor hemoglobin closely, obtain blood and urine cultures. No anticoagulation for this lady. Her episode of atrial fibrillation occurred in the setting of bacteremia with sepsis. Discussed my thoughts in detail with the patient and spoke to her . Objective - Vital Signs Vital signs: Vital Signs Temp 98.4 F 12/04/23 08:00 Pulse 71 12/04/23 08:00 Resp 17 12/04/23 08:00 BP 115/61 12/04/23 08:00 Pulse Ox 96 12/04/23 08:00 FiO2 Intake & Output 12/03/23 12/04/23 12/04/23 18:59 06:59 18:59 Intake Total 750 120 Output Total 250 550 250 Balance 500 -430 -250 Weight 74.7 kg Intake: IV 750 Potassium Chloride 10 meq 400 In Water For Injection 1 100ml.bag @ 100 mls/hr IVPB Q1HR [facility] Rx#: [id number] cefTRIAXone 2 gm In 50 Sodium Chloride 0.9% 50 ml @ 100 mls/hr IVPB Q24HR [facility] Rx#:[id number] Oral 120 Output: Urine 250 550 250 Other: Voiding Method Bedpan Bedpan # Voids 1 1 # Bowel Movements 2 1 - Labs CBC & Chem 7: 12/04/23 05:47 12/04/23 05:47 Labs: Abnormal Lab Results - Last 24 Hours (Table) 12/03/23 12/03/23 12/03/23 Range/Units 05:10 11:55 18:34 WBC 15.0 H 15.4 H (3.8-10.6) k/uL RBC 3.39 L 2.95 L (3.80-5.40) m/uL Hgb 10.4 L 9.0 L (11.4-16.0) gm/dL Hct 29.9 L 26.2 L (34.0-46.0) % Plt Count 87 L 80 L (150-450) k/uL Neutrophils # 12.6 H (1.3-7.7) k/uL Lymphocytes # 0.9 L (1.0-4.8) k/uL Chloride 111 H (98-107) mmol/L BUN 27 H (7-17) mg/dL Glucose 134 H (74-99) mg/dL Calcium 8.2 L (8.4-10.2) mg/dL ALT (4-34) U/L Total Protein (6.3-8.2) g/dL Albumin (3.5-5.0) g/dL 12/03/23 12/04/23 12/04/23 Range/Units 23:45 05:47 05:47 WBC 15.9 H 13.7 H (3.8-10.6) k/uL RBC 2.96 L 2.67 L (3.80-5.40) m/uL Hgb 8.8 L 8.2 L (11.4-16.0) gm/dL Hct 26.8 L 24.0 L (34.0-46.0) % Plt Count 92 L 98 L (150-450) k/uL Neutrophils # (1.3-7.7) k/uL Lymphocytes # (1.0-4.8) k/uL Chloride 112 H (98-107) mmol/L BUN 21 H (7-17) mg/dL Glucose 111 H (74-99) mg/dL Calcium 7.9 L (8.4-10.2) mg/dL ALT 35 H (4-34) U/L Total Protein 4.5 L (6.3-8.2) g/dL Albumin 2.3 L (3.5-5.0) g/dL
--- NOTE | 2023-12-04 10:05 | P.PN ---
Subjective Progress Note Date: 12/04/23 This is an 82-year-old female patient with a known history of hypertension, hyperlipidemia, osteoarthritis, lifelong non-smoker. She presented here to the emergency room back on 11/28/2023 after sustaining a fall secondary to weakness for several days prior to her arrival. No injury. Chest x-ray at that time revealed no acute pulmonary process. This with obstruction with urinary tract infection secondary to E. coli and right pyelonephritis. She did undergo cystoscopy with placement of a double-J catheter on the right on 11/29/2023. Blood cultures were positive for E. coli as well. Echocardiogram revealed preserved left ventricular systolic function with ejection fraction of 50 to 55%. No significant valvular abnormalities. A follow-up chest x-ray on 11/30/2023 revealed perihilar consolidations concerning for pneumonia. Small left pleural effusion. Still hypoxemic with oxygen at 4 L/min per nasal cannula. Temperature 101.1 today. She is hemodynamically stable. We are consulted today 12/02/2023. Currently seen sitting up in bed. Awake and alert in no acute distress. White count 8.3. Hemoglobin 12.2. Platelets 57,000. Sodium 140. Potassium 3.3. Bicarb 30. BUN 22. Creatinine 0.63. She is currently on ceftriaxone. The patient is seen today December 03, 2023 in follow-up in the intensive care unit. She was transferred here due to episodes of GI bleeding, atrial fibril lation, hypotension. Nightly, she is sitting up in bed. Awake and alert in no acute distress. Maintaining O2 saturations in the 90s on 2 L/min per nasal cannula. She is afebrile. Hemodynamically stable. She did have a bloody bowel movement again this morning. Urine cultures positive for E. coli. Blood cultures positive for E. coli. White count 11.6. Hemoglobin 9.6. Platelets 65,000. Sodium 140. Potassium 3.5. Bicarb 26. BUN 27. Creatinine 0.56. Glucose 134. She remains on ceftriaxone. Chest x-ray shows upper patchy infiltrates on the right greater than left. Unchanged. The patient is seen today December 04, 2023 in follow-up in the intensive care unit. She is currently awake and alert in no acute distress. Maintaining O2 saturations in the 90s on 3 L/min per nasal cannula. She is afebrile. Hemodynamically stable. She did undergo an EGD yesterday and was found to have a duodenal ulcer that required epinephrine and clipping. No further bleeding. 1 L of coffee-ground fluid was aspirated from the stomach. Blood and urine cultures are positive for E. coli. White count 13.7. Hemoglobin 8.2. Platelets 98. Sodium 138. Potassium 3.5. Bicarb 25. BUN 21. Creatinine 0.57. Glucose 111. She remains on IV Protonix. Continued on bronchodilators. Continued on ceftriaxone. Objective - Vital Signs Vital signs: Vital Signs Temp 98.4 F 12/04/23 08:00 Pulse 70 12/04/23 09:00 Resp 19 12/04/23 09:00 BP 113/53 12/04/23 09:00 Pulse Ox 96 12/04/23 09:00 FiO2 Intake & Output 12/03/23 12/04/23 12/04/23 18:59 06:59 18:59 Intake Total 750 120 290 Output Total 250 550 450 Balance 500 -430 -160 Weight 74.7 kg Intake: IV 750 50 Potassium Chloride 10 meq 400 In Water For Injection 1 100ml.bag @ 100 mls/hr IVPB Q1HR [facility] Rx#: [id number] cefTRIAXone 2 gm In 50 50 Sodium Chloride 0.9% 50 ml @ 100 mls/hr IVPB Q24HR [facility] Rx#:[id number] Oral 120 240 Output: Urine 250 550 450 Other: Voiding Method Bedpan Bedpan Bedpan # Voids 1 1 # Bowel Movements 2 1 - Exam GENERAL EXAM: Alert, pleasant 82-year-old female, sitting up in bed, on 2 L nasal cannula, in no apparent distress. HEAD: Normocephalic. EYES: Normal reaction of pupils, equal size. NOSE: Clear with pink turbinates. THROAT: No erythema or exudates. NECK: No masses, no JVD. CHEST: No chest wall deformity. LUNGS: Equal air entry with few scattered rhonchi. CVS: S1 and S2 normal with no audible murmur, regular rhythm. ABDOMEN: No hepatosplenomegaly, normal bowel sounds, no guarding or rigidity. SPINE: No scoliosis or deformity SKIN: No rashes CENTRAL NERVOUS SYSTEM: No focal deficits, tone is normal in all 4 extremities. EXTREMITIES: There is no peripheral edema. No clubbing, no cyanosis. Peripheral pulses are intact. - Labs CBC & Chem 7: 12/04/23 05:47 12/04/23 05:47 Labs: Abnormal Lab Results - Last 24 Hours (Table) 12/03/23 12/03/23 12/03/23 Range/Units 11:55 18:34 23:45 WBC 15.0 H 15.4 H 15.9 H (3.8-10.6) k/uL RBC 3.39 L 2.95 L 2.96 L (3.80-5.40) m/uL Hgb 10.4 L 9.0 L 8.8 L (11.4-16.0) gm/dL Hct 29.9 L 26.2 L 26.8 L (34.0-46.0) % Plt Count 87 L 80 L 92 L (150-450) k/uL Neutrophils # 12.6 H (1.3-7.7) k/uL Lymphocytes # 0.9 L (1.0-4.8) k/uL Chloride (98-107) mmol/L BUN (7-17) mg/dL Glucose (74-99) mg/dL Calcium (8.4-10.2) mg/dL ALT (4-34) U/L Total Protein (6.3-8.2) g/dL Albumin (3.5-5.0) g/dL 12/04/23 12/04/23 Range/Units 05:47 05:47 WBC 13.7 H (3.8-10.6) k/uL RBC 2.67 L (3.80-5.40) m/uL Hgb 8.2 L (11.4-16.0) gm/dL Hct 24.0 L (34.0-46.0) % Plt Count 98 L (150-450) k/uL Neutrophils # (1.3-7.7) k/uL Lymphocytes # (1.0-4.8) k/uL Chloride 112 H (98-107) mmol/L BUN 21 H (7-17) mg/dL Glucose 111 H (74-99) mg/dL Calcium 7.9 L (8.4-10.2) mg/dL ALT 35 H (4-34) U/L Total Protein 4.5 L (6.3-8.2) g/dL Albumin 2.3 L (3.5-5.0) g/dL Assessment and Plan Assessment: Generalized weakness and fall secondary to acute urinary tract infection, sepsis Urinary tract infection secondary to E. coli Bacteremia secondary to E. coli Right renal calculus status post double-J stent catheter placement on 11/29/2023 Acute hypoxemic respiratory failure secondary to acute diastolic congestive heart failure versus possible pneumonia Acute GI bleed, GD on 12/03/2023 revealed a large duodenal ulcer that required epinephrine and clipping New onset proximal atrial fibrillation, not on anticoagulation due to thrombocytopenia Acute on chronic thrombocytopenia Lifelong non-smoker History of diastolic congestive heart failure Hypertension Hyperlipidemia Plan: The patient was seen and evaluated Labs and medications reviewed EGD results reviewed No further bleeding Transfer to the selective care unit We will continue to follow I have personally seen and examined the patient, performed the documentation and the assessment and plan as written. Number of minutes spent on the visit: 10.
--- NOTE | 2023-12-04 11:06 | P.PN ---
Subjective Progress Note Date: 12/04/23 Principal diagnosis: Upper GI bleed This is a pleasant 82-year-old female who presented to the emergency department on 11/28/2023 after sustaining a fall. Apparently patient had been feeling weak and was trying to get out of bed and fell. She has a past medical history including hyperlipidemia, hypertension, thrombocytopenia and osteoarthritis. She was admitted to the hospital with UTI, sepsis and obstructing ureteral stone. During this hospitalization she had a max temp of 101.3. She underwent cystoscopy. Also diagnosed with new onset atrial fibrillation, was initially started on a heparin drip but that was discontinued due to acute on chronic thrombocytopenia. Apparently yesterday she started having 2-3 black stools. She had some orthostatic hypotension and she was sent to the ICU for closer monitoring. Vital signs have been stable since, she had no further black or bloody bowel movements through the night. Hemoglobin on admission was 13.9 with a repeat today of 9.6. Platelet count 65,000. Patient denies any history of GI bleed. She is not currently on any anticoagulation. She does admit to taking Aleve usually several times a week. No history of peptic ulcer disease. No previous upper endoscopy. Last colonoscopy 09/11/2018 with normal findings other than scattered sigmoid diverticulosis. She currently denies any abdominal pain, she states she had no abdominal pain associated with the bowel movements. She does have a little bit of nausea but no vomiting. 12/04/2023 Patient seen and examined today as a follow-up. Yesterday she underwent upper endoscopy with findings of a large 3 cm duodenal ulcer that was oozing status post epinephrine and clip placement. General surgery was consulted should patient continue with bleeding. She has had no further bloody bowel movement since 10 PM yesterday. Hemoglobin this morning is 8.8 platelets 92,000. She is denying any abdominal pain, nausea or vomiting. She is tolerating clear liquid diet. Objective - Vital Signs Vital signs: Vital Signs Temp 98.7 F 12/04/23 04:00 Pulse 73 12/04/23 06:00 Resp 15 12/04/23 06:00 BP 116/58 12/04/23 06:00 Pulse Ox 95 12/04/23 06:00 FiO2 Intake & Output 12/03/23 12/04/23 12/04/23 18:59 06:59 18:59 Intake Total 750 120 Output Total 250 550 Balance 500 -430 Weight 74.7 kg Intake: IV 750 Potassium Chloride 10 meq 400 In Water For Injection 1 100ml.bag @ 100 mls/hr IVPB Q1HR [facility] Rx#: [id number] cefTRIAXone 2 gm In 50 Sodium Chloride 0.9% 50 ml @ 100 mls/hr IVPB Q24HR [facility] Rx#:[id number] Oral 120 Output: Urine 250 550 Other: Voiding Method Bedpan Bedpan # Voids 1 1 # Bowel Movements 2 1 - Exam General appearance: The patient is alert, oriented, appears in no acute distress. HET: Head is normocephalic and atraumatic. Conjunctiva pink. Sclera anicteric. Neck: Supple without lymphadenopathy. Abdomen: Soft, nontender, nondistended with bowel sounds. No guarding or rigi dity. Extremities: Normal skin color and turgor. No pedal edema Skin: No rashes, no jaundice Neurological: No focal deficits. Alert and oriented. - Labs CBC & Chem 7: 12/04/23 05:47 12/04/23 05:47 Labs: Abnormal Lab Results - Last 24 Hours (Table) 12/03/23 12/03/23 12/03/23 Range/Units 05:10 11:55 18:34 WBC 15.0 H 15.4 H (3.8-10.6) k/uL RBC 3.39 L 2.95 L (3.80-5.40) m/uL Hgb 10.4 L 9.0 L (11.4-16.0) gm/dL Hct 29.9 L 26.2 L (34.0-46.0) % Plt Count 87 L 80 L (150-450) k/uL Neutrophils # 12.6 H (1.3-7.7) k/uL Lymphocytes # 0.9 L (1.0-4.8) k/uL Chloride 111 H (98-107) mmol/L BUN 27 H (7-17) mg/dL Glucose 134 H (74-99) mg/dL Calcium 8.2 L (8.4-10.2) mg/dL ALT (4-34) U/L Total Protein (6.3-8.2) g/dL Albumin (3.5-5.0) g/dL 10/12/1612/04/23 12/04/23 Range/Units 23:45 05:47 05:47 WBC 15.9 H 13.7 H (3.8-10.6) k/uL RBC 2.96 L 2.67 L (3.80-5.40) m/uL Hgb 8.8 L 8.2 L (11.4-16.0) gm/dL Hct 26.8 L 24.0 L (34.0-46.0) % Plt Count 92 L 98 L (150-450) k/uL Neutrophils # (1.3-7.7) k/uL Lymphocytes # (1.0-4.8) k/uL Chloride 112 H (98-107) mmol/L BUN 21 H (7-17) mg/dL Glucose 111 H (74-99) mg/dL Calcium 7.9 L (8.4-10.2) mg/dL ALT 35 H (4-34) U/L Total Protein 4.5 L (6.3-8.2) g/dL Albumin 2.3 L (3.5-5.0) g/dL Assessment and Plan (1) GI bleed Narrative/Plan: 82-year-old female admitted for weakness and fall found to be septic with UTI, partially obstructing ureter stone status post cystoscopy and new onset atrial fibrillation. Apparently patient does have a history of chronic thrombocytopenia although she has not ever seen hematology for it. CT abdomen pelvis does report hepatic steatosis, hematology is seeing patient and thought thrombocytopenia may be secondary to underlying liver disease with acute on chronic secondary to infection. Patient does admit to taking Aleve regularly. Need to consider possible upper GI bleed with elevated BUN, with possible etiologies including peptic ulcer disease, gastritis, esophagitis, AVM or other possible etiologies. Hold off on anticoagulation, hold NSAIDs. Will plan further evaluation with upper endoscopy. Status post upper endoscopy with finding of large 3 cm duodenal ulcer with oozing status post epinephrine injection and clip placement. Liter of coffee- ground fluid also noted in the stomach. Continue with monitoring for bleeding. General surgery consulted. Continue with Protonix 40 mg twice a day. Current Visit: Yes Status: Acute Priority: High Code(s): K92.2 - GASTROINTESTINAL HEMORRHAGE, UNSPECIFIED SNOMED Code(s): 78339751 (2) Duodenal ulcer Current Visit: Yes Status: Acute Code(s): K26.9 - DUODENAL ULCER, UNSP ACUTE OR CHRONIC, W/O HEMOR OR PERF SNOMED Code(s): 06214966 (3) Anemia Current Visit: Yes Status: Acute Priority: Medium Code(s): D64.9 - ANEMIA, UNSPECIFIED SNOMED Code(s): 351358931 (4) Sepsis Current Visit: Yes Status: Acute Priority: High Code(s): A41.9 - SEPSIS, UNSPECIFIED ORGANISM SNOMED Code(s): 23174669 (5) Thrombocytopenia Current Visit: Yes Status: Acute Priority: Medium Code(s): D69.6 - THROMBOCYTOPENIA, UNSPECIFIED SNOMED Code(s): 489707369 (6) UTI (urinary tract infection) Current Visit: Yes Status: Acute Priority: High Code(s): N39.0 - URINARY TRACT INFECTION, SITE NOT SPECIFIED SNOMED Code(s): 22403013 Plan: 1. Continue symptomatic and supportive care 2. Daily CBC, transfuse for hemoglobin less than 7 3. Avoid NSAIDs 4. Protonix 40 mg twice daily 5. General surgery consulted for bleeding ulcer 6. Continue with clear liquid diet today, then advance as tolerated per general surgery Thank you for allowing us to participate in the care of the patient, the GI service will sign off, gastroenterology will not be available at the hospital t his weekend and through next week. If further evaluation by gastroenterology is required the patient will need transfer as per the primary team's discretion. Dr. Maria Teresa Kulkarni I agree with the dictator's note, documented as a scribe by Daisy Patino.
--- NOTE | 2023-12-04 12:03 | P.GSCN ---
History of Present Illness Consult date: 12/04/23 History of present illness: CHIEF COMPLAINT: Fall HISTORY OF PRESENT ILLNESS: This is a 82-year-old female who presented to the ER with complaints of weakness and fall. She was found to have evidence of UTI with sepsis with right ureteral obstruction status post ureteral stent with urology service. During her hospitalization patient developed black stools. She did have a drop in her hemoglobin. Hemoglobin at admission was 13.9 on 11/27 and had trended down to 8.2 over the last 4 days during her hospitalization. Patient has not required any blood transfusions. She had an EGD completed yesterday with GI service that reported a 3 cm large duodenal ulcer at the duodenal sweep with oozing and a clot. She is status post epinephrine injection and clip. Patient did have bloody bowel movements yesterday evening. But since 10:00 has had no further bowel movements or bleeding. Hemoglobin stable at 8.2. She is currently in the ICU. She is on IV Protonix. Surgical service consulted regarding the duodenal ulcer. Patient denies any prior abdominal surgeries. She does have history of daily NSAID use. Patient seen and examined with Dr. Vincent PAST MEDICAL HISTORY: See below PAST SURGICAL HISTORY: See below MEDICATIONS: See below ALLERGIES: See below SOCIAL HISTORY: No illicit drug use. REVIEW OF SYSTEMS: CONSTITUTIONAL: Denies fever or chills. HEENT: Denies blurred vision, vision changes, or eye pain. Denies hemoptysis CARDIOVASCULAR: Denies chest pain or pressure. RESPIRATORY: No shortness of breath. GASTROINTESTINAL: See HPI for pertinent findings HEMATOLOGIC: Denies bleeding disorders. GENITOURINARY: Denies any blood in urine or increased urinary frequency. SKIN: Denies pruitis. Denies rash. PHYSICAL EXAM: VITAL SIGNS: Reviewed GENERAL: Well-developed in no acute distress. ABDOMEN: Soft. Nondistended. Nontender NEUROLOGIC: Alert and oriented. Cranial nerves II through XII grossly intact. LABORATORY DATA: WBC 13.7 Hgb 13.9 on admission, 11/27. Is trended downwards over the last 4 days to hemoglobin of 8.2. Platelets 98 Sodium 138 potassium 3.5 creatinine 0.57 IMAGING: CT scan abdomen pelvis from 11/29/2023 reports partial obstructing 3 mm right proximal ureter stone. No hydronephrosis. Hepatic steatosis. Hysterectomy. Diverticulosis. ASSESSMENT: 1. Large duodenal ulcer status post EGD with epinephrine injection and clipping 2. UTI with sepsis 3. Right ureteral stone status post stent placement by urology 4. Thrombocytopenia PLAN: -No surgical intervention planned -Surgical service will remain on standby -Continue IV Protonix twice daily -Continue to monitor hemoglobin -Continue to monitor for any signs or symptoms of bleeding Physician Engine Pilot note has been reviewed by physician. Signing provider agrees with the documented findings, assessment, and plan of care. Attestation Patient seen and examined at bedside. Consult was placed secondary to GI bleed with finding of large duodenal ulcer. She is status post EGD with epinephrine injection and clipping per gastroenterology. Hemoglobin is stable in the eights. No further GI bleeding has been noted since 10 PM last night. Patient states that she feels comfortable. Will continue to follow currently, no plan for acute surgical intervention. Alfonso Vincent DO Past Medical History Past Medical History: Hyperlipidemia, Hypertension, Osteoarthritis (OA) History of Any Multi-Drug Resistant Organisms: None Reported Past Surgical History: Breast Surgery Additional Past Surgical History / Comment(s): GROWTH REMOVED- skin lesions. Benign right breast excisional biopsy Past Anesthesia/Blood Transfusion Reactions: No Reported Reaction Past Psychological History: No Psychological Hx Reported Smoking Status: Never smoker Past Alcohol Use History: Rare Past Drug Use History: None Reported Medications and Allergies Home Medications Medication Instructions Recorded Confirmed Type Simvastatin [Zocor] 20 mg PO HS 11/29/23 11/29/23 History lisinopriL [Zestril] 10 mg PO DAILY 11/29/23 11/29/23 History Allergies Allergy/AdvReac Type Severity Reaction Status Date / Time No Known Allergies Allergy Verified 11/29/23 09:37 Surgical - Exam Osteopathic Statement: *. No significant issues noted on an osteopathic structural exam other than those noted in the History and Physical/Consult. Vital Signs Temp Pulse Resp BP Pulse Ox 102.8 F H 107 H 20 164/76 93 L 11/28/23 20:24 11/28/23 20:24 11/28/23 20:24 11/28/23 20:24 11/28/23 20:24 Results - Labs 12/04/23 18:15 12/04/23 05:47 Abnormal Lab Results - Last 24 Hours (Table) 12/03/23 12/03/23 12/03/23 Range/Units 11:55 18:34 23:45 WBC 15.0 H 15.4 H 15.9 H (3.8-10.6) k/uL RBC 3.39 L 2.95 L 2.96 L (3.80-5.40) m/uL Hgb 10.4 L 9.0 L 8.8 L (11.4-16.0) gm/dL Hct 29.9 L 26.2 L 26.8 L (34.0-46.0) % Plt Count 87 L 80 L 92 L (150-450) k/uL Neutrophils # 12.6 H (1.3-7.7) k/uL Lymphocytes # 0.9 L (1.0-4.8) k/uL Chloride (98-107) mmol/L BUN (7-17) mg/dL Glucose (74-99) mg/dL Calcium (8.4-10.2) mg/dL ALT (4-34) U/L Total Protein (6.3-8.2) g/dL Albumin (3.5-5.0) g/dL 12/04/23 12/04/23 Range/Units 05:47 05:47 WBC 13.7 H (3.8-10.6) k/uL RBC 2.67 L (3.80-5.40) m/uL Hgb 8.2 L (11.4-16.0) gm/dL Hct 24.0 L (34.0-46.0) % Plt Count 98 L (150-450) k/uL Neutrophils # (1.3-7.7) k/uL Lymphocytes # (1.0-4.8) k/uL Chloride 112 H (98-107) mmol/L BUN 21 H (7-17) mg/dL Glucose 111 H (74-99) mg/dL Calcium 7.9 L (8.4-10.2) mg/dL ALT 35 H (4-34) U/L Total Protein 4.5 L (6.3-8.2) g/dL Albumin 2.3 L (3.5-5.0) g/dL Diabetes panel 12/03/23 12/04/23 Range/Units 18:34 05:47 Sodium 138 (137-145) mmol/L Potassium 4.4 3.5 (3.5-5.1) mmol/L Chloride 112 H (98-107) mmol/L Carbon Dioxide 25 (22-30) mmol/L BUN 21 H (7-17) mg/dL Creatinine 0.57 (0.52-1.04) mg/dL Glucose 111 H (74-99) mg/dL Calcium 7.9 L (8.4-10.2) mg/dL AST 36 (14-36) U/L ALT 35 H (4-34) U/L Alkaline Phosphatase 66 (38-126) U/L Total Protein 4.5 L (6.3-8.2) g/dL Albumin 2.3 L (3.5-5.0) g/dL Calcium panel 12/04/23 Range/Units 05:47 Calcium 7.9 L (8.4-10.2) mg/dL Albumin 2.3 L (3.5-5.0) g/dL Pituitary panel 12/03/23 12/04/23 Range/Units 18:34 05:47 Sodium 138 (137-145) mmol/L Potassium 4.4 3.5 (3.5-5.1) mmol/L Chloride 112 H (98-107) mmol/L Carbon Dioxide 25 (22-30) mmol/L BUN 21 H (7-17) mg/dL Creatinine 0.57 (0.52-1.04) mg/dL Glucose 111 H (74-99) mg/dL Calcium 7.9 L (8.4-10.2) mg/dL Adrenal panel 12/03/23 12/04/23 Range/Units 18:34 05:47 Sodium 138 (137-145) mmol/L Potassium 4.4 3.5 (3.5-5.1) mmol/L Chloride 112 H (98-107) mmol/L Carbon Dioxide 25 (22-30) mmol/L BUN 21 H (7-17) mg/dL Creatinine 0.57 (0.52-1.04) mg/dL Glucose 111 H (74-99) mg/dL Calcium 7.9 L (8.4-10.2) mg/dL Total Bilirubin 0.8 (0.2-1.3) mg/dL AST 36 (14-36) U/L ALT 35 H (4-34) U/L Alkaline Phosphatase 66 (38-126) U/L Total Protein 4.5 L (6.3-8.2) g/dL Albumin 2.3 L (3.5-5.0) g/dL
--- NOTE | 2023-12-04 12:24 | P.PN ---
Subjective Progress Note Date: 12/04/23 11/30/2023 this is an 82-year-old female admitted with complicated UTI, bacteremia status post cystoscopy with placement of a right double-J catheter. Blood culture reporting E. coli, urine culture reporting gram-negative, maintained on ceftriaxone. Tmax 101.5, WBC 8. Denies nausea vomiting or diarrhea. Denies abdominal pain. Reports feeling minimally better. Denies chest pain, palpitations or shortness of breath. Maintaining O2 sats in the low 90s on 2 L nasal cannula. Elevated troponins, 0.175, 0.194, repeat EKG reported atrial fibrillation/flutter with heart rates in the 150s. Echo pending. Currently maintained on Cardizem and heparin drips. 12/01/2023 telemetry reporting fluctuating atrial fibrillation with heart rates as high as the 160s. Echo reporting left ventricular systolic function borderline normal, 50 to 55%, mild mitral and tricuspid regurgitation. Repeat EKG pending. Cardizem drip discontinued, beta-edu increased. Anticoagulation on hold, labs performed later in the morning yesterday reported decrease in platelets to 45. urine culture reporting E. coli, blood culture reporting E. coli, molecular D, maintained on ceftriaxone, as per ID. Tmax 101, WBC within normal limits. Up to bathroom with walker and PT, tolerated exertion well. Maintaining O2 sats in the 90s on 3 L nasal cannula. 12/02/2023 maintained on ceftriaxone, Tmax 101.1, normal WBC. Requiring 4 L nasal cannula to maintain O2 sats in the 90s. Potassium 3.3, magnesium 1.9. Telemetry reporting sinus rhythm throughout the night. Remains off of anticoagulation secondary to thrombocytopenia, platelets increased to 57. 12/03/2023 patient was transferred into the ICU last night secondary to symptomatic GI bleed, hypotension. Reports 3 black bowel movements, positive occult blood. Evaluated by GI and patient is scheduled for EGD tomorrow. Hemoglobin 9.6, platelets 65. Electrolytes and renal function stable. Continues on ceftriaxone for E. coli UTI and bacteremia. Afebrile, WBC 11.6. Chest x-ray reports unchanged with upper lobe patchy infiltrates, right greater than left .maintaining O2 sats in the 90s on 2 L nasal cannula. Receiving potassium supplements as per ICU replacement protocol. Denies chest pain, palpitations or shortness of breath. Complains of mild nausea. 12/04/2023 underwent EGD yesterday, reporting 3 cm large duodenal ulcer status post epinephrine injection and clipping, 1 L of coffee-ground fluid aspirated from the stomach. No further bleeding. General surgery consulted/on standby.maintained on IV Protonix twice daily, serial CBCs. Hemoglobin currently 8.2, platelets 98. Tolerating clear liquid diet, denies nausea, vomiting .denies abdominal pain .renal function stable. Objective - Vital Signs Vital signs: Vital Signs Temp 98.4 F 12/04/23 08:00 Pulse 70 12/04/23 09:00 Resp 19 12/04/23 09:00 BP 113/53 12/04/23 09:00 Pulse Ox 96 12/04/23 09:00 FiO2 Intake & Output 12/03/23 12/04/23 12/04/23 18:59 06:59 18:59 Intake Total 750 120 290 Output Total 250 550 450 Balance 500 -430 -160 Weight 74.7 kg 74.7 kg Intake: IV 750 50 Potassium Chloride 10 meq 400 In Water For Injection 1 100ml.bag @ 100 mls/hr IVPB Q1HR [facility] Rx#: [id number] cefTRIAXone 2 gm In 50 50 Sodium Chloride 0.9% 50 ml @ 100 mls/hr IVPB Q24HR [facility] Rx#:[id number] Oral 120 240 Output: Urine 250 550 450 Other: Voiding Method Bedpan Bedpan Bedpan # Voids 1 1 # Bowel Movements 2 1 - Exam GENERAL: alert and oriented x3, sitting up in bed, no acute distress. HEENT: Normocephalic, pupils are round and equal, Conjunctiva normal. CARDIOVASCULAR: S1 and S2 present. Regular rate and rhythm ,no murmurs, rubs, o r gallops. PULMONARY: Unlabored, equal air entry, essentially clear to auscultation ABDOMEN: Soft, nontender, nondistended, no guarding, no rigidity, normoactive bowel sounds. EXTREMITIES: No cyanosis, clubbing, or pedal edema. NEUROLOGICAL: Gross neurological examination did not reveal any focal deficits. SKIN: No rashes noted, warm and dry. - Labs CBC & Chem 7: 12/04/23 05:47 12/04/23 05:47 Labs: Abnormal Lab Results - Last 24 Hours (Table) 12/03/23 12/03/23 12/03/23 Range/Units 11:55 18:34 23:45 WBC 15.0 H 15.4 H 15.9 H (3.8-10.6) k/uL RBC 3.39 L 2.95 L 2.96 L (3.80-5.40) m/uL Hgb 10.4 L 9.0 L 8.8 L (11.4-16.0) gm/dL Hct 29.9 L 26.2 L 26.8 L (34.0-46.0) % Plt Count 87 L 80 L 92 L (150-450) k/uL Neutrophils # 12.6 H (1.3-7.7) k/uL Lymphocytes # 0.9 L (1.0-4.8) k/uL Chloride (98-107) mmol/L BUN (7-17) mg/dL Glucose (74-99) mg/dL Calcium (8.4-10.2) mg/dL ALT (4-34) U/L Total Protein (6.3-8.2) g/dL Albumin (3.5-5.0) g/dL 12/04/23 12/04/23 Range/Units 05:47 05:47 WBC 13.7 H (3.8-10.6) k/uL RBC 2.67 L (3.80-5.40) m/uL Hgb 8.2 L (11.4-16.0) gm/dL Hct 24.0 L (34.0-46.0) % Plt Count 98 L (150-450) k/uL Neutrophils # (1.3-7.7) k/uL Lymphocytes # (1.0-4.8) k/uL Chloride 112 H (98-107) mmol/L BUN 21 H (7-17) mg/dL Glucose 111 H (74-99) mg/dL Calcium 7.9 L (8.4-10.2) mg/dL ALT 35 H (4-34) U/L Total Protein 4.5 L (6.3-8.2) g/dL Albumin 2.3 L (3.5-5.0) g/dL Assessment and Plan Assessment: Sepsis present on admission secondary to complicated UTI and bacteremia with E. coli, sensitive to ceftriaxone Acute GI bleed status post EGD reporting large duodenal ulcer, status post epinephrine and clipping Right ureteral calculus with obstruction, right pyelonephrosis status post cystoscopy, placement of double-J catheter right Acute hypoxic respiratory failure secondary to the above Acute CHF exacerbation, diastolic dysfunction New onset paroxysmal atrial fibrillation, anticoagulation on hold secondary to thrombocytopenia Acute on chronic thrombocytopenia Acute GI bleed Elevated troponins, NSTEMI type II Generalized weakness, mechanical fall Hemoglobin A1c 6.1 Plan: Continue on current medication regimen ,monitoring and symptomatic treatment. Maintain PPI. Serial CBCs .maintain IV antibiotics. Electrolyte replacement as per ICU replacement protocols. General surgery on standby. Cardiology recommending no anticoagulation related to atrial fibrillation occurred with bacteremia and sepsis. The impression and plan of care has been dictated as directed. : I performed a history and examination of this patient, discussed the same with the dictator. I agree with the dictator's note ,documented as a scribe. Any additional findings or plans will be noted.
--- NOTE | 2023-12-04 15:34 | P.PN ---
Subjective Progress Note Date: 12/04/23 Principal diagnosis: Reason for follow-up is complicated UTI and bacteremia Patient is a 82-year-old female with a past medical history significant for hypertension hyperlipidemia osteoarthritis presenting to the hospital after pending the patient did have a fall patient has been complaining of feeling very weak and has been diagnosed with sepsis secondary to complicated UTI in this patient who is status post cystoscopy with right ureteral stent placement and the blood culture came positive with E. coli. On today's evaluation that is 12/04/2023, Patient is afebrile this morning patient denies having any chest pain shortness of breath or cough, the patient is currently on 2 L nasal cannula oxygen patient denies any abdominal pain no diarrhea no nausea no vomiting, no further bleeding per rectum and mention no bowel movement. Patient white count is down to 13.7, creatinine 0.57 Objective - Vital Signs Vital signs: Vital Signs Temp 97.1 F L 12/04/23 13:38 Pulse 71 12/04/23 13:38 Resp 16 12/04/23 13:38 BP 126/71 12/04/23 13:38 Pulse Ox 99 12/04/23 13:38 FiO2 Intake & Output 12/03/23 12/04/23 12/04/23 18:59 06:59 18:59 Intake Total 750 120 290 Output Total 250 550 450 Balance 500 -430 -160 Weight 74.7 kg 74.7 kg Intake: IV 750 50 Potassium Chloride 10 meq 400 In Water For Injection 1 100ml.bag @ 100 mls/hr IVPB Q1HR [facility] Rx#: [id number] cefTRIAXone 2 gm In 50 50 Sodium Chloride 0.9% 50 ml @ 100 mls/hr IVPB Q24HR [facility] Rx#:[id number] Oral 120 240 Output: Urine 250 550 450 Other: Voiding Method Bedpan Bedpan Bedpan # Voids 1 1 # Bowel Movements 2 1 - Exam GENERAL DESCRIPTION: An elderly female lying in bed in no distress RESPIRATORY SYSTEM: Unlabored breathing , decreased breath sounds at bases HEART: S1 S2 regular rate and rhythm , ABDOMEN: Soft , no tenderness EXTREMITIES: No edema feet - Labs CBC & Chem 7: 12/04/23 05:47 12/04/23 05:47 Labs: Abnormal Lab Results - Last 24 Hours (Table) 11/30/23 12/03/23 12/03/23 Range/Units 10:47 18:34 23:45 WBC 15.4 H 15.9 H (3.8-10.6) k/uL RBC 2.95 L 2.96 L (3.80-5.40) m/uL Hgb 9.0 L 8.8 L (11.4-16.0) gm/dL Hct 26.2 L 26.8 L (34.0-46.0) % Plt Count 80 L 92 L (150-450) k/uL Chloride (98-107) mmol/L BUN (7-17) mg/dL Glucose (74-99) mg/dL Calcium (8.4-10.2) mg/dL ALT (4-34) U/L Total Creatine Kinase 426 H (30-223) u/L Total Protein (6.3-8.2) g/dL Albumin (3.5-5.0) g/dL 12/04/23 12/04/23 Range/Units 05:47 05:47 WBC 13.7 H (3.8-10.6) k/uL RBC 2.67 L (3.80-5.40) m/uL Hgb 8.2 L (11.4-16.0) gm/dL Hct 24.0 L (34.0-46.0) % Plt Count 98 L (150-450) k/uL Chloride 112 H (98-107) mmol/L BUN 21 H (7-17) mg/dL Glucose 111 H (74-99) mg/dL Calcium 7.9 L (8.4-10.2) mg/dL ALT 35 H (4-34) U/L Total Creatine Kinase (30-223) u/L Total Protein 4.5 L (6.3-8.2) g/dL Albumin 2.3 L (3.5-5.0) g/dL Assessment and Plan (1) Sepsis Current Visit: Yes Status: Acute Priority: High Code(s): A41.9 - SEPSIS, UNSPECIFIED ORGANISM SNOMED Code(s): 06302226 (2) UTI (urinary tract infection) Current Visit: Yes Status: Acute Priority: High Code(s): N39.0 - URINARY TRACT INFECTION, SITE NOT SPECIFIED SNOMED Code(s): 14238598 Plan: 1patient presented to hospital with sepsis in this patient who did have fever tachycardia meeting currently for SIRS source likely urinary patient did have lower abdominal pain positive UA and left-sided ureteral stone concerning for possible complicated UTI likely from enteric gram-negative pathogen 2-patient is status post cystoscopy and right ureteral stent placement by urology 3 blood culture as well as urine culture is growing E. coli both the sensitive to ceftriaxone 4-patient did have a GI bleed but the patient did have a EGD and epinephrine injection of the duodenal ulcer, patient white count is trending down 5we will continue Rocephin and monitor clinical course closely Dictation was produced using [employer] dictation software. please excuse any grammatical, word or spelling errors. Time with Patient: Less than 30
[2023-12-04 18:29] LABS: Basophils # (A) 0.1 k/uL (0-0.2); Basophils % (A) 1 %; Eosinophils # (A) 0.2 k/uL (0-0.7); Eosinophils % (A) 1 %; HCT 22.2 % (34.0-46.0); HGB 7.5 gm/dL (11.4-16.0); Lymphocytes # (A) 1.2 k/uL (1.0-4.8); Lymphocytes % (A) 9 %; MCH 30.2 pg (25.0-35.0); MCHC 33.5 g/dL (31.0-37.0); Mean Platelet Volume 10.9; Monocytes # (A) 0.9 k/uL (0-1.0); Monocytes % (A) 6 %; Neutrophils # (A) 11.2 k/uL (1.3-7.7); Neutrophils % (A) 80 %; Platelet Count 125 k/uL (150-450); RBC 2.47 m/uL (3.80-5.40); RDW 14.5 % (11.5-15.5)
[2023-12-05 09:40] LABS: HCT 20.2 % (37.2-46.3); MCH 30.7 pg (27.0-32.0); MCHC 34.2 g/dL (32.0-37.0); MCV 89.8 FL (80.0-97.0); Mean Platelet Volume 13.7 FL (9.5-12.2); NRBC Per 100 WBC 0.05 X 10*3/uL (0.00-0.01); Platelet Count 112 X 10*3/uL (140-440); RBC 2.25 X 10*6/uL (4.10-5.20); RDW 15.1 % (11.5-14.5); WBC 15.26 X 10*3/uL (4.50-10.00)
--- NOTE | 2023-12-05 10:48 | P.PN ---
Subjective Progress Note Date: 12/05/23 Principal diagnosis: Right ureteral calculus, UTI The patient underwent placement of a right ureteral stent on November 28. She remains afebrile. She underwent EGD on December 02 and was found to have a duodenal ulcer. She appears comfortable and denies nausea. She also denies d ysuria and hematuria. Urine and blood cultures both show E. coli, sensitive to ceftriaxone. Objective - Vital Signs Vital signs: Vital Signs Temp 98.3 F 12/05/23 07:40 Pulse 69 12/05/23 07:40 Resp 16 12/05/23 07:40 BP 120/67 12/05/23 07:40 Pulse Ox 99 12/05/23 07:40 FiO2 Intake & Output 12/04/23 12/05/23 12/05/23 18:59 06:59 18:59 Intake Total 870 120 Output Total 450 Balance 420 120 Weight 74.7 kg Intake: IV 50 cefTRIAXone 2 gm In 50 Sodium Chloride 0.9% 50 ml @ 100 mls/hr IVPB Q24HR [facility] Rx#:[id number] Oral 820 120 Output: Urine 450 Other: Voiding Method Bedpan Toilet # Voids 3 1 # Bowel Movements 0 - Constitutional General appearance: Present: average body habitus, cooperative, no acute distress - Psychiatric Psychiatric: Present: A&O x's 3 - Labs CBC & Chem 7: 12/05/23 06:24 12/05/23 06:24 Labs: Abnormal Lab Results - Last 24 Hours (Table) 11/30/23 12/04/23 12/05/23 Range/Units 10:47 18:15 06:24 WBC 14.0 H 15.26 H (3.8-10.6) k/uL RBC 2.47 L 2.25 L (3.80-5.40) m/uL Hgb 7.5 L 6.9 A* (11.4-16.0) gm/dL Hct 22.2 L 20.2 L (34.0-46.0) % RDW 15.1 H (11.5-14.5) % Plt Count 125 L 112 L (150-450) k/uL MPV 13.7 H (9.5-12.2) FL Neutrophils # 11.2 H (1.3-7.7) k/uL NRBC/100 WBC Diff 0.05 H (0.00-0.01) X 10*3/uL Total Creatine Kinase 426 H (30-223) u/L Assessment and Plan (1) UTI (urinary tract infection) Current Visit: Yes Status: Acute Priority: High Code(s): N39.0 - URINARY TRACT INFECTION, SITE NOT SPECIFIED SNOMED Code(s): 01652209 (2) Ureteral stone Current Visit: Yes Status: Acute Priority: High Code(s): N20.1 - CALCULUS OF URETER SNOMED Code(s): 42683048 Plan: - Continue Rocephin. - Patient is urologically stable for discharge on appropriate oral antibiotics. Arrangements will be made for her to undergo elective cystoscopy, right ureteral stent removal, and ureteroscopic removal of the right ureteral calculus. Please notify us if we can be of any further assistance during this hospitalization.
--- NOTE | 2023-12-05 10:51 | P.PN ---
Subjective Progress Note Date: 12/05/23 This is an 82-year-old female patient with a known history of hypertension, hyperlipidemia, osteoarthritis, lifelong non-smoker. She presented here to the emergency room back on 11/28/2023 after sustaining a fall secondary to weakness for several days prior to her arrival. No injury. Chest x-ray at that time revealed no acute pulmonary process. This with obstruction with urinary tract infection secondary to E. coli and right pyelonephritis. She did undergo cystoscopy with placement of a double-J catheter on the right on 11/29/2023. Blood cultures were positive for E. coli as well. Echocardiogram revealed preserved left ventricular systolic function with ejection fraction of 50 to 55%. No significant valvular abnormalities. A follow-up chest x-ray on 11/30/2023 revealed perihilar consolidations concerning for pneumonia. Small left pleural effusion. Still hypoxemic with oxygen at 4 L/min per nasal cannula. Temperature 101.1 today. She is hemodynamically stable. We are consulted today 12/02/2023. Currently seen sitting up in bed. Awake and alert in no acute distress. White count 8.3. Hemoglobin 12.2. Platelets 57,000. Sodium 140. Potassium 3.3. Bicarb 30. BUN 22. Creatinine 0.63. She is currently on ceftriaxone. The patient is seen today December 03, 2023 in follow-up in the intensive care unit. She was transferred here due to episodes of GI bleeding, atrial fibril lation, hypotension. Nightly, she is sitting up in bed. Awake and alert in no acute distress. Maintaining O2 saturations in the 90s on 2 L/min per nasal cannula. She is afebrile. Hemodynamically stable. She did have a bloody bowel movement again this morning. Urine cultures positive for E. coli. Blood cultures positive for E. coli. White count 11.6. Hemoglobin 9.6. Platelets 65,000. Sodium 140. Potassium 3.5. Bicarb 26. BUN 27. Creatinine 0.56. Glucose 134. She remains on ceftriaxone. Chest x-ray shows upper patchy infiltrates on the right greater than left. Unchanged. The patient is seen today December 04, 2023 in follow-up in the intensive care unit. She is currently awake and alert in no acute distress. Maintaining O2 saturations in the 90s on 3 L/min per nasal cannula. She is afebrile. Hemodynamically stable. She did undergo an EGD yesterday and was found to have a duodenal ulcer that required epinephrine and clipping. No further bleeding. 1 L of coffee-ground fluid was aspirated from the stomach. Blood and urine cultures are positive for E. coli. White count 13.7. Hemoglobin 8.2. Platelets 98. Sodium 138. Potassium 3.5. Bicarb 25. BUN 21. Creatinine 0.57. Glucose 111. She remains on IV Protonix. Continued on bronchodilators. Continued on ceftriaxone. The patient is seen today December 05, 2023 in follow-up on the regular medical floor. She was transferred out of the intensive care unit yesterday. She remains awake and alert in no acute distress. She denies any worsening shortness of breath, cough or congestion. She is afebrile. Hemodynamically stable. She is maintaining O2 saturations in the 90s on 2 L/min per nasal cannul a. No IV fluids. Her urine and blood cultures are positive for E. coli. She remains on ceftriaxone. White count 15.2. Hemoglobin 6.9. Platelets 112. Potassium 3.6. She was found to have a large duodenal ulcer that required epinephrine injection and clipping on 12/03/2023. Plan is for 1 unit of packed red blood cells today. Objective - Vital Signs Vital signs: Vital Signs Temp 98.3 F 12/05/23 07:40 Pulse 69 12/05/23 07:40 Resp 16 12/05/23 07:40 BP 120/67 12/05/23 07:40 Pulse Ox 99 12/05/23 07:40 FiO2 Intake & Output 12/04/23 12/05/23 12/05/23 18:59 06:59 18:59 Intake Total 870 120 Output Total 450 Balance 420 120 Weight 74.7 kg Intake: IV 50 cefTRIAXone 2 gm In 50 Sodium Chloride 0.9% 50 ml @ 100 mls/hr IVPB Q24HR [facility] Rx#:[id number] Oral 820 120 Output: Urine 450 Other: Voiding Method Bedpan Toilet # Voids 3 1 # Bowel Movements 0 - Exam GENERAL EXAM: Alert, 82-year-old female, resting in bed, on 2 L nasal cannula, in no apparent distress. HEAD: Normocephalic. EYES: Normal reaction of pupils, equal size. NOSE: Clear with pink turbinates. THROAT: No erythema or exudates. NECK: No masses, no JVD. CHEST: No chest wall deformity. LUNGS: Equal air entry with no rhonchi, wheeze or crackles. CVS: S1 and S2 normal with no audible murmur, regular rhythm. ABDOMEN: No hepatosplenomegaly, normal bowel sounds, no guarding or rigidity. SPINE: No scoliosis or deformity SKIN: No rashes CENTRAL NERVOUS SYSTEM: No focal deficits, tone is normal in all 4 extremities. EXTREMITIES: There is no peripheral edema. No clubbing, no cyanosis. Peripheral pulses are intact. - Labs CBC & Chem 7: 12/05/23 06:24 12/05/23 06:24 Labs: Abnormal Lab Results - Last 24 Hours (Table) 11/30/23 12/04/23 12/05/23 Range/Units 10:47 18:15 06:24 WBC 14.0 H 15.26 H (3.8-10.6) k/uL RBC 2.47 L 2.25 L (3.80-5.40) m/uL Hgb 7.5 L 6.9 A* (11.4-16.0) gm/dL Hct 22.2 L 20.2 L (34.0-46.0) % RDW 15.1 H (11.5-14.5) % Plt Count 125 L 112 L (150-450) k/uL MPV 13.7 H (9.5-12.2) FL Neutrophils # 11.2 H (1.3-7.7) k/uL NRBC/100 WBC Diff 0.05 H (0.00-0.01) X 10*3/uL Total Creatine Kinase 426 H (30-223) u/L Assessment and Plan Assessment: Generalized weakness and fall secondary to acute urinary tract infection, sepsis Urinary tract infection secondary to E. coli. Remains on ceftriaxone Bacteremia secondary to E. coli Right renal calculus status post double-J stent catheter placement on 11/29/2023 Acute hypoxemic respiratory failure secondary to acute diastolic congestive heart failure versus possible pneumonia Acute GI bleed, GD on 12/03/2023 revealed a large duodenal ulcer that required epinephrine and clipping. Hemoglobin 6.9 today December 05, 2023 requiring 1 unit of packed red blood cells New onset proximal atrial fibrillation, not on anticoagulation due to thrombocytopenia Acute on chronic thrombocytopenia Lifelong non-smoker History of diastolic congestive heart failure Hypertension Hyperlipidemia Plan: The patient was seen and evaluated Labs and medications reviewed Requiring 1 unit of packed red blood cells today Surgical services are following Titrate down/off the oxygen as tolerated Remains on ceftriaxone per ID service This patient was seen independently by the pulmonary nurse practitioner addressing pulmonary issues I have personally seen and examined the patient, performed the documentation and the assessment and plan as written. Number of minutes spent on the visit: 24.
[2023-12-05 11:07] LABS: Basophils # (M) 0 X 10*3/uL (0.00-0.10); Eosinophils # (M) 0.15 X 10*3/uL (0.04-0.35); HGB 6.9 g/dL (12.0-15.0); Lymphocytes # (M) 1.83 X 10*3/uL (0.90-5.00); Metamyelocytes % 1 % (0-0); Monocytes # (M) 0.76 X 10*3/uL (0.20-1.00); Neutrophils # (M) 12.36 X 10*3/uL (1.80-7.70); Neutrophils % (M) 81 %; RBC Morphology Normal (Normal)
--- NOTE | 2023-12-05 11:19 | P.PN ---
Progress Note - Text Progress Note Date: 12/05/23 NEYEO. Patient denies any episodes of rectal bleeding. Tolerating CLD. Hgb is 6.9 this morning VSS General-NAD Abdomen-soft, NTND ASSESSMENT: 1. Large duodenal ulcer status post EGD with epinephrine injection and clipping 2. UTI with sepsis 3. Right ureteral stone status post stent placement by urology 4. Thrombocytopenia PLAN: -Recommend transfusing patient 2 units PRBCs -Maintain CLD -Trend Hgb -Will continue to follow patient closely Gab Her DO [facility] [phone]
--- NOTE | 2023-12-05 13:12 | P.PN ---
Subjective 11/30/2023 this is an 82-year-old female admitted with complicated UTI, bacteremia status post cystoscopy with placement of a right double-J catheter. Blood culture reporting E. coli, urine culture reporting gram-negative, maintained on ceftriaxone. Tmax 101.5, WBC 8. Denies nausea vomiting or diarrhea. Denies abdominal pain. Reports feeling minimally better. Denies chest pain, palpitations or shortness of breath. Maintaining O2 sats in the low 90s on 2 L nasal cannula. Elevated troponins, 0.175, 0.194, repeat EKG reported atrial fibrillation/flutter with heart rates in the 150s. Echo pending. Currently maintained on Cardizem and heparin drips. 12/01/2023 telemetry reporting fluctuating atrial fibrillation with heart rates as high as the 160s. Echo reporting left ventricular systolic function borderline normal, 50 to 55%, mild mitral and tricuspid regurgitation. Repeat EKG pending. Cardizem drip discontinued, beta-edu increased. Anticoagulation on hold, labs performed later in the morning yesterday reported decrease in platelets to 45. urine culture reporting E. coli, blood culture reporting E. coli, molecular D, maintained on ceftriaxone, as per ID. Tmax 101, WBC within normal limits. Up to bathroom with walker and PT, tolerated exertion well. Maintaining O2 sats in the 90s on 3 L nasal cannula. 12/02/2023 maintained on ceftriaxone, Tmax 101.1, normal WBC. Requiring 4 L nasal cannula to maintain O2 sats in the 90s. Potassium 3.3, magnesium 1.9. Telemetry reporting sinus rhythm throughout the night. Remains off of anticoagulation secondary to thrombocytopenia, platelets increased to 57. 12/03/2023 patient was transferred into the ICU last night secondary to symptomatic GI bleed, hypotension. Reports 3 black bowel movements, positive occult blood. Evaluated by GI and patient is scheduled for EGD tomorrow. Hemoglobin 9.6, platelets 65. Electrolytes and renal function stable. Continues on ceftriaxone for E. coli UTI and bacteremia. Afebrile, WBC 11.6. Chest x-ray reports unchanged with upper lobe patchy infiltrates, right greater than left .maintaining O2 sats in the 90s on 2 L nasal cannula. Receiving potassium supplements as per ICU replacement protocol. Denies chest pain, p alpitations or shortness of breath. Complains of mild nausea. 12/04/2023 underwent EGD yesterday, reporting 3 cm large duodenal ulcer status post epinephrine injection and clipping, 1 L of coffee-ground fluid aspirated from the stomach. No further bleeding. General surgery consulted/on standby. maintained on IV Protonix twice daily, serial CBCs. Hemoglobin currently 8.2, platelets 98. Tolerating clear liquid diet, denies nausea, vomiting .denies abdominal pain .renal function stable. 12/04 Patient feels generally tired with no specific symptoms Hemoglobin dropped 7.5 down to 6.9. She is getting 1 unit of blood transfusion She has leukocytosis 14-15,000 and she is currently covered with ceftriaxone for E. coli in the urine and blood culture. Repeat blood cultures pending Continue with Protonix Avoid NSAIDs and anticoagulation She is status post EGD and epinephrine injection to large duodenal ulcer of 3 cm. We are going to hold aspirin 81 mg tomorrow because of her severe anemia while continuing on IV Protonix 40 mg twice daily Objective - Vital Signs Vital signs: Vital Signs Temp 98.6 F 12/05/23 12:55 Pulse 71 12/05/23 12:55 Resp 18 12/05/23 12:55 BP 145/73 12/05/23 12:55 Pulse Ox 98 12/05/23 12:55 FiO2 Intake & Output 12/04/23 12/05/23 12/05/23 18:59 06:59 18:59 Intake Total 870 120 0 Output Total 450 Balance 420 120 0 Weight 74.7 kg Intake: IV 50 cefTRIAXone 2 gm In 50 Sodium Chloride 0.9% 50 ml @ 100 mls/hr IVPB Q24HR [facility] Rx#:[id number] Oral 820 120 Blood Product 0 Rc As-1 Unit 0 [id number] Output: Urine 450 Other: Voiding Method Bedpan Toilet # Voids 3 1 # Bowel Movements 0 - Exam GENERAL: The patient is alert and oriented x3, not in any acute distress. Well developed, well nourished. HEENT: Pupils are round and equally reacting to light. EOMI. No scleral icterus. No conjunctival pallor. Normocephalic, atraumatic. No pharyngeal erythema. No thyromegaly. CARDIOVASCULAR: S1 and S2 present. No murmurs, rubs, or gallops. PULMONARY: Chest is clear to auscultation, no wheezing , no crackles. ABDOMEN: Soft, nontender, nondistended, normoactive bowel sounds. No palpable organomegaly. MUSCULOSKELETAL: No joint swelling or deformity. EXTREMITIES: No cyanosis, clubbing, or pedal edema. NEUROLOGICAL: Gross neurological examination did not reveal any focal deficits. SKIN: No rashes. no petechiae. - Labs CBC & Chem 7: 12/05/23 06:24 12/05/23 06:24 Labs: Abnormal Lab Results - Last 24 Hours (Table) 11/30/23 12/04/23 12/05/23 Range/Units 10:47 18:15 06:24 WBC 14.0 H 15.26 H (3.8-10.6) k/uL RBC 2.47 L 2.25 L (3.80-5.40) m/uL Hgb 7.5 L 6.9 A* (11.4-16.0) gm/dL Hct 22.2 L 20.2 L (34.0-46.0) % RDW 15.1 H (11.5-14.5) % Plt Count 125 L 112 L (150-450) k/uL MPV 13.7 H (9.5-12.2) FL Neutrophils # 11.2 H (1.3-7.7) k/uL Neutrophils # (Manual) 12.36 H (1.80-7.70) X 10*3/uL NRBC/100 WBC Diff 0.05 H (0.00-0.01) X 10*3/uL Total Creatine Kinase 426 H (30-223) u/L Crossmatch 12/05/23 Range/Units 10:39 WBC (3.8-10.6) k/uL RBC (3.80-5.40) m/uL Hgb (11.4-16.0) gm/dL Hct (34.0-46.0) % RDW (11.5-14.5) % Plt Count (150-450) k/uL MPV (9.5-12.2) FL Neutrophils # (1.3-7.7) k/uL Neutrophils # (Manual) (1.80-7.70) X 10*3/uL NRBC/100 WBC Diff (0.00-0.01) X 10*3/uL Total Creatine Kinase (30-223) u/L Crossmatch See Detail Microbiology - Last 24 Hours (Table) 12/04/23 08:42 Blood Culture - Preliminary Blood Assessment and Plan Assessment: Sepsis present on admission secondary to complicated UTI and bacteremia with E. coli, sensitive to ceftriaxone Acute GI bleed status post EGD reporting large duodenal ulcer about 3 cm, status post epinephrine and clipping Acute blood loss anemia secondary to above status post blood transfusion x 1 unit on 12/04 Right ureteral calculus with obstruction, right pyelonephrosis status post cystoscopy, placement of double-J catheter right Acute hypoxic respiratory failure secondary to the above Acute CHF exacerbation, diastolic dysfunction New onset paroxysmal atrial fibrillation, anticoagulation on hold secondary to thrombocytopenia Acute on chronic thrombocytopenia Acute GI bleed Elevated troponins, NSTEMI type II Generalized weakness, mechanical fall Hemoglobin A1c 6.1 Plan: Continue ceftriaxone Follow-up repeat blood culture Infectious disease team on the case Continue with IV Protonix Keep holding aspirin on 12/05 and may be considered to be resumed based on his hemoglobin level Patient status 1 unit of blood transfusion today. Keep monitoring hemoglobin Several consultants on the case including urology, infectious disease, general surgery, cardiology and pulmonary. GI service signed off the case, no GI coverage this weekend in this facility My p labs and medication were reviewed.. Continue same treatment. Continue with symptomatic treatment. Resume home medication. Monitor labs and vitals. DVT and GI prophylaxis. Further recommendations as per clinical course of the patient DVT prophylaxis: Subcutaneous heparin no anticoagulation GI prophylaxis: Protonix PT/OT: Pending Prognosis is guarded
--- NOTE | 2023-12-05 14:53 | P.PN ---
Subjective Progress Note Date: 12/05/23 Principal diagnosis: Reason for follow-up is complicated UTI and bacteremia Patient is a 82-year-old female with a past medical history significant for hypertension hyperlipidemia osteoarthritis presenting to the hospital after pending the patient did have a fall patient has been complaining of feeling very weak and has been diagnosed with sepsis secondary to complicated UTI in this patient who is status post cystoscopy with right ureteral stent placement and the blood culture came positive with E. coli. On today's evaluation that is 12/05/2023,the patient denies any fever or any chills, patient is breathing comfortably on room air, the patient denies chest pain shortness of breath and no significant cough, patient denies abdominal pain, no nausea vomiting or diarrhea. Feeling better no new symptoms. Patient white count is 15.26, hemoglobin 6.9, creatinine 0.5 blood culture repeat has been negative so far Objective - Vital Signs Vital signs: Vital Signs Temp 98.3 F 12/05/23 07:40 Pulse 69 12/05/23 07:40 Resp 16 12/05/23 07:40 BP 120/67 12/05/23 07:40 Pulse Ox 99 12/05/23 07:40 FiO2 Intake & Output 12/04/23 12/05/23 12/05/23 18:59 06:59 18:59 Intake Total 870 120 Output Total 450 Balance 420 120 Weight 74.7 kg Intake: IV 50 cefTRIAXone 2 gm In 50 Sodium Chloride 0.9% 50 ml @ 100 mls/hr IVPB Q24HR [facility] Rx#:[id number] Oral 820 120 Output: Urine 450 Other: Voiding Method Bedpan Toilet # Voids 3 1 # Bowel Movements 0 - Exam GENERAL DESCRIPTION: An elderly female lying in bed in no distress RESPIRATORY SYSTEM: Unlabored breathing , decreased breath sounds at bases HEART: S1 S2 regular rate and rhythm , ABDOMEN: Soft , no tenderness EXTREMITIES: No edema feet - Labs CBC & Chem 7: 12/05/23 06:24 12/05/23 06:24 Labs: Abnormal Lab Results - Last 24 Hours (Table) 11/30/23 12/04/23 12/05/23 Range/Units 10:47 18:15 06:24 WBC 14.0 H 15.26 H (3.8-10.6) k/uL RBC 2.47 L 2.25 L (3.80-5.40) m/uL Hgb 7.5 L 6.9 A* (11.4-16.0) gm/dL Hct 22.2 L 20.2 L (34.0-46.0) % RDW 15.1 H (11.5-14.5) % Plt Count 125 L 112 L (150-450) k/uL MPV 13.7 H (9.5-12.2) FL Neutrophils # 11.2 H (1.3-7.7) k/uL Neutrophils # (Manual) 12.36 H (1.80-7.70) X 10*3/uL NRBC/100 WBC Diff 0.05 H (0.00-0.01) X 10*3/uL Total Creatine Kinase 426 H (30-223) u/L Crossmatch 12/05/23 Range/Units 10:39 WBC (3.8-10.6) k/uL RBC (3.80-5.40) m/uL Hgb (11.4-16.0) gm/dL Hct (34.0-46.0) % RDW (11.5-14.5) % Plt Count (150-450) k/uL MPV (9.5-12.2) FL Neutrophils # (1.3-7.7) k/uL Neutrophils # (Manual) (1.80-7.70) X 10*3/uL NRBC/100 WBC Diff (0.00-0.01) X 10*3/uL Total Creatine Kinase (30-223) u/L Crossmatch See Detail Assessment and Plan (1) Sepsis Current Visit: Yes Status: Acute Priority: High Code(s): A41.9 - SEPSIS, UNSPECIFIED ORGANISM SNOMED Code(s): 66921283 (2) UTI (urinary tract infection) Current Visit: Yes Status: Acute Priority: High Code(s): N39.0 - URINARY TRACT INFECTION, SITE NOT SPECIFIED SNOMED Code(s): 15355616 Plan: 1patient presented to hospital with sepsis in this patient who did have fever tachycardia meeting currently for SIRS source likely urinary patient did have lower abdominal pain positive UA and left-sided ureteral stone concerning for possible complicated UTI likely from enteric gram-negative pathogen 2-patient is status post cystoscopy and right ureteral stent placement by urology 3 blood culture as well as urine culture is growing E. coli both the sensitive to ceftriaxone 4-patient did have a GI bleed but the patient did have a EGD and epinephrine injection of the duodenal ulcer, patient white count is trending down 5patient is scheduled to get a blood transfusion because of low hemoglobin she is covered with Rocephin will be transition to oral Ceftin on discharge once cleared by the senior consultant Dictation was produced using [employer] dictation software. please excuse any grammatical, word or spelling errors. Time with Patient: Less than 30
[2023-12-05] MEDS: FERROUS SULFATE 325 MG TAB PO SCH (15:26)
--- NOTE | 2023-12-06 07:59 | P.PN ---
Subjective Progress Note Date: 12/06/23 This is an 82-year-old female patient with a known history of hypertension, hyperlipidemia, osteoarthritis, lifelong non-smoker. She presented here to the emergency room back on 11/28/2023 after sustaining a fall secondary to weakness for several days prior to her arrival. No injury. Chest x-ray at that time revealed no acute pulmonary process. This with obstruction with urinary tract infection secondary to E. coli and right pyelonephritis. She did undergo cystoscopy with placement of a double-J catheter on the right on 11/29/2023. Blood cultures were positive for E. coli as well. Echocardiogram revealed preserved left ventricular systolic function with ejection fraction of 50 to 55%. No significant valvular abnormalities. A follow-up chest x-ray on 11/30/2023 revealed perihilar consolidations concerning for pneumonia. Small left pleural effusion. Still hypoxemic with oxygen at 4 L/min per nasal cannula. Temperature 101.1 today. She is hemodynamically stable. We are consulted today 12/02/2023. Currently seen sitting up in bed. Awake and alert in no acute distress. White count 8.3. Hemoglobin 12.2. Platelets 57,000. Sodium 140. Potassium 3.3. Bicarb 30. BUN 22. Creatinine 0.63. She is currently on ceftriaxone. The patient is seen today December 03, 2023 in follow-up in the intensive care unit. She was transferred here due to episodes of GI bleeding, atrial fibril lation, hypotension. Nightly, she is sitting up in bed. Awake and alert in no acute distress. Maintaining O2 saturations in the 90s on 2 L/min per nasal cannula. She is afebrile. Hemodynamically stable. She did have a bloody bowel movement again this morning. Urine cultures positive for E. coli. Blood cultures positive for E. coli. White count 11.6. Hemoglobin 9.6. Platelets 65,000. Sodium 140. Potassium 3.5. Bicarb 26. BUN 27. Creatinine 0.56. Glucose 134. She remains on ceftriaxone. Chest x-ray shows upper patchy infiltrates on the right greater than left. Unchanged. The patient is seen today December 04, 2023 in follow-up in the intensive care unit. She is currently awake and alert in no acute distress. Maintaining O2 saturations in the 90s on 3 L/min per nasal cannula. She is afebrile. Hemodynamically stable. She did undergo an EGD yesterday and was found to have a duodenal ulcer that required epinephrine and clipping. No further bleeding. 1 L of coffee-ground fluid was aspirated from the stomach. Blood and urine cultures are positive for E. coli. White count 13.7. Hemoglobin 8.2. Platelets 98. Sodium 138. Potassium 3.5. Bicarb 25. BUN 21. Creatinine 0.57. Glucose 111. She remains on IV Protonix. Continued on bronchodilators. Continued on ceftriaxone. The patient is seen today December 05, 2023 in follow-up on the regular medical floor. She was transferred out of the intensive care unit yesterday. She remains awake and alert in no acute distress. She denies any worsening shortness of breath, cough or congestion. She is afebrile. Hemodynamically stable. She is maintaining O2 saturations in the 90s on 2 L/min per nasal cannul a. No IV fluids. Her urine and blood cultures are positive for E. coli. She remains on ceftriaxone. White count 15.2. Hemoglobin 6.9. Platelets 112. Potassium 3.6. She was found to have a large duodenal ulcer that required epinephrine injection and clipping on 12/03/2023. Plan is for 1 unit of packed red blood cells today. The patient is seen today December 06, 2023 in follow-up on the regular medical floor. She is resting comfortably in bed. Maintaining good O2 saturations in the 90s on room air. She did require 1 unit of packed red blood cells yesterday for hemoglobin of 6.9. Today's labs are pending. She remains on Rocephin. She has E. coli urinary tract infection and bacteremia. She is afebrile. Hemodynamically stable. Objective - Vital Signs Vital signs: Vital Signs Temp 98 F 12/06/23 07:47 Pulse 64 12/06/23 07:47 Resp 16 12/06/23 07:47 BP 136/70 12/06/23 07:47 Pulse Ox 96 12/06/23 07:47 FiO2 Intake & Output 12/05/23 12/06/23 12/06/23 18:59 06:59 18:59 Intake Total 890 Balance 890 Intake: Oral 580 Blood Product 310 Rc As-1 Unit 310 [id number] Other: Voiding Method Toilet Toilet # Voids 3 2 # Bowel Movements 1 - Exam GENERAL EXAM: Alert, pleasant 82-year-old female, on room air, in no apparent distress. HEAD: Normocephalic. EYES: Normal reaction of pupils, equal size. NOSE: Clear with pink turbinates. THROAT: No erythema or exudates. NECK: No masses, no JVD. CHEST: No chest wall deformity. LUNGS: Equal air entry with no rhonchi, wheeze or crackles. CVS: S1 and S2 normal with no audible murmur, regular rhythm. ABDOMEN: No hepatosplenomegaly, normal bowel sounds, no guarding or rigidity. SPINE: No scoliosis or deformity SKIN: No rashes CENTRAL NERVOUS SYSTEM: No focal deficits, tone is normal in all 4 extremities. EXTREMITIES: There is no peripheral edema. No clubbing, no cyanosis. Peripheral pulses are intact. - Labs CBC & Chem 7: 12/05/23 06:24 12/05/23 06:24 Labs: Abnormal Lab Results - Last 24 Hours (Table) 12/05/23 12/05/23 Range/Units 06:24 10:39 WBC 15.26 H (4.50-10.00) X 10*3/uL RBC 2.25 L (4.10-5.20) X 10*6/uL Hgb 6.9 A* (12.0-15.0) g/dL Hct 20.2 L (37.2-46.3) % RDW 15.1 H (11.5-14.5) % Plt Count 112 L (140-440) X 10*3/uL MPV 13.7 H (9.5-12.2) FL Neutrophils # (Manual) 12.36 H (1.80-7.70) X 10*3/uL NRBC/100 WBC Diff 0.05 H (0.00-0.01) X 10*3/uL Crossmatch See Detail Microbiology - Last 24 Hours (Table) 12/04/23 08:42 Blood Culture - Preliminary Blood Assessment and Plan Assessment: Generalized weakness and fall secondary to acute urinary tract infection, sepsis Urinary tract infection secondary to E. coli. Remains on ceftriaxone Bacteremia secondary to E. coli Right renal calculus status post double-J stent catheter placement on 11/29/2023 Acute hypoxemic respiratory failure secondary to acute diastolic congestive heart failure versus possible pneumonia Acute GI bleed, GD on 12/03/2023 revealed a large duodenal ulcer that required epinephrine and clipping. Hemoglobin 6.9 on December 05, 2023 requiring 1 unit of packed red blood cells New onset proximal atrial fibrillation, not on anticoagulation due to thrombocytopenia Acute on chronic thrombocytopenia Lifelong non-smoker History of diastolic congestive heart failure Hypertension Hyperlipidemia Plan: The patient was seen and evaluated Stable and on room air Medications reviewed CBC pending Received 1 unit of packed red blood cells yesterday Surgical services are following Remains on ceftriaxone per ID service This patient was seen independently by the pulmonary nurse practitioner addressing pulmonary issues I have personally seen and examined the patient, performed the documentation and the assessment and plan as written. Number of minutes spent on the visit: 23.
[2023-12-06 10:26] LABS: Basophils # (M) 0 X 10*3/uL (0.00-0.10); Eosinophils # (M) 0 X 10*3/uL (0.04-0.35); HCT 26.7 % (37.2-46.3); HGB 8.9 g/dL (12.0-15.0); Lymphocytes # (M) 0.84 X 10*3/uL (0.90-5.00); MCH 30.2 pg (27.0-32.0); MCHC 33.3 g/dL (32.0-37.0); MCV 90.5 FL (80.0-97.0); Mean Platelet Volume 13.3 FL (9.5-12.2); Metamyelocytes % 1 % (0-0); NRBC Per 100 WBC 0.05 X 10*3/uL (0.00-0.01); Neutrophils # (M) 12.26 X 10*3/uL (1.80-7.70); Neutrophils % (M) 88 %; Nucleated Red Blood Cells 1 /100 WBCS; Platelet Count 135 X 10*3/uL (140-440); RBC 2.95 X 10*6/uL (4.10-5.20); RBC Morphology Normal (Normal); RDW 14.6 % (11.5-14.5); WBC 13.93 X 10*3/uL (4.50-10.00)
--- NOTE | 2023-12-06 13:18 | P.PN ---
Progress Note - Text Progress Note Date: 12/06/23 NEYEO. Patient denies any episodes of rectal bleeding. Tolerating FLD. Patient received 1 unit PRBCs yesterday for a hemoglobin of 6.9. Repeat Hemoglobin is 8.9 this morning. VSS General-NAD Abdomen-soft, NTND ASSESSMENT: 1. Large duodenal ulcer status post EGD with epinephrine injection and clipping 2. UTI with sepsis 3. Right ureteral stone status post stent placement by urology 4. Thrombocytopenia PLAN: -FLD -Trend Hgb -Will continue to follow patient closely -No acute surgical intervention Gab Her DO [facility] [phone]
--- NOTE | 2023-12-06 16:17 | P.PN ---
Subjective Progress Note Date: 12/06/23 Principal diagnosis: Reason for follow-up is complicated UTI and bacteremia Patient is a 82-year-old female with a past medical history significant for hypertension hyperlipidemia osteoarthritis presenting to the hospital after pending the patient did have a fall patient has been complaining of feeling very weak and has been diagnosed with sepsis secondary to complicated UTI in this patient who is status post cystoscopy with right ureteral stent placement and the blood culture came positive with E. coli. On today's evaluation that is 12/06/2023,the patient remains to be afebrile, patient is on room air not requiring supplemental oxygen and denies any shortness of breath no chest pain or cough.Patient denies having any nausea or vomiting, no abdominal pain and no diarrhea has been reported and no more blood in the stool. Patient white count is 13.93, hemoglobin is 8.9 BMP was not done today Objective - Vital Signs Vital signs: Vital Signs Temp 98 F 12/06/23 13:30 Pulse 67 12/06/23 13:30 Resp 17 12/06/23 13:30 BP 126/77 12/06/23 13:30 Pulse Ox 96 12/06/23 13:30 FiO2 Intake & Output 12/05/23 12/06/23 12/06/23 18:59 06:59 18:59 Intake Total 890 580 Balance 890 580 Intake: Oral 580 580 Blood Product 310 Rc As-1 Unit 310 [id number] Other: Voiding Method Toilet Toilet # Voids 3 2 # Bowel Movements 1 - Exam GENERAL DESCRIPTION: An elderly female lying in bed in no distress RESPIRATORY SYSTEM: Unlabored breathing , decreased breath sounds at bases HEART: S1 S2 regular rate and rhythm , ABDOMEN: Soft , no tenderness EXTREMITIES: No edema feet - Labs CBC & Chem 7: 12/06/23 06:36 12/05/23 06:24 Labs: Abnormal Lab Results - Last 24 Hours (Table) 12/05/23 12/06/23 Range/Units 10:39 06:36 WBC 13.93 H (4.50-10.00) X 10*3/uL RBC 2.95 L (4.10-5.20) X 10*6/uL Hgb 8.9 L (12.0-15.0) g/dL Hct 26.7 L (37.2-46.3) % RDW 14.6 H (11.5-14.5) % Plt Count 135 L (140-440) X 10*3/uL MPV 13.3 H (9.5-12.2) FL Neutrophils # (Manual) 12.26 H (1.80-7.70) X 10*3/uL Lymphocytes # (Manual) 0.84 L (0.90-5.00) X 10*3/uL Eosinophils # (Manual) 0 L (0.04-0.35) X 10*3/uL NRBC/100 WBC Diff 0.05 H (0.00-0.01) X 10*3/uL Crossmatch See Detail Microbiology - Last 24 Hours (Table) 12/04/23 08:42 Blood Culture - Preliminary Blood 12/04/23 13:17 Urine Culture - Final Urine,Clean Catch Assessment and Plan (1) Sepsis Current Visit: Yes Status: Acute Priority: High Code(s): A41.9 - SEPSIS, UNSPECIFIED ORGANISM SNOMED Code(s): 36436961 (2) UTI (urinary tract infection) Current Visit: Yes Status: Acute Priority: High Code(s): N39.0 - URINARY TRACT INFECTION, SITE NOT SPECIFIED SNOMED Code(s): 76009379 Plan: 1patient presented to hospital with sepsis in this patient who did have fever tachycardia meeting currently for SIRS source likely urinary patient did have lower abdominal pain positive UA and left-sided ureteral stone concerning for possible complicated UTI likely from enteric gram-negative pathogen 2-patient is status post cystoscopy and right ureteral stent placement by urology 3 blood culture as well as urine culture is growing E. coli both the sensitive to ceftriaxone 4-patient did have a GI bleed but the patient did have a EGD and epinephrine injection of the duodenal ulcer, patient white count is trending down 5patient slowly clinical improvement on Rocephin Rocephin will be transition to oral Ceftin x 7 days on discharge Family at the bedside question concern answered Dictation was produced using [employer] dictation software. please excuse any grammatical, word or spelling errors. Time with Patient: Less than 30
--- NOTE | 2023-12-06 16:54 | P.PN ---
Subjective 11/30/2023 this is an 82-year-old female admitted with complicated UTI, bacteremia status post cystoscopy with placement of a right double-J catheter. Blood culture reporting E. coli, urine culture reporting gram-negative, maintained on ceftriaxone. Tmax 101.5, WBC 8. Denies nausea vomiting or diarrhea. Denies abdominal pain. Reports feeling minimally better. Denies chest pain, palpitations or shortness of breath. Maintaining O2 sats in the low 90s on 2 L nasal cannula. Elevated troponins, 0.175, 0.194, repeat EKG reported atrial fibrillation/flutter with heart rates in the 150s. Echo pending. Currently maintained on Cardizem and heparin drips. 12/01/2023 telemetry reporting fluctuating atrial fibrillation with heart rates as high as the 160s. Echo reporting left ventricular systolic function borderline normal, 50 to 55%, mild mitral and tricuspid regurgitation. Repeat EKG pending. Cardizem drip discontinued, beta-edu increased. Anticoagulation on hold, labs performed later in the morning yesterday reported decrease in platelets to 45. urine culture reporting E. coli, blood culture reporting E. coli, molecular D, maintained on ceftriaxone, as per ID. Tmax 101, WBC within normal limits. Up to bathroom with walker and PT, tolerated exertion well. Maintaining O2 sats in the 90s on 3 L nasal cannula. 12/02/2023 maintained on ceftriaxone, Tmax 101.1, normal WBC. Requiring 4 L nasal cannula to maintain O2 sats in the 90s. Potassium 3.3, magnesium 1.9. Telemetry reporting sinus rhythm throughout the night. Remains off of anticoagulation secondary to thrombocytopenia, platelets increased to 57. 12/03/2023 patient was transferred into the ICU last night secondary to symptomatic GI bleed, hypotension. Reports 3 black bowel movements, positive occult blood. Evaluated by GI and patient is scheduled for EGD tomorrow. Hemoglobin 9.6, platelets 65. Electrolytes and renal function stable. Continues on ceftriaxone for E. coli UTI and bacteremia. Afebrile, WBC 11.6. Chest x-ray reports unchanged with upper lobe patchy infiltrates, right greater than left .maintaining O2 sats in the 90s on 2 L nasal cannula. Receiving potassium supplements as per ICU replacement protocol. Denies chest pain, p alpitations or shortness of breath. Complains of mild nausea. 12/04/2023 underwent EGD yesterday, reporting 3 cm large duodenal ulcer status post epinephrine injection and clipping, 1 L of coffee-ground fluid aspirated from the stomach. No further bleeding. General surgery consulted/on standby. maintained on IV Protonix twice daily, serial CBCs. Hemoglobin currently 8.2, platelets 98. Tolerating clear liquid diet, denies nausea, vomiting .denies abdominal pain .renal function stable. 12/04 Patient feels generally tired with no specific symptoms Hemoglobin dropped 7.5 down to 6.9. She is getting 1 unit of blood transfusion She has leukocytosis 14-15,000 and she is currently covered with ceftriaxone for E. coli in the urine and blood culture. Repeat blood cultures pending Continue with Protonix Avoid NSAIDs and anticoagulation She is status post EGD and epinephrine injection to large duodenal ulcer of 3 cm. We are going to hold aspirin 81 mg tomorrow because of her severe anemia while continuing on IV Protonix 40 mg twice daily 12/05 Patient hemoglobin improved today to 8.9 after 1 unit of blood transfusion On liquid diet She feels better and wants to eat more Check hemoglobin tomorrow Remains on ceftriaxone, iron is added Objective - Vital Signs Vital signs: Vital Signs Temp 98 F 12/06/23 07:47 Pulse 64 12/06/23 07:47 Resp 16 12/06/23 07:47 BP 136/70 12/06/23 07:47 Pulse Ox 96 12/06/23 07:47 FiO2 Intake & Output 12/05/23 12/06/23 12/06/23 18:59 06:59 18:59 Intake Total 890 Balance 890 Intake: Oral 580 Blood Product 310 Rc As-1 Unit 310 [id number] Other: Voiding Method Toilet Toilet # Voids 3 2 # Bowel Movements 1 - Exam GENERAL: The patient is alert and oriented x3, not in any acute distress. Well developed, well nourished. HEENT: Pupils are round and equally reacting to light. EOMI. No scleral icterus. No conjunctival pallor. Normocephalic, atraumatic. No pharyngeal erythema. No thyromegaly. CARDIOVASCULAR: S1 and S2 present. No murmurs, rubs, or gallops. PULMONARY: Chest is clear to auscultation, no wheezing , no crackles. ABDOMEN: Soft, nontender, nondistended, normoactive bowel sounds. No palpable organomegaly. MUSCULOSKELETAL: No joint swelling or deformity. EXTREMITIES: No cyanosis, clubbing, or pedal edema. NEUROLOGICAL: Gross neurological examination did not reveal any focal deficits. SKIN: No rashes. no petechiae. - Labs CBC & Chem 7: 12/06/23 06:36 12/05/23 06:24 Labs: Abnormal Lab Results - Last 24 Hours (Table) 12/05/23 12/05/23 Range/Units 06:24 10:39 WBC 15.26 H (4.50-10.00) X 10*3/uL RBC 2.25 L (4.10-5.20) X 10*6/uL Hgb 6.9 A* (12.0-15.0) g/dL Hct 20.2 L (37.2-46.3) % RDW 15.1 H (11.5-14.5) % Plt Count 112 L (140-440) X 10*3/uL MPV 13.7 H (9.5-12.2) FL Neutrophils # (Manual) 12.36 H (1.80-7.70) X 10*3/uL NRBC/100 WBC Diff 0.05 H (0.00-0.01) X 10*3/uL Crossmatch See Detail Microbiology - Last 24 Hours (Table) 12/04/23 13:17 Urine Culture - Final Urine,Clean Catch 12/04/23 08:42 Blood Culture - Preliminary Blood Assessment and Plan Assessment: Sepsis present on admission secondary to complicated UTI and bacteremia with E. coli, sensitive to ceftriaxone Acute GI bleed status post EGD reporting large duodenal ulcer about 3 cm, status post epinephrine and clipping Acute blood loss anemia secondary to above status post blood transfusion x 1 unit on 12/04 Right ureteral calculus with obstruction, right pyelonephrosis status post cystoscopy, placement of double-J catheter right Acute hypoxic respiratory failure secondary to the above Acute CHF exacerbation, diastolic dysfunction New onset paroxysmal atrial fibrillation, anticoagulation on hold secondary to thrombocytopenia Acute on chronic thrombocytopenia Acute GI bleed Elevated troponins, NSTEMI type II Generalized weakness, mechanical fall Hemoglobin A1c 6.1 Plan: Continue ceftriaxone Follow-up repeat blood culture Infectious disease team on the case Continue with IV Protonix Keep holding aspirin on 12/05 and may be considered to be resumed based on his hemoglobin level Patient status 1 unit of blood transfusion today. Keep monitoring hemoglobin Several consultants on the case including urology, infectious disease, general surgery, cardiology and pulmonary. GI service signed off the case, no GI coverage this weekend in this facility My p labs and medication were reviewed.. Continue same treatment. Continue with symptomatic treatment. Resume home medication. Monitor labs and vitals. DVT and GI prophylaxis. Further recommendations as per clinical course of the patient DVT prophylaxis: Subcutaneous heparin no anticoagulation GI prophylaxis: Protonix PT/OT: Pending Prognosis is guarded
[2023-12-07 03:48] LABS: Glucose,Whole Blood 201 mg/dL (70-110)
[2023-12-07 04:32] LABS: Basophils # (A) 0.1 k/uL (0-0.2); Basophils % (A) 0 %; Eosinophils # (A) 0.1 k/uL (0-0.7); Eosinophils % (A) 0 %; HCT 23.2 % (34.0-46.0); HGB 7.9 gm/dL (11.4-16.0); Lymphocytes # (A) 0.9 k/uL (1.0-4.8); Lymphocytes % (A) 5 %; MCH 30.9 pg (25.0-35.0); MCHC 34.2 g/dL (31.0-37.0); MCV 90.3 fL (80.0-100.0); Mean Platelet Volume 9.9; Monocytes # (A) 0.7 k/uL (0-1.0); Monocytes % (A) 4 %; Neutrophils # (A) 16.1 k/uL (1.3-7.7); Neutrophils % (A) 90 %; Platelet Count 214 k/uL (150-450); Poikilocytosis Slight; RBC 2.57 m/uL (3.80-5.40); RDW 15.4 % (11.5-15.5)
[2023-12-07] MEDS: SODIUM CHLORIDE 0.9% 1,000 ML IV SCH (04:48)
[2023-12-07 05:45] VITALS: RESP 16
[2023-12-07 10:26] LABS: HCT 20.5 % (34.0-46.0); Hypochromasia Slight; MCH 30.3 pg (25.0-35.0); MCHC 33.6 g/dL (31.0-37.0); MCV 90.2 fL (80.0-100.0); Platelet Count 209 k/uL (150-450); Poikilocytosis Slight; RBC 2.27 m/uL (3.80-5.40); RDW 15.4 % (11.5-15.5); WBC 16.9 k/uL (3.8-10.6)
[2023-12-07 10:35] LABS: HGB 6.9 gm/dL (11.4-16.0)
--- NOTE | 2023-12-07 11:44 | P.PN ---
Subjective Progress Note Date: 12/07/23 11/30/2023 this is an 82-year-old female admitted with complicated UTI, bacteremia status post cystoscopy with placement of a right double-J catheter. Blood culture reporting E. coli, urine culture reporting gram-negative, maintained on ceftriaxone. Tmax 101.5, WBC 8. Denies nausea vomiting or diarrhea. Denies abdominal pain. Reports feeling minimally better. Denies chest pain, palpitations or shortness of breath. Maintaining O2 sats in the low 90s on 2 L nasal cannula. Elevated troponins, 0.175, 0.194, repeat EKG reported atrial fibrillation/flutter with heart rates in the 150s. Echo pending. Currently maintained on Cardizem and heparin drips. 12/01/2023 telemetry reporting fluctuating atrial fibrillation with heart rates as high as the 160s. Echo reporting left ventricular systolic function borderline normal, 50 to 55%, mild mitral and tricuspid regurgitation. Repeat EKG pending. Cardizem drip discontinued, beta-edu increased. Anticoagulation on hold, labs performed later in the morning yesterday reported decrease in platelets to 45. urine culture reporting E. coli, blood culture reporting E. coli, molecular D, maintained on ceftriaxone, as per ID. Tmax 101, WBC within normal limits. Up to bathroom with walker and PT, tolerated exertion well. Maintaining O2 sats in the 90s on 3 L nasal cannula. 12/02/2023 maintained on ceftriaxone, Tmax 101.1, normal WBC. Requiring 4 L nasal cannula to maintain O2 sats in the 90s. Potassium 3.3, magnesium 1.9. Telemetry reporting sinus rhythm throughout the night. Remains off of anticoagulation secondary to thrombocytopenia, platelets increased to 57. 12/03/2023 patient was transferred into the ICU last night secondary to symptomatic GI bleed, hypotension. Reports 3 black bowel movements, positive occult blood. Evaluated by GI and patient is scheduled for EGD tomorrow. Hemoglobin 9.6, platelets 65. Electrolytes and renal function stable. Continues on ceftriaxone for E. coli UTI and bacteremia. Afebrile, WBC 11.6. Chest x-ray reports unchanged with upper lobe patchy infiltrates, right greater than left .maintaining O2 sats in the 90s on 2 L nasal cannula. Receiving potassium supplements as per ICU replacement protocol. Denies chest pain, palpitations or shortness of breath. Complains of mild nausea. 12/04/2023 underwent EGD yesterday, reporting 3 cm large duodenal ulcer status post epinephrine injection and clipping, 1 L of coffee-ground fluid aspirated from the stomach. No further bleeding. General surgery consulted/on standby.maintained on IV Protonix twice daily, serial CBCs. Hemoglobin currently 8.2, platelets 98. Tolerating clear liquid diet, denies nausea, vomiting .denies abdominal pain .renal function stable. 12/07/2023 received 1 unit of packed RBCs on 12/05/2023, with drop of hemoglobin to 6.9. Posttransfusion, hemoglobin increased to 8.9 yesterday morning. Early this morning,1 dark tarry/bloody stool reported ,hemoglobin dropped to 7.9 and further down to 6.9 by 0945 with platelets at 209. 1 episode of nausea and vomiting .reports fatigue and epigastric tenderness .denies chest pain, palpitations or shortness of breath, maintaining O2 sats of 100% on 2 L nasal cannula. General surgery recommending transfer to a tertiary care center to facilitate GI to attempt a second clipping-no GI services available this week at this institution or embolization via interventional radiology which our IR does not perform.Transfer to tertiary care center will be initiated. Objective - Vital Signs Vital signs: Vital Signs Temp 98.3 F 12/07/23 08:00 Pulse 67 12/07/23 08:00 Resp 16 12/07/23 08:00 BP 107/62 12/07/23 08:00 Pulse Ox 100 12/07/23 08:00 FiO2 Intake & Output 12/06/23 12/07/23 12/07/23 18:59 06:59 18:59 Intake Total 1410 Balance 1410 Intake: IV 50 cefTRIAXone 2 gm In 50 Sodium Chloride 0.9% 50 ml @ 100 mls/hr IVPB Q24HR [facility] Rx#:[id number] Oral 1360 Other: Voiding Method Toilet Toilet # Voids 3 # Bowel Movements 1 - Exam GENERAL: alert and oriented x3, sitting up in bed, no acute distress. HEENT: Normocephalic, pupils are round and equal, Conjunctiva normal. CARDIOVASCULAR: S1 and S2 present. Regular rate and rhythm ,no murmurs, rubs, or gallops. PULMONARY: Unlabored, equal air entry, essentially clear to auscultation ABDOMEN: Soft, nondistended, minimal epigastric tenderness, no guarding, no rigidity, normoactive bowel sounds. EXTREMITIES: No cyanosis, clubbing, or pedal edema. NEUROLOGICAL: Gross neurological examination did not reveal any focal deficits. SKIN: No rashes noted, warm and dry. - Labs CBC & Chem 7: 12/07/23 09:49 12/05/23 06:24 Labs: Abnormal Lab Results - Last 24 Hours (Table) 12/05/23 12/07/23 12/07/23 Range/Units 10:39 03:45 04:13 WBC 18.0 H (3.8-10.6) k/uL RBC 2.57 L (3.80-5.40) m/uL Hgb 7.9 L (11.4-16.0) gm/dL Hct 23.2 L (34.0-46.0) % Neutrophils # 16.1 H (1.3-7.7) k/uL Lymphocytes # 0.9 L (1.0-4.8) k/uL POC Glucose (mg/dL) 201 H (70-110) mg/dL Crossmatch See Detail 12/07/23 Range/Units 09:49 WBC 16.9 H (3.8-10.6) k/uL RBC 2.27 L (3.80-5.40) m/uL Hgb 6.9 L* (11.4-16.0) gm/dL Hct 20.5 L (34.0-46.0) % Neutrophils # (1.3-7.7) k/uL Lymphocytes # (1.0-4.8) k/uL POC Glucose (mg/dL) (70-110) mg/dL Crossmatch Microbiology - Last 24 Hours (Table) 12/04/23 08:42 Blood Culture - Preliminary Blood 12/04/23 13:17 Urine Culture - Final Urine,Clean Catch Assessment and Plan Assessment: Sepsis present on admission secondary to complicated UTI and bacteremia with E. coli, sensitive to ceftriaxone Acute GI bleed status post EGD reporting large duodenal ulcer, status post epinephrine and clipping Right ureteral calculus with obstruction, right pyelonephrosis status post cystoscopy, placement of double-J catheter right Acute hypoxic respiratory failure secondary to the above Acute CHF exacerbation, diastolic dysfunction New onset paroxysmal atrial fibrillation, converted to sinus rhythm. No anticoagulation recommended per cardiology as episode of A-fib occurred in the setting of bacteremia with sepsis. Acute on chronic thrombocytopenia Acute GI bleed Elevated troponins, NSTEMI type II Generalized weakness, mechanical fall Hemoglobin A1c 6.1 Plan: Continue on current medication regimen ,monitoring and symptomatic treatment. 1 unit of packed RBCs ordered. transfer to tertiary care center been initiated as per PCP to [facility], as recommended per general surgery related to(1) no GI services at this institution this week. (2) Embolization is not offered by our IR. maintain PPI. Maintain serial CBCs .General surgery on standby. Cardiology recommending no anticoagulation related to atrial fibrillation occurred with bacteremia and sepsis. The impression and plan of care has been dictated as directed. : I performed a history and examination of this patient, discussed the same with the dictator. I agree with the dictator's note ,documented as a scribe. Any additional findings or plans will be noted.
--- NOTE | 2023-12-07 11:45 | P.PN ---
Subjective Progress Note Date: 12/07/23 CHIEF COMPLAINT: Fall HISTORY OF PRESENT ILLNESS: Surgical service has been following in regards to patient's large duodenal ulcer. Patient had been doing well and then over the weekend diet had been advanced to full liquids. Patient had had no further bowel movements over the weekend until this morning around 3 AM she had dark bloody bowel movements. She also had 1 episode of vomiting. She is mildly tender in the epigastric area. Hemoglobin did drop from 8.9-7.9. During this admission she has received a total of 1 unit of packed red blood cells. PHYSICAL EXAM: VITAL SIGNS: Reviewed. GENERAL: Well-developed in no acute distress. ABDOMEN: Soft. Nondistended. Mild tenderness epigastric area no guarding NEUROLOGIC: Alert and oriented. Cranial nerves II through XII grossly intact. ASSESSMENT: 1. Large duodenal ulcer status post EGD with epinephrine injection and clipping by GI service 2. UTI with sepsis 3. Right ureteral stone status post stent placement by urology PLAN: -Recommend transfer to tertiary care center such as [facility] or [facility]. Recommend patient to be reevaluated by GI service which is not available this week at our facility and/or IR service for possible embolization. -Continue IV Protonix twice daily -Keep patient n.p.o. for now -Continue to monitor hemoglobin -Case was discussed with medicine nurse practitioner Physician [employer] Machine [employer] note has been reviewed by physician. Signing provider agrees with the documented findings, assessment, and plan of care. Attestation Patient seen and examined at bedside and case discussed with patient and patient's family at bedside. Patient has had dark bloody bowel movement at 4 AM and again 1 time between 4 AM and 4 PM. Hemoglobin is 6.9. Patient did receive packed red blood cells with hemoglobin increased to 8.9. Based on patient's history of GI bleeding with large duodenal ulcer status post EGD with epinephrine injection and clipping by GI service, I did recommend further evaluation by GI, however GI is not available at this facility for this week. Patient would benefit from additional GI evaluation and possibility of IR intervention for embolization should she continue to have bleeding. This is not available at this facility. Recommended transfer to tertiary care center with availability of GI service and IR service. Alfonso Vincent DO Objective - Vital Signs Vital signs: Vital Signs Temp 98.3 F 12/07/23 08:00 Pulse 67 12/07/23 08:00 Resp 16 12/07/23 08:00 BP 107/62 12/07/23 08:00 Pulse Ox 100 12/07/23 08:00 FiO2 Intake & Output 12/06/23 12/07/23 12/07/23 18:59 06:59 18:59 Intake Total 1410 Balance 1410 Intake: IV 50 cefTRIAXone 2 gm In 50 Sodium Chloride 0.9% 50 ml @ 100 mls/hr IVPB Q24HR [facility] Rx#:[id number] Oral 1360 Other: Voiding Method Toilet Toilet # Voids 3 # Bowel Movements 1 - Labs CBC & Chem 7: 12/07/23 16:33 12/05/23 06:24 Labs: Abnormal Lab Results - Last 24 Hours (Table) 12/05/23 12/07/23 12/07/23 Range/Units 10:39 03:45 04:13 WBC 18.0 H (3.8-10.6) k/uL RBC 2.57 L (3.80-5.40) m/uL Hgb 7.9 L (11.4-16.0) gm/dL Hct 23.2 L (34.0-46.0) % Neutrophils # 16.1 H (1.3-7.7) k/uL Lymphocytes # 0.9 L (1.0-4.8) k/uL POC Glucose (mg/dL) 201 H (70-110) mg/dL Crossmatch See Detail 12/07/23 Range/Units 09:49 WBC 16.9 H (3.8-10.6) k/uL RBC 2.27 L (3.80-5.40) m/uL Hgb 6.9 L* (11.4-16.0) gm/dL Hct 20.5 L (34.0-46.0) % Neutrophils # (1.3-7.7) k/uL Lymphocytes # (1.0-4.8) k/uL POC Glucose (mg/dL) (70-110) mg/dL Crossmatch Microbiology - Last 24 Hours (Table) 12/04/23 08:42 Blood Culture - Preliminary Blood 12/04/23 13:17 Urine Culture - Final Urine,Clean Catch
--- NOTE | 2023-12-07 15:15 | P.PN ---
Subjective Progress Note Date: 12/07/23 This is an 82-year-old female patient with a known history of hypertension, hyperlipidemia, osteoarthritis, lifelong non-smoker. She presented here to the emergency room back on 11/28/2023 after sustaining a fall secondary to weakness for several days prior to her arrival. No injury. Chest x-ray at that time revealed no acute pulmonary process. This with obstruction with urinary tract infection secondary to E. coli and right pyelonephritis. She did undergo cystoscopy with placement of a double-J catheter on the right on 11/29/2023. Blood cultures were positive for E. coli as well. Echocardiogram revealed preserved left ventricular systolic function with ejection fraction of 50 to 55%. No significant valvular abnormalities. A follow-up chest x-ray on 11/30/2023 revealed perihilar consolidations concerning for pneumonia. Small left pleural effusion. Still hypoxemic with oxygen at 4 L/min per nasal cannula. Temperature 101.1 today. She is hemodynamically stable. We are consulted today 12/02/2023. Currently seen sitting up in bed. Awake and alert in no acute distress. White count 8.3. Hemoglobin 12.2. Platelets 57,000. Sodium 140. Potassium 3.3. Bicarb 30. BUN 22. Creatinine 0.63. She is currently on ceftriaxone. The patient is seen today December 03, 2023 in follow-up in the intensive care unit. She was transferred here due to episodes of GI bleeding, atrial fibri llation, hypotension. Nightly, she is sitting up in bed. Awake and alert in no acute distress. Maintaining O2 saturations in the 90s on 2 L/min per nasal cannula. She is afebrile. Hemodynamically stable. She did have a bloody bowel movement again this morning. Urine cultures positive for E. coli. Blood cultures positive for E. coli. White count 11.6. Hemoglobin 9.6. Platelets 65,000. Sodium 140. Potassium 3.5. Bicarb 26. BUN 27. Creatinine 0.56. Glucose 134. She remains on ceftriaxone. Chest x-ray shows upper patchy infiltrates on the right greater than left. Unchanged. The patient is seen today December 04, 2023 in follow-up in the intensive care unit. She is currently awake and alert in no acute distress. Maintaining O2 saturations in the 90s on 3 L/min per nasal cannula. She is afebrile. Hemodynamically stable. She did undergo an EGD yesterday and was found to have a duodenal ulcer that required epinephrine and clipping. No further bleeding. 1 L of coffee-ground fluid was aspirated from the stomach. Blood and urine cultures are positive for E. coli. White count 13.7. Hemoglobin 8.2. Platelets 98. Sodium 138. Potassium 3.5. Bicarb 25. BUN 21. Creatinine 0.57. Glucose 111. She remains on IV Protonix. Continued on bronchodilators. Continued on ceftriaxone. The patient is seen today December 05, 2023 in follow-up on the regular medical floor. She was transferred out of the intensive care unit yesterday. She remains awake and alert in no acute distress. She denies any worsening shortness of breath, cough or congestion. She is afebrile. Hemodynamically stable. She is maintaining O2 saturations in the 90s on 2 L/min per nasal cannu la. No IV fluids. Her urine and blood cultures are positive for E. coli. She remains on ceftriaxone. White count 15.2. Hemoglobin 6.9. Platelets 112. Potassium 3.6. She was found to have a large duodenal ulcer that required epinephrine injection and clipping on 12/03/2023. Plan is for 1 unit of packed red blood cells today. The patient is seen today December 06, 2023 in follow-up on the regular medical floor. She is resting comfortably in bed. Maintaining good O2 saturations in the 90s on room air. She did require 1 unit of packed red blood cells yesterday for hemoglobin of 6.9. Today's labs are pending. She remains on Rocephin. She has E. coli urinary tract infection and bacteremia. She is afebrile. Hemodynamically stable. 12/07/2023, patient is being seen for a follow-up. Patient has being monitored for any GI bleeding. Noted earlier this morning, the patient had dark bloody bowel movements a total of 3 and 1 episode of emesis. Her abdomen is nontender. There was a drop in hemoglobin down to 6.9 and the patient is currently receiving a unit of packed RBC. No significant tachycardia. No hemodynamic instability and the patient remains normotensive and afebrile. Most recent blood pressure is 108/66. She remains on 2 L of O2 nasal cannula with a pulse ox of 97%. Noted the patient has a large duodenal ulcer and the patient is status post EGD with epinephrine injection and Endo Clip application and this was done by gastroenterology on 12/03/2023 and general surgery is also on the case. On a separate note, the patient has urine tract infection with E. coli and she was septic at time of admission and the patient is currently on IV Rocephin. ID is on the case. The white cell count is at 16. Rest of the electrolytes done from 12/04/2023 was all within normal limits. Awake and alert and communicating at this point in time. Objective - Vital Signs Vital signs: Vital Signs Temp 98.3 F 12/07/23 08:00 Pulse 67 12/07/23 08:00 Resp 16 12/07/23 08:00 BP 107/62 12/07/23 08:00 Pulse Ox 100 12/07/23 08:00 FiO2 Intake & Output 12/06/23 12/07/23 12/07/23 18:59 06:59 18:59 Intake Total 1410 Balance 1410 Intake: IV 50 cefTRIAXone 2 gm In 50 Sodium Chloride 0.9% 50 ml @ 100 mls/hr IVPB Q24HR [facility] Rx#:[id number] Oral 1360 Other: Voiding Method Toilet Toilet # Voids 3 # Bowel Movements 1 - Exam GENERAL EXAM: Alert, pleasant 82-year-old female, on 3 L of oxygen by nasal cannula, in no apparent distress. HEAD: Normocephalic. EYES: Normal reaction of pupils, equal size. NOSE: Clear with pink turbinates. THROAT: No erythema or exudates. NECK: No masses, no JVD. CHEST: No chest wall deformity. LUNGS: Equal air entry with no rhonchi, wheeze or crackles. CVS: S1 and S2 normal with no audible murmur, regular rhythm. ABDOMEN: No hepatosplenomegaly, normal bowel sounds, no guarding or rigidity. SPINE: No scoliosis or deformity SKIN: No rashes CENTRAL NERVOUS SYSTEM: No focal deficits, tone is normal in all 4 extremities. EXTREMITIES: There is no peripheral edema. No clubbing, no cyanosis. Peripheral pulses are intact. - Labs CBC & Chem 7: 12/07/23 09:49 12/05/23 06:24 Labs: Abnormal Lab Results - Last 24 Hours (Table) 12/05/23 12/07/23 12/07/23 Range/Units 10:39 03:45 04:13 WBC 18.0 H (3.8-10.6) k/uL RBC 2.57 L (3.80-5.40) m/uL Hgb 7.9 L (11.4-16.0) gm/dL Hct 23.2 L (34.0-46.0) % Neutrophils # 16.1 H (1.3-7.7) k/uL Lymphocytes # 0.9 L (1.0-4.8) k/uL POC Glucose (mg/dL) 201 H (70-110) mg/dL Crossmatch See Detail 12/07/23 Range/Units 09:49 WBC 16.9 H (3.8-10.6) k/uL RBC 2.27 L (3.80-5.40) m/uL Hgb 6.9 L* (11.4-16.0) gm/dL Hct 20.5 L (34.0-46.0) % Neutrophils # (1.3-7.7) k/uL Lymphocytes # (1.0-4.8) k/uL POC Glucose (mg/dL) (70-110) mg/dL Crossmatch Microbiology - Last 24 Hours (Table) 12/04/23 08:42 Blood Culture - Preliminary Blood 12/04/23 13:17 Urine Culture - Final Urine,Clean Catch Assessment and Plan Plan: Upper GI bleeding, rule out recurrent duodenal bleed along with a drop in hemoglobin down to 6.9. Borderline hypotensive, no significant tachycardia in the patient receiving another unit of packed RBC. General surgery and GI s ervices are both on the case. Sepsis secondary to urinary tract infection secondary to E. coli. Remains on ceftriaxone Right renal calculus status post double-J stent catheter placement on 11/29/2023 Acute hypoxemic respiratory failure secondary to acute diastolic congestive heart failure versus possible pneumonia Acute GI bleed, GD on 12/03/2023 revealed a large duodenal ulcer that required e pinephrine and clipping. Hemoglobin 6.9 with ongoing drop in hemoglobin highly suspicious for recurrent bleed specially the patient had several episodes of bloody bowel movement earlier this morning. New onset paroxysmal atrial fibrillation, not on anticoagulation due to thrombocytopenia Acute on chronic thrombocytopenia Lifelong non-smoker History of diastolic congestive heart failure Hypertension Hyperlipidemia Plan: GI services and general surgery to reevaluate the patient Will give another unit of packed RBC Surgical services are following continue IV Rocephin, remains on ceftriaxone per ID service Being considered to be transferred regarding ongoing GI bleed related to the duodenal ulcer. Will continue resuscitation. Will continue monitoring her hemoglobin and transfuse accordingly. Obviously another EGD may be of value and a final decision will be left up to gastroenterology.
[2023-12-07] MEDS: FUROSEMIDE 10 MG/ML 2 ML VIAL IV ONE (16:00)
[2023-12-07 17:24] LABS: HCT 27.1 % (34.0-46.0); Hypochromasia Slight; MCH 30.9 pg (25.0-35.0); MCHC 32.7 g/dL (31.0-37.0); MCV 94.5 fL (80.0-100.0); Mean Platelet Volume 10.9; Platelet Count 202 k/uL (150-450); Poikilocytosis Slight; RBC 2.87 m/uL (3.80-5.40); WBC 17.1 k/uL (3.8-10.6)
[2023-12-07 17:31] LABS: HGB 8.9 gm/dL (11.4-16.0)
[2023-12-08 00:46] LABS: Basophils # (A) 0.1 k/uL (0-0.2); Basophils % (A) 0 %; Eosinophils # (A) 0.1 k/uL (0-0.7); Eosinophils % (A) 1 %; HCT 23.8 % (34.0-46.0); Hypochromasia Slight; Lymphocytes # (A) 1.7 k/uL (1.0-4.8); Lymphocytes % (A) 12 %; MCH 30.6 pg (25.0-35.0); MCHC 33.7 g/dL (31.0-37.0); MCV 90.9 fL (80.0-100.0); Mean Platelet Volume 9.9; Monocytes # (A) 0.5 k/uL (0-1.0); Monocytes % (A) 3 %; Neutrophils # (A) 12.3 k/uL (1.3-7.7); Neutrophils % (A) 83 %; Platelet Count 200 k/uL (150-450); Poikilocytosis Slight; RBC 2.62 m/uL (3.80-5.40); RDW 15.3 % (11.5-15.5); WBC 14.9 k/uL (3.8-10.6)
[2023-12-08 08:44] LABS: Basophils # (A) 0.1 k/uL (0-0.2); Basophils % (A) 0 %; Eosinophils # (A) 0.1 k/uL (0-0.7); Eosinophils % (A) 1 %; HCT 26.7 % (34.0-46.0); HGB 8.8 gm/dL (11.4-16.0); Hypochromasia Slight; Lymphocytes # (A) 1.6 k/uL (1.0-4.8); Lymphocytes % (A) 10 %; MCH 30.9 pg (25.0-35.0); MCHC 32.9 g/dL (31.0-37.0); Mean Platelet Volume 10.4; Monocytes # (A) 0.6 k/uL (0-1.0); Monocytes % (A) 4 %; Neutrophils # (A) 13.4 k/uL (1.3-7.7); Neutrophils % (A) 84 %; Platelet Count 258 k/uL (150-450); Poikilocytosis Slight; RBC 2.84 m/uL (3.80-5.40); RDW 14.8 % (11.5-15.5); WBC 16.1 k/uL (3.8-10.6)
--- NOTE | 2023-12-08 10:12 | P.DS ---
Providers Date of admission: 11/28/23 23:45 Expected date of discharge: 12/08/23 Attending physician: Malik Serra Consults: 11/29/23 01:04 Consult Physician Urgent Consulting Provider: Lorenzo Jaime Consult Reason/Comments: ureteral stone, uti Do you want consulting provider notified?: Already Contacted 11/29/23 09:44 Consult Physician Routine Consulting Provider: Kyle Brock Consult Reason/Comments: UTI Do you want consulting provider notified?: Yes 12/02/23 09:45 Consult Physician Routine Consulting Provider: Jayjay Sanford Consult Reason/Comments: Thrombocytopenia, new onset A-fib, sepsis Do you want consulting provider notified?: Yes 12/02/23 12:02 Consult Physician Routine Consulting Provider: Chucho Hawkins Consult Reason/Comments: worsening Hypoxia/ ICU management Do you want consulting provider notified?: Yes 12/02/23 19:49 Consult Physician Stat Consulting Provider: Sally Kulkarni Consult Reason/Comments: blood in stool, abdominal pain Do you want consulting provider notified?: Yes 12/03/23 16:42 Consult Physician Routine Consulting Provider: Gab Her Consult Reason/Comments: duodenal ulcer Do you want consulting provider notified?: Yes Primary care physician: Malik Serra Hospital Course: Final Diagnoses: Sepsis present on admission secondary to complicated UTI and bacteremia with E. coli, sensitive to ceftriaxone Acute GI bleed status post EGD reporting large duodenal ulcer, status post epinephrine and clipping Right ureteral calculus with obstruction, right pyelonephrosis status post cystoscopy, placement of double-J catheter right Acute hypoxic respiratory failure secondary to the above Acute CHF exacerbation, diastolic dysfunction New onset paroxysmal atrial fibrillation, converted to sinus rhythm. No anticoagulation recommended per cardiology as episode of A-fib occurred in the setting of bacteremia with sepsis. Acute on chronic thrombocytopenia Acute GI bleed Elevated troponins, NSTEMI type II Generalized weakness, mechanical fall Hemoglobin A1c 6.1 Hospital course:11/30/2023 this is an 82-year-old female admitted with complicated UTI, bacteremia status post cystoscopy with placement of a right double-J catheter. Blood culture reporting E. coli, urine culture reporting gram-negative, maintained on ceftriaxone. Tmax 101.5, WBC 8. Denies nausea vomiting or diarrhea. Denies abdominal pain. Reports feeling minimally better. Denies chest pain, palpitations or shortness of breath. Maintaining O2 sats in the low 90s on 2 L nasal cannula. Elevated troponins, 0.175, 0.194, repeat EKG reported atrial fibrillation/flutter with heart rates in the 150s. Echo pending. Currently maintained on Cardizem and heparin drips. 12/01/2023 telemetry reporting fluctuating atrial fibrillation with heart rates as high as the 160s. Echo reporting left ventricular systolic function borderline normal, 50 to 55%, mild mitral and tricuspid regurgitation. Repeat EKG pending. Cardizem drip discontinued, beta-edu increased. Anticoagulation on hold, labs performed later in the morning yesterday reported decrease in platelets to 45. urine culture reporting E. coli, blood culture reporting E. coli, molecular D, maintained on ceftriaxone, as per ID. Tmax 101, WBC within normal limits. Up to bathroom with walker and PT, tolerated exertion well. Maintaining O2 sats in the 90s on 3 L nasal cannula. 12/02/2023 maintained on ceftriaxone, Tmax 101.1, normal WBC. Requiring 4 L nasal cannula to maintain O2 sats in the 90s. Potassium 3.3, magnesium 1.9. Telemetry reporting sinus rhythm throughout the night. Remains off of anticoagulation secondary to thrombocytopenia, platelets increased to 57. 12/03/2023 patient was transferred into the ICU last night secondary to symptomatic GI bleed, hypotension. Reports 3 black bowel movements, positive occult blood. Evaluated by GI and patient is scheduled for EGD tomorrow. Hemoglobin 9.6, platelets 65. Electrolytes and renal function stable. Continues on ceftriaxone for E. coli UTI and bacteremia. Afebrile, WBC 11.6. Chest x-ray reports unchanged with upper lobe patchy infiltrates, right greater than left .maintaining O2 sats in the 90s on 2 L nasal cannula. Receiving potassium supplements as per ICU replacement protocol. Denies chest pain, palpitations or shortness of breath. Complains of mild nausea. 12/04/2023 underwent EGD yesterday, reporting 3 cm large duodenal ulcer status post epinephrine injection and clipping, 1 L of coffee-ground fluid aspirated from the stomach. No further bleeding. General surgery consulted/on standby.maintained on IV Protonix twice daily, serial CBCs. Hemoglobin currently 8.2, platelets 98. Tolerating clear liquid diet, denies nausea, vomiting .denies abdominal pain .renal function stable. 12/07/2023 received 1 unit of packed RBCs on 12/05/2023, with drop of hemoglobin to 6.9. Posttransfusion, hemoglobin increased to 8.9 yesterday morning. Early this morning,1 dark tarry/bloody stool reported ,hemoglobin dropped to 7.9 and further down to 6.9 by 0945 with platelets at 209. 1 episode of nausea and vomiting .reports fatigue and epigastric tenderness .denies chest pain, palpitations or shortness of breath, maintaining O2 sats of 100% on 2 L nasal cannula. General surgery recommending transfer to a tertiary care center to facilitate GI to attempt a second clipping-no GI services available this week at this institution or embolization via interventional radiology which our IR does not perform.Transfer to tertiary care center will be initiated. 1 unit of packed RBCs ordered. transfer to tertiary [facility] center been initiated as per PCP to [facility], as recommended per general surgery related to(1) no GI services at this institution this week. (2) Embolization is not offered by our IR. maintain PPI. Maintain serial CBCs .General surgery on standby. Cardiology recommending no anticoagulation related to atrial fibrillation occurred with bacteremia and sepsis. This morning had another small black bloody bowel movement .denies abdominal pain. Denies chest pain or palpitations or shortness of breath. Hemoglobin 8.8 status post 1 unit packed RBCs received yesterday .patient is being transferred to [facility] related to ongoing GI bleed, as recommended per general surgery related to(1) no GI services at this institution this week. (2) Embolization is not offered by our IR. maintain PPI. Maintain serial CBCs .General surgery on standby. Patient has been accepted at [facility], bed pending. The impression and plan of care has been dictated as directed. : I performed a history and examination of this patient, discussed the same with the dictator. I agree with the dictator's note ,documented as a scribe. Any additional findings or plans will be noted. Patient Condition at Discharge: Stable Plan - Discharge Summary Discharge Rx Participant: No New Discharge Prescriptions: No Action Simvastatin [Zocor] 20 mg PO HS lisinopriL [Zestril] 10 mg PO DAILY Discharge Medication List Simvastatin [Zocor] 20 mg PO HS 11/29/23 [History] lisinopriL [Zestril] 10 mg PO DAILY 11/29/23 [History] Follow up Appointment(s)/Referral(s): Kyle Buitrago MD [Medical Doctor] - 10 Days Sally Kulkarni MD [STAFF PHYSICIAN] - 4 Weeks Gab Her DO [Medical Doctor] - 1 Week Malik Serra DO [Primary Care Provider] - 3 Days
[2023-12-08 10:43] VITALS: BMI 27.8
[2023-12-08 11:51] LABS: Basophils # (A) 0.1 k/uL (0-0.2); Basophils % (A) 1 %; Eosinophils # (A) 0.1 k/uL (0-0.7); Eosinophils % (A) 1 %; HCT 25.3 % (34.0-46.0); HGB 8.3 gm/dL (11.4-16.0); Hypochromasia Slight; Lymphocytes # (A) 1.2 k/uL (1.0-4.8); Lymphocytes % (A) 7 %; MCH 30.9 pg (25.0-35.0); MCV 93.6 fL (80.0-100.0); Mean Platelet Volume 8.9; Monocytes # (A) 0.6 k/uL (0-1.0); Monocytes % (A) 3 %; Neutrophils # (A) 14.4 k/uL (1.3-7.7); Neutrophils % (A) 87 %; Platelet Count 225 k/uL (150-450); Poikilocytosis Slight; RDW 14.7 % (11.5-15.5); WBC 16.6 k/uL (3.8-10.6)
--- NOTE | 2023-12-08 14:53 | P.PN ---
Subjective Progress Note Date: 12/08/23 This is an 82-year-old female patient with a known history of hypertension, hyperlipidemia, osteoarthritis, lifelong non-smoker. She presented here to the emergency room back on 11/28/2023 after sustaining a fall secondary to weakness for several days prior to her arrival. No injury. Chest x-ray at that time revealed no acute pulmonary process. This with obstruction with urinary tract infection secondary to E. coli and right pyelonephritis. She did undergo cystoscopy with placement of a double-J catheter on the right on 11/29/2023. Blood cultures were positive for E. coli as well. Echocardiogram revealed preserved left ventricular systolic function with ejection fraction of 50 to 55%. No significant valvular abnormalities. A follow-up chest x-ray on 11/30/2023 revealed perihilar consolidations concerning for pneumonia. Small left pleural effusion. Still hypoxemic with oxygen at 4 L/min per nasal cannula. Temperature 101.1 today. She is hemodynamically stable. We are consulted today 12/02/2023. Currently seen sitting up in bed. Awake and alert in no acute distress. White count 8.3. Hemoglobin 12.2. Platelets 57,000. Sodium 140. Potassium 3.3. Bicarb 30. BUN 22. Creatinine 0.63. She is currently on ceftriaxone. The patient is seen today December 03, 2023 in follow-up in the intensive care unit. She was transferred here due to episodes of GI bleeding, atrial fibri llation, hypotension. Nightly, she is sitting up in bed. Awake and alert in no acute distress. Maintaining O2 saturations in the 90s on 2 L/min per nasal cannula. She is afebrile. Hemodynamically stable. She did have a bloody bowel movement again this morning. Urine cultures positive for E. coli. Blood cultures positive for E. coli. White count 11.6. Hemoglobin 9.6. Platelets 65,000. Sodium 140. Potassium 3.5. Bicarb 26. BUN 27. Creatinine 0.56. Glucose 134. She remains on ceftriaxone. Chest x-ray shows upper patchy infiltrates on the right greater than left. Unchanged. The patient is seen today December 04, 2023 in follow-up in the intensive care unit. She is currently awake and alert in no acute distress. Maintaining O2 saturations in the 90s on 3 L/min per nasal cannula. She is afebrile. Hemodynamically stable. She did undergo an EGD yesterday and was found to have a duodenal ulcer that required epinephrine and clipping. No further bleeding. 1 L of coffee-ground fluid was aspirated from the stomach. Blood and urine cultures are positive for E. coli. White count 13.7. Hemoglobin 8.2. Platelets 98. Sodium 138. Potassium 3.5. Bicarb 25. BUN 21. Creatinine 0.57. Glucose 111. She remains on IV Protonix. Continued on bronchodilators. Continued on ceftriaxone. The patient is seen today December 05, 2023 in follow-up on the regular medical floor. She was transferred out of the intensive care unit yesterday. She remains awake and alert in no acute distress. She denies any worsening shortness of breath, cough or congestion. She is afebrile. Hemodynamically stable. She is maintaining O2 saturations in the 90s on 2 L/min per nasal cannu la. No IV fluids. Her urine and blood cultures are positive for E. coli. She remains on ceftriaxone. White count 15.2. Hemoglobin 6.9. Platelets 112. Potassium 3.6. She was found to have a large duodenal ulcer that required epinephrine injection and clipping on 12/03/2023. Plan is for 1 unit of packed red blood cells today. The patient is seen today December 06, 2023 in follow-up on the regular medical floor. She is resting comfortably in bed. Maintaining good O2 saturations in the 90s on room air. She did require 1 unit of packed red blood cells yesterday for hemoglobin of 6.9. Today's labs are pending. She remains on Rocephin. She has E. coli urinary tract infection and bacteremia. She is afebrile. Hemodynamically stable. 12/07/2023, patient is being seen for a follow-up. Patient has being monitored for any GI bleeding. Noted earlier this morning, the patient had dark bloody bowel movements a total of 3 and 1 episode of emesis. Her abdomen is nontender. There was a drop in hemoglobin down to 6.9 and the patient is currently receiving a unit of packed RBC. No significant tachycardia. No hemodynamic instability and the patient remains normotensive and afebrile. Most recent blood pressure is 108/66. She remains on 2 L of O2 nasal cannula with a pulse ox of 97%. Noted the patient has a large duodenal ulcer and the patient is status post EGD with epinephrine injection and Endo Clip application and this was done by gastroenterology on 12/03/2023 and general surgery is also on the case. On a separate note, the patient has urine tract infection with E. coli and she was septic at time of admission and the patient is currently on IV Rocephin. ID is on the case. The white cell count is at 16. Rest of the electrolytes done from 12/04/2023 was all within normal limits. Awake and alert and communicating at this point in time. On 12/08/2023, the patient is being seen for a follow-up. The patient is not showing any active bleeding. Fortunately, the hemoglobin has remained stable at 8.3. Nevertheless, patient plan is to transfer this patient for an another GI evaluation to another medical facility where GI services should be able to control this duodenal ulcer bleed. The patient is currently NPO. Will allow some clear liquid diet. Hemoglobin today is at 8.3. Hemodynamically stable. Adequate urine output. No nausea. No emesis. No abdominal pain. No other significant events overnight. Remains on IV Rocephin regarding a E. coli urine tract infection. Hemodynamically stable. Objective - Vital Signs Vital signs: Vital Signs Temp 97.9 F 12/08/23 08:00 Pulse 69 12/08/23 08:00 Resp 16 12/08/23 08:00 BP 129/60 12/08/23 08:00 Pulse Ox 98 12/08/23 08:00 FiO2 Intake & Output 12/07/23 12/08/23 12/08/23 18:59 06:59 18:59 Intake Total 1162 Balance 1162 Weight 68.9 kg 68.9 kg Intake: Intake, IV Titration 600 Amount Sodium Chloride 0.9% 1, 600 000 ml @ 125 mls/hr IV . Q8H [facility] Rx#:[id number] Blood Product 562 Rc Pheresis 2 As3 Unit 281 [id number] Other: Voiding Method Toilet Toilet Toilet # Voids 2 3 # Bowel Movements 1 - Exam GENERAL EXAM: Alert, pleasant 82-year-old female, on 3 L of oxygen by nasal cannula, in no apparent distress. HEAD: Normocephalic. EYES: Normal reaction of pupils, equal size. NOSE: Clear with pink turbinates. THROAT: No erythema or exudates. NECK: No masses, no JVD. CHEST: No chest wall deformity. LUNGS: Equal air entry with no rhonchi, wheeze or crackles. CVS: S1 and S2 normal with no audible murmur, regular rhythm. ABDOMEN: No hepatosplenomegaly, normal bowel sounds, no guarding or rigidity. SPINE: No scoliosis or deformity SKIN: No rashes CENTRAL NERVOUS SYSTEM: No focal deficits, tone is normal in all 4 extremities. EXTREMITIES: There is no peripheral edema. No clubbing, no cyanosis. Peripheral pulses are intact. - Labs CBC & Chem 7: 12/08/23 11:41 12/05/23 06:24 Labs: Abnormal Lab Results - Last 24 Hours (Table) 12/05/23 12/07/23 12/08/23 Range/Units 10:39 16:33 00:19 WBC 17.1 H 14.9 H (3.8-10.6) k/uL RBC 2.87 L 2.62 L (3.80-5.40) m/uL Hgb 8.9 L D 8.0 L (11.4-16.0) gm/dL Hct 27.1 L 23.8 L (34.0-46.0) % Neutrophils # 12.3 H (1.3-7.7) k/uL Crossmatch See Detail 12/08/23 Range/Units 07:30 WBC 16.1 H (3.8-10.6) k/uL RBC 2.84 L (3.80-5.40) m/uL Hgb 8.8 L (11.4-16.0) gm/dL Hct 26.7 L (34.0-46.0) % Neutrophils # 13.4 H (1.3-7.7) k/uL Crossmatch Microbiology - Last 24 Hours (Table) 12/04/23 08:42 Blood Culture - Preliminary Blood Assessment and Plan Plan: Upper GI bleeding, rule out recurrent duodenal bleed along with a drop in hemoglobin down to 6.9. Borderline hypotensive, no significant tachycardia in the patient receiving another unit of packed RBC. General surgery and GI services are both on the case. The hemoglobin is currently stable at 8.3 and the patient is seeking another GI consultation from an outside facility regarding this recurrent duodenal bleed. She is NPO. Sepsis secondary to urinary tract infection secondary to E. coli. Remains on ceftriaxone Right renal calculus status post double-J stent catheter placement on 11/29/2023 Acute hypoxemic respiratory failure secondary to acute diastolic congestive heart failure versus possible pneumonia Acute GI bleed, GD on 12/03/2023 revealed a large duodenal ulcer that required epinephrine and clipping. Hemoglobin 6.9 with ongoing drop in hemoglobin highly suspicious for recurrent bleed specially the patient had several episodes of bloody bowel movement earlier this morning. New onset paroxysmal atrial fibrillation, not on anticoagulation due to thrombocytopenia Acute on chronic thrombocytopenia Lifelong non-smoker History of diastolic congestive heart failure Hypertension Hyperlipidemia Plan: GI services and general surgery to reevaluate the patient, the patient is being considered for transfer to another facility for GI services. Hemoglobin stable at 8.3 The patient got transfused with packed RBCs Surgical services are following continue IV Rocephin, remains on ceftriaxone per ID service Being considered to be transferred regarding ongoing GI bleed related to the duodenal ulcer.
--- NOTE | 2023-12-08 14:54 | P.PN ---
Subjective Progress Note Date: 12/08/23 Principal diagnosis: Reason for follow-up is complicated UTI and bacteremia Patient is a 82-year-old female with a past medical history significant for hypertension hyperlipidemia osteoarthritis presenting to the hospital after pending the patient did have a fall patient has been complaining of feeling very weak and has been diagnosed with sepsis secondary to complicated UTI in this patient who is status post cystoscopy with right ureteral stent placement and the blood culture came positive with E. coli. On today's evaluation that is 12/08/2023, Patient is afebrile patient is currently on room air and denies having any shortness of breath, the patient denies any chest pain or cough, the patient denies any nausea vomiting did not have any abdominal pain and no diarrhea, did have some bright red blood in the stool as reported by the daughter. Patient white count is 16.6 hemoglobin is 8.3 Objective - Vital Signs Vital signs: Vital Signs Temp 97.9 F 12/08/23 08:00 Pulse 69 12/08/23 08:00 Resp 16 12/08/23 08:00 BP 129/60 12/08/23 08:00 Pulse Ox 98 12/08/23 08:00 FiO2 Intake & Output 12/07/23 12/08/23 12/08/23 18:59 06:59 18:59 Intake Total 1162 Balance 1162 Weight 68.9 kg 68.9 kg Intake: Intake, IV Titration 600 Amount Sodium Chloride 0.9% 1, 600 000 ml @ 125 mls/hr IV . Q8H [facility] Rx#:[id number] Blood Product 562 Rc Pheresis 2 As3 Unit 281 [id number] Other: Voiding Method Toilet Toilet Toilet # Voids 2 3 # Bowel Movements 1 - Exam GENERAL DESCRIPTION: An elderly female lying in bed in no distress RESPIRATORY SYSTEM: Unlabored breathing , decreased breath sounds at bases HEART: S1 S2 regular rate and rhythm , ABDOMEN: Soft , no tenderness EXTREMITIES: No edema feet - Labs CBC & Chem 7: 12/08/23 11:41 12/05/23 06:24 Labs: Abnormal Lab Results - Last 24 Hours (Table) 12/05/23 12/07/23 12/08/23 Range/Units 10:39 16:33 00:19 WBC 17.1 H 14.9 H (3.8-10.6) k/uL RBC 2.87 L 2.62 L (3.80-5.40) m/uL Hgb 8.9 L D 8.0 L (11.4-16.0) gm/dL Hct 27.1 L 23.8 L (34.0-46.0) % Neutrophils # 12.3 H (1.3-7.7) k/uL Crossmatch See Detail 12/08/23 12/08/23 Range/Units 07:30 11:41 WBC 16.1 H 16.6 H (3.8-10.6) k/uL RBC 2.84 L 2.70 L (3.80-5.40) m/uL Hgb 8.8 L 8.3 L (11.4-16.0) gm/dL Hct 26.7 L 25.3 L (34.0-46.0) % Neutrophils # 13.4 H 14.4 H (1.3-7.7) k/uL Crossmatch Microbiology - Last 24 Hours (Table) 12/04/23 08:42 Blood Culture - Preliminary Blood Assessment and Plan (1) Sepsis Current Visit: Yes Status: Acute Priority: High Code(s): A41.9 - SEPSIS, UNSPECIFIED ORGANISM SNOMED Code(s): 07071404 (2) UTI (urinary tract infection) Current Visit: Yes Status: Acute Priority: High Code(s): N39.0 - URINARY TRACT INFECTION, SITE NOT SPECIFIED SNOMED Code(s): 74771832 Plan: 1patient presented to hospital with sepsis in this patient who did have fever tachycardia meeting currently for SIRS source likely urinary patient did have lower abdominal pain positive UA and left-sided ureteral stone concerning for possible complicated UTI likely from enteric gram-negative pathogen 2-patient is status post cystoscopy and right ureteral stent placement by urology 3 blood culture as well as urine culture is growing E. coli both the sensitive to ceftriaxone 4-patient did have a GI bleed but the patient did have a EGD and epinephrine injection of the duodenal ulcer, patient did have further bleeding per rectum surgery see the patient recommending transfer to tertiary care 5patient to continue with Rocephin while inpatient, patient is currently waiting for transfer to tertiary care Family at the bedside question concern answered Dictation was produced using [employer] dictation software. please excuse any grammatical, word or spelling errors. Time with Patient: Less than 30
--- NOTE | 2023-12-08 14:54 | P.PN ---
Subjective Progress Note Date: 12/07/23 Principal diagnosis: Reason for follow-up is complicated UTI and bacteremia Patient is a 82-year-old female with a past medical history significant for hypertension hyperlipidemia osteoarthritis presenting to the hospital after pending the patient did have a fall patient has been complaining of feeling very weak and has been diagnosed with sepsis secondary to complicated UTI in this patient who is status post cystoscopy with right ureteral stent placement and the blood culture came positive with E. coli. On today's evaluation that is 12/07/2023, the patient continues to be afebrile, the patient is on 2 L current oxygen and breathing comfortably, the Pt denies h aving any chest pain or cough, the patient denies having any abdominal pain no vomiting or any diarrhea, patient did have a bleeding per rectum requiring transfer to the telemetry floor. Patient white count is 16.9, hemoglobin 6.9 Objective - Vital Signs Vital signs: Vital Signs Temp 98.3 F 12/07/23 08:00 Pulse 67 12/07/23 08:00 Resp 16 12/07/23 08:00 BP 107/62 12/07/23 08:00 Pulse Ox 100 12/07/23 08:00 FiO2 Intake & Output 12/06/23 12/07/23 12/07/23 18:59 06:59 18:59 Intake Total 1410 Balance 1410 Intake: IV 50 cefTRIAXone 2 gm In 50 Sodium Chloride 0.9% 50 ml @ 100 mls/hr IVPB Q24HR [facility] Rx#:[id number] Oral 1360 Other: Voiding Method Toilet Toilet # Voids 3 # Bowel Movements 1 - Exam GENERAL DESCRIPTION: An elderly female lying in bed in no distress RESPIRATORY SYSTEM: Unlabored breathing , decreased breath sounds at bases HEART: S1 S2 regular rate and rhythm , ABDOMEN: Soft , no tenderness EXTREMITIES: No edema feet - Labs CBC & Chem 7: 12/08/23 11:41 12/05/23 06:24 Labs: Abnormal Lab Results - Last 24 Hours (Table) 12/05/23 12/07/23 12/07/23 Range/Units 10:39 03:45 04:13 WBC 18.0 H (3.8-10.6) k/uL RBC 2.57 L (3.80-5.40) m/uL Hgb 7.9 L (11.4-16.0) gm/dL Hct 23.2 L (34.0-46.0) % Neutrophils # 16.1 H (1.3-7.7) k/uL Lymphocytes # 0.9 L (1.0-4.8) k/uL POC Glucose (mg/dL) 201 H (70-110) mg/dL Crossmatch See Detail 12/07/23 Range/Units 09:49 WBC 16.9 H (3.8-10.6) k/uL RBC 2.27 L (3.80-5.40) m/uL Hgb 6.9 L* (11.4-16.0) gm/dL Hct 20.5 L (34.0-46.0) % Neutrophils # (1.3-7.7) k/uL Lymphocytes # (1.0-4.8) k/uL POC Glucose (mg/dL) (70-110) mg/dL Crossmatch Microbiology - Last 24 Hours (Table) 12/04/23 08:42 Blood Culture - Preliminary Blood 12/04/23 13:17 Urine Culture - Final Urine,Clean Catch Assessment and Plan (1) Sepsis Current Visit: Yes Status: Acute Priority: High Code(s): A41.9 - SEPSIS, UNSPECIFIED ORGANISM SNOMED Code(s): 98636088 (2) UTI (urinary tract infection) Current Visit: Yes Status: Acute Priority: High Code(s): N39.0 - URINARY TRACT INFECTION, SITE NOT SPECIFIED SNOMED Code(s): 96380861 Plan: 1patient presented to hospital with sepsis in this patient who did have fever tachycardia meeting currently for SIRS source likely urinary patient did have lower abdominal pain positive UA and left-sided ureteral stone concerning for possible complicated UTI likely from enteric gram-negative pathogen 2-patient is status post cystoscopy and right ureteral stent placement by urology 3 blood culture as well as urine culture is growing E. coli both the sensitive to ceftriaxone 4-patient did have a GI bleed but the patient did have a EGD and epinephrine injection of the duodenal ulcer, patient did have further bleeding per rectum surgery see the patient recommending transfer to tertiary care 5patient to continue with Rocephin while inpatient Family at the bedside question concern answered Dictation was produced using [employer] dictation software. please excuse any grammatical, word or spelling errors. Time with Patient: Less than 30
[2023-12-08 18:20] LABS: HCT 26.1 % (34.0-46.0); HGB 8.3 gm/dL (11.4-16.0); Hypochromasia Slight; MCH 30.1 pg (25.0-35.0); MCHC 31.9 g/dL (31.0-37.0); MCV 94.4 fL (80.0-100.0); Mean Platelet Volume 9.1; Platelet Count 229 k/uL (150-450); Poikilocytosis Slight; RBC 2.76 m/uL (3.80-5.40); RDW 14.8 % (11.5-15.5); WBC 16.6 k/uL (3.8-10.6)
[2023-12-08 20:05] VITALS: BP 116/61; PULSE 70; TEMP 98.7
== END 2023-12-08 21:50 | disposition short-term general hospital (02) | DRG 853 ==
LOC: EC 20:21 → 3SCARD 23:45 → 2SICU 12-02 20:52 → 5NMEDONC 12-04 11:44 → 3SCARD 12-07 05:43
PROVIDERS: ADMIT Family Medicine; ATTEND Family Medicine
PROC: 0TC68ZZ Extirpation of Matter from Right Ureter, Via Natural or Artificial Opening Endoscopic (ICD-10-PCS; 2023-11-29)
PROC: 0T768DZ Dilation of Right Ureter with Intraluminal Device, Via Natural or Artificial Opening Endoscopic (ICD-10-PCS; principal; 2023-11-29 08:00)
PROC: 0W3P8ZZ Control Bleeding in Gastrointestinal Tract, Via Natural or Artificial Opening Endoscopic (ICD-10-PCS; 2023-12-03)
PROC: 3E0G8GC Introduction of Other Therapeutic Substance into Upper GI, Via Natural or Artificial Opening Endoscopic (ICD-10-PCS; 2023-12-03)
PROC: 30233N1 Transfusion of Nonautologous Red Blood Cells into Peripheral Vein, Percutaneous Approach (ICD-10-PCS; 2023-12-05)
DX: A41.51 Sepsis due to Escherichia coli [E. coli] (principal); I21.A1 Myocardial infarction type 2; I50.33 Acute on chronic diastolic (congestive) heart failure; J96.01 Acute respiratory failure with hypoxia; J11.00 Influenza due to unidentified influenza virus with unspecified type of pneumonia; K26.4 Chronic or unspecified duodenal ulcer with hemorrhage; N20.1 Calculus of ureter; N11.1 Chronic obstructive pyelonephritis; I48.92 Unspecified atrial flutter; I10 Essential (primary) hypertension; E78.5 Hyperlipidemia, unspecified; W06.XXXA Fall from bed, initial encounter; Y92.009 Unspecified place in unspecified non-institutional (private) residence as the place of occurrence of the external cause; I48.91 Unspecified atrial fibrillation; R53.1 Weakness; D69.6 Thrombocytopenia, unspecified; I11.0 Hypertensive heart disease with heart failure; I48.0 Paroxysmal atrial fibrillation; Z79.01 Long term (current) use of anticoagulants; I95.1 Orthostatic hypotension; K76.0 Fatty (change of) liver, not elsewhere classified; D64.9 Anemia, unspecified; Z79.82 Long term (current) use of aspirin; Z79.899 Other long term (current) drug therapy; Z87.442 Personal history of urinary calculi
CPT/HCPCS: 36415; 43243; 43255; 71045; 71046; 74177; 76705; 80048; 80053; 80061; 80074; 81001; 82272; 82550; 82552; 82607; 82728; 82747; 83036; 83540; 83550; 83605; 83735; 83880; 83921; 84132; 84443; 84484; 85025; 85027; 85384; 85610; 85730; 86850; 86900; 86901; 86920; 87040; 87077; 87086; 87186; 87390; 87636; 93005; 93306; 94640; 96361; 96374; 96375; 99285

== ENCOUNTER 2023-12-16 18:28 | Emergency (ER) | payer MEDICARE ==
--- NOTE | 2023-12-16 19:05 | ED ---
Fever HPI - General Chief Complaint: Fever Stated Complaint: fever Time Seen by Provider: 12/16/23 19:01 Source: patient, family, RN notes reviewed, old records reviewed Mode of arrival: wheelchair Limitations: no limitations - History of Present Illness Initial Comments: This is a 83-year-old female to the ER for evaluation of fever MD Complaint: fever -: hour(s) Temperature Source: subjective Associated Symptoms: myalgias Treatments Prior to Arrival: none - Related Data Home Medications Medication Instructions Recorded Confirmed Simvastatin [Zocor] 20 mg PO HS 11/29/23 11/29/23 lisinopriL [Zestril] 10 mg PO DAILY 11/29/23 11/29/23 Allergies Allergy/AdvReac Type Severity Reaction Status Date / Time No Known Allergies Allergy Verified 11/29/23 09:37 Review of Systems ROS Statement: Those systems with pertinent positive or pertinent negative responses have been documented in the HPI. ROS Other: All systems not noted in ROS Statement are negative. Past Medical History Past Medical History: GI Bleed, Hyperlipidemia, Hypertension, Osteoarthritis (OA) History of Any Multi-Drug Resistant Organisms: None Reported Past Surgical History: Breast Surgery Additional Past Surgical History / Comment(s): GROWTH REMOVED- skin lesions. Benign right breast excisional biopsy Past Anesthesia/Blood Transfusion Reactions: No Reported Reaction Past Psychological History: No Psychological Hx Reported Smoking Status: Never smoker Past Alcohol Use History: Rare Past Drug Use History: None Reported General Exam Limitations: no limitations General appearance: alert, in no apparent distress Head exam: Present: atraumatic, normocephalic, normal inspection Eye exam: Present: normal appearance, PERRL, EOMI. Absent: scleral icterus, conjunctival injection, periorbital swelling ENT exam: Present: normal exam, mucous membranes moist Neck exam: Present: normal inspection. Absent: tenderness, meningismus, lymphadenopathy Respiratory exam: Present: normal lung sounds bilaterally. Absent: respiratory distress, wheezes, rales, rhonchi, stridor Cardiovascular Exam: Present: regular rate, normal rhythm, normal heart sounds. Absent: systolic murmur, diastolic murmur, rubs, gallop, clicks GI/Abdominal exam: Present: soft, normal bowel sounds. Absent: distended, tenderness, guarding, rebound, rigid Extremities exam: Present: normal inspection, full ROM, normal capillary refill. Absent: tenderness, pedal edema, joint swelling, calf tenderness Back exam: Present: normal inspection Neurological exam: Present: alert, oriented X3, CN II-XII intact Psychiatric exam: Present: normal affect, normal mood Skin exam: Present: warm, dry, intact, normal color. Absent: rash Course Vital Signs 12/16/23 12/16/23 12/16/23 18:34 20:15 20:39 Temperature 99.9 F H 98.4 F Pulse Rate 92 78 Respiratory 20 18 Rate Blood Pressure 125/64 115/66 O2 Sat by Pulse 97 96 Oximetry 12/16/23 22:16 Temperature 97.9 F Pulse Rate 79 Respiratory 18 Rate Blood Pressure 116/66 O2 Sat by Pulse 98 Oximetry - Reevaluation(s) Reevaluation #1: 12/16/23 22:05 Medical records reviewed Reevaluation #2: 12/16/23 22:05 Patient symptoms improved Reevaluation #3: Patient informed of results and questions answered Reevaluation #4: Was pt. sent in by a medical professional or institution (, PA, BACK GRAY CLOTH WASHER, urgent care, hospital, or halfway...) When possible be specific @ -no Did you speak to anyone other than the patient for history (EMS, parent, family, police, friend...)? What history was obtained from this source @ -no Did you review nursing and triage notes (agree or disagree)? Why? @ -agree Are old charts reviewed (outside hosp., previous admission, EMS record, old EKG, old radiological studies, urgent care reports/EKG's, halfway records)? Report findings @ -yes Differential Diagnosis (chest pain, altered mental status, abdominal pain women, abdominal pain men, vaginal bleeding, weakness, fever, dyspnea, syncope, headache, dizziness, GI bleed, back pain, seizure, CVA, palpatations, mental health, musculoskeletal)? @ -prior EKG interpreted by me (3pts min.). @ -yes X-rays interpreted by me (1pt min.). @ -yes negative for acute disease CT interpreted by me (1pt min.). @ -no U/S interpreted by me (1pt. min.). @ -no What testing was considered but not performed or refused? (CT, X-rays, U/S, labs)? Why? @ -none What meds were considered but not given or refused? Why? @ -none Did you discuss the management of the patient with other professionals (pr ofessionals i.e. , PA, BACK GRAY CLOTH WASHER, lab, RT, psych nurse, social sciences chair, all source intelligence analyst, teacher, ground defence officer, telehealth case manager)? Give summary @ -no Was smoking cessation discussed for >3mins.? @ -no Was critical care preformed (if so, how long)? @ -no Were there social determinants of health that impacted care today? How? (Homelessness, low income, unemployed, alcoholism, drug addiction, transportation, low edu. Level, literacy, decrease access to med. care, correction, rehab)? @ -none Was there de-escalation of care discussed even if they declined (Discuss DNR or withdrawal of care, Hospice)? DNR status @ -no What co-morbidities impacted this encounter? (DM, HTN, Smoking, COPD, CAD, Cancer, CVA, ARF, Chemo, Hep., AIDS, mental health diagnosis, sleep apnea, morbid obesity)? @ -none Was patient admitted / discharged? Hospital course, mention meds given and route, prescriptions, significant lab abnormalities, going to OR and other pertinent info. @ - 83 female to the ER for evaluation of fever no cause of fever found patient can be discharged home Discharge Undiagnosed new problem with uncertain prognosis? @ -no Drug Therapy requiring intensive monitoring for toxicity (Heparin, Nitro, Insulin, Cardizem)? @ -no Were any procedures done? @ -no Diagnosis/symptom? @ - fever Acute, or Chronic, or Acute on Chronic? @ -Acute Uncomplicated (without systemic symptoms) or Complicated (systemic symptoms)? @ -Complicated Side effects of treatment? @ -no Exacerbation, Progression, or Severe Exacerbation? @ -exacerbation Poses a threat to life or bodily function? How? (Chest pain, USA, NH, pneumonia, PE, COPD, DKA, ARF, appy, cholecystitis, CVA, Diverticulitis, Homicidal, Suicidal, threat to staff... and all critical care pts) @ -yes extremes of age Reevaluation #5: Differential Fever: Pneumonia, viral URI, endocarditis, myocarditis, pericarditis, otitis, sinus itis, peritonsillar Abscess, retropharyngeal Abscess, epiglottitis, peritonitis, appendicitis, Christel cystitis, diverticulitis, hepatitis, colitis, UTI, PID, TOA, pyelonephritis, prostatitis, epididymitis, meningitis, encephalitis, pulmonary embolism, CVA, thyroid storm, pancreatitis, adrenal crisis, cavernous sinus thrombosis, this is not meant to be an all-inclusive list. Medical Decision Making - Medical Decision Making 83 female to the ER for evaluation of fever no cause of fever found patient can be discharged home - Lab Data Result diagrams: 12/16/23 20:14 12/16/23 20:14 Lab Results 12/16/23 12/16/23 12/16/23 Range/Units 20:14 20:14 20:14 WBC 7.7 (3.8-10.6) k/uL RBC 2.99 L (3.80-5.40) m/uL Hgb 8.6 L (11.4-16.0) gm/dL Hct 27.0 L (34.0-46.0) % MCV 90.4 (80.0-100.0) fL MCH 28.8 (25.0-35.0) pg MCHC 31.9 (31.0-37.0) g/dL RDW 14.7 (11.5-15.5) % Plt Count 230 (150-450) k/uL MPV 8.8 Neutrophils % 88 % Lymphocytes % 6 % Monocytes % 5 % Eosinophils % 0 % Basophils % 0 % Neutrophils # 6.8 (1.3-7.7) k/uL Lymphocytes # 0.4 L (1.0-4.8) k/uL Monocytes # 0.4 (0-1.0) k/uL Eosinophils # 0.0 (0-0.7) k/uL Basophils # 0.0 (0-0.2) k/uL Hypochromasia Moderate Poikilocytosis Slight PT 10.9 (10.0-12.5) sec INR 1.0 (<1.2) APTT 25.6 (22.0-30.0) sec Sodium (137-145) mmol/L Potassium (3.5-5.1) mmol/L Chloride (98-107) mmol/L Carbon Dioxide (22-30) mmol/L Anion Gap mmol/L BUN (7-17) mg/dL Creatinine (0.52-1.04) mg/dL Est GFR (CKD-EPI)AfAm (>60 ml/min/1.73 sqM) Est GFR (CKD-EPI)NonAf (>60 ml/min/1.73 sqM) Glucose (74-99) mg/dL Plasma Lactic Acid Vito (0.7-2.0) mmol/L Calcium (8.4-10.2) mg/dL Phosphorus (2.5-4.5) mg/dL Magnesium (1.6-2.3) mg/dL Total Bilirubin (0.2-1.3) mg/dL AST (14-36) U/L ALT (4-34) U/L Alkaline Phosphatase (38-126) U/L Troponin I (0.000-0.034) ng/mL NT-Pro-B Natriuret Pep pg/mL Total Protein (6.3-8.2) g/dL Albumin (3.5-5.0) g/dL Urine Color Yellow Urine Appearance Clear (Clear) Urine pH 6.5 (5.0-8.0) Ur Specific Sawyer 1.018 (1.001-1.035) Urine Protein 1+ H (Negative) Urine Glucose (UA) Negative (Negative) Urine Ketones Negative (Negative) Urine Blood Large H (Negative) Urine Nitrite Negative (Negative) Urine Bilirubin Negative (Negative) Urine Urobilinogen <2.0 (<2.0) mg/dL Ur Leukocyte Esterase Trace H (Negative) Urine RBC >182 H (0-5) /hpf Urine WBC 12 H (0-5) /hpf Ur Squamous Epith Cells 2 (0-4) /hpf Urine Bacteria Rare H (None) /hpf Urine Mucus Rare H (None) /hpf 12/16/23 12/16/23 12/16/23 Range/Units 20:14 20:14 20:14 WBC (3.8-10.6) k/uL RBC (3.80-5.40) m/uL Hgb (11.4-16.0) gm/dL Hct (34.0-46.0) % MCV (80.0-100.0) fL MCH (25.0-35.0) pg MCHC (31.0-37.0) g/dL RDW (11.5-15.5) % Plt Count (150-450) k/uL MPV Neutrophils % % Lymphocytes % % Monocytes % % Eosinophils % % Basophils % % Neutrophils # (1.3-7.7) k/uL Lymphocytes # (1.0-4.8) k/uL Monocytes # (0-1.0) k/uL Eosinophils # (0-0.7) k/uL Basophils # (0-0.2) k/uL Hypochromasia Poikilocytosis PT (10.0-12.5) sec INR (<1.2) APTT (22.0-30.0) sec Sodium 136 L (137-145) mmol/L Potassium 4.4 (3.5-5.1) mmol/L Chloride 102 (98-107) mmol/L Carbon Dioxide 25 (22-30) mmol/L Anion Gap 9 mmol/L BUN 14 (7-17) mg/dL Creatinine 0.71 (0.52-1.04) mg/dL Est GFR (CKD-EPI)AfAm >90 (>60 ml/min/1.73 sqM) Est GFR (CKD-EPI)NonAf 80 (>60 ml/min/1.73 sqM) Glucose 141 H (74-99) mg/dL Plasma Lactic Acid Vito 1.4 (0.7-2.0) mmol/L Calcium 9.0 (8.4-10.2) mg/dL Phosphorus 3.3 (2.5-4.5) mg/dL Magnesium 1.7 (1.6-2.3) mg/dL Total Bilirubin 0.8 (0.2-1.3) mg/dL AST 28 (14-36) U/L ALT 19 (4-34) U/L Alkaline Phosphatase 64 (38-126) U/L Troponin I <0.012 (0.000-0.034) ng/mL NT-Pro-B Natriuret Pep 705 pg/mL Total Protein 6.6 (6.3-8.2) g/dL Albumin 3.5 (3.5-5.0) g/dL Urine Color Urine Appearance (Clear) Urine pH (5.0-8.0) Ur Specific Sawyer (1.001-1.035) Urine Protein (Negative) Urine Glucose (UA) (Negative) Urine Ketones (Negative) Urine Blood (Negative) Urine Nitrite (Negative) Urine Bilirubin (Negative) Urine Urobilinogen (<2.0) mg/dL Ur Leukocyte Esterase (Negative) Urine RBC (0-5) /hpf Urine WBC (0-5) /hpf Ur Squamous Epith Cells (0-4) /hpf Urine Bacteria (None) /hpf Urine Mucus (None) /hpf - EKG Data -: EKG Interpreted by Me (EKG is sinus 80 [place] 160 QRS 96 QTc 400) - Radiology Data Radiology results: report reviewed (Chest x-ray is negative for acute disease), image reviewed Disposition Clinical Impression: Fever Disposition: HOME SELF-CARE Condition: Good Instructions (If sedation given, give patient instructions): Fever in Adults (ED) Is patient prescribed a controlled substance at d/c from ED?: No Referrals: Malik Serra DO [Primary Care Provider] - 1-2 days Time of Disposition: 22:05
[2023-12-16] MEDS: ACETAMINOPHEN TAB 500 MG TAB PO STA (20:17)
[2023-12-16] MEDS: IBUPROFEN 600 MG TAB PO STA (20:17)
[2023-12-16] MEDS: SODIUM CHLORIDE 0.9% 500 ML 500 ML IV STA (20:23)
[2023-12-16] MEDS: SODIUM CHLORIDE 0.9% 1,000 ML IV STA (20:23)
[2023-12-16 20:34] LABS: ALT 19 U/L (4-34); AST 28 U/L (14-36); African American GFR (CKD) >90 (>60 ml/min/1.73 sqM); Albumin 3.5 g/dL (3.5-5.0); Alkaline Phosphatase 64 U/L (38-126); Anion Gap 9 mmol/L; Blood Urea Nitrogen 14 mg/dL (7-17); Carbon Dioxide 25 mmol/L (22-30); Chloride 102 mmol/L (98-107); Glucose 141 mg/dL (74-99); Magnesium 1.7 mg/dL (1.6-2.3); Non-African American GFR(CKD) 80 (>60 ml/min/1.73 sqM); Phosphorus 3.3 mg/dL (2.5-4.5); Potassium 4.4 mmol/L (3.5-5.1); Sodium 136 mmol/L (137-145); Total Bilirubin 0.8 mg/dL (0.2-1.3); Total Protein 6.6 g/dL (6.3-8.2)
[2023-12-16 20:39] VITALS: RESP 18
[2023-12-16 20:43] LABS: NT-Pro-B-Type Natriuretic Pept 705 pg/mL
[2023-12-16 20:53] LABS: Partial Thromboplastin Time 25.6 sec (22.0-30.0); Prothrombin Time 10.9 sec (10.0-12.5)
[2023-12-16 20:56] LABS: Basophils % (A) 0 %; Eosinophils % (A) 0 %; HGB 8.6 gm/dL (11.4-16.0); Hypochromasia Moderate; Lymphocytes # (A) 0.4 k/uL (1.0-4.8); Lymphocytes % (A) 6 %; MCH 28.8 pg (25.0-35.0); MCHC 31.9 g/dL (31.0-37.0); MCV 90.4 fL (80.0-100.0); Mean Platelet Volume 8.8; Monocytes # (A) 0.4 k/uL (0-1.0); Monocytes % (A) 5 %; Neutrophils # (A) 6.8 k/uL (1.3-7.7); Neutrophils % (A) 88 %; Platelet Count 230 k/uL (150-450); Poikilocytosis Slight; RBC 2.99 m/uL (3.80-5.40); RDW 14.7 % (11.5-15.5); WBC 7.7 k/uL (3.8-10.6)
--- NOTE | 2023-12-16 21:07 | XR ---
EXAMINATION TYPE: XR chest 2V DATE OF EXAM: 12/16/2023 9:02 PM CLINICAL INDICATION: Female, 83 years old with history of Weakness; COMPARISON: Chest radiographs from 12/03/2023. TECHNIQUE: XR chest 2V Frontal and lateral views of the chest. FINDINGS: Lungs/Pleura: There is no evidence of pleural effusion, focal consolidation, or pneumothorax. Pulmonary vascularity: Pulmonary vascular congestion. Heart/mediastinum: Cardiomediastinal silhouette is enlarged and stable. Musculoskeletal: Multiple level degenerative disc disease changes seen throughout the spine. Severe degeneration changes of the shoulders with joint space tearing osteophyte formation. IMPRESSION: No acute cardiopulmonary disease/process. [facility], , 12/16/2023 9:05 PM
[2023-12-16 21:42] LABS: Appearance,Urine Clear (Clear); Bacteria,Urine Rare /hpf; Bilirubin,Urine Negative (Negative); Blood,Urine Large (Negative); Color,Urine Yellow; Glucose,Urine (UA) Negative (Negative); Ketones,Urine Negative (Negative); Leukocyte Esterase,Urine Trace (Negative); Mucus,Urine Rare /hpf; Nitrite,Urine Negative (Negative); PH, Urine 6.5 (5.0-8.0); Protein,Urine 1+ (Negative); RBC,Urine >182 /hpf (0-5); Specific Gravity,Urine 1.018 (1.001-1.035); Squamous Epithelial Cell,Urine 2 /hpf (0-4); Urobilinogen,Urine <2.0 mg/dL (<2.0); WBC,Urine 12 /hpf (0-5)
[2023-12-16 22:17] VITALS: BP 116/66; PULSE 79; TEMP 97.9
== END 2023-12-16 22:17 | disposition home or self-care (01) ==
LOC: EC 18:28
DX: R50.9 Fever, unspecified (principal)
CPT/HCPCS: 36415; 71046; 80053; 81001; 83605; 83735; 83880; 84100; 84484; 85025; 85610; 85730; 87040; 93005; 96360; 96361; 99283

== ENCOUNTER → 2023-12-22 | Outpatient (CLI) | payer MEDICARE ==
[2023-12-22 18:48] LABS: Basophils # (A) 0.05 X 10*3/uL (0.00-0.10); Basophils % (A) 0.5 %; Eosinophils # (A) 0.05 X 10*3/uL (0.04-0.35); Eosinophils % (A) 0.5 %; HCT 30.5 % (37.2-46.3); HGB 9.3 g/dL (12.0-15.0); Lymphocytes # (A) 0.88 X 10*3/uL (0.90-5.00); Lymphocytes % (A) 8.9 %; MCHC 30.5 g/dL (32.0-37.0); MCV 91.9 FL (80.0-97.0); Mean Platelet Volume 12.5 FL (9.5-12.2); Monocytes # (A) 0.75 X 10*3/uL (0.20-1.00); Monocytes % (A) 7.6 %; NRBC Per 100 WBC 0 X 10*3/uL (0.00-0.01); Neutrophils # (A) 8.07 X 10*3/uL (1.80-7.70); Neutrophils % (A) 81.4 %; Platelet Count 134 X 10*3/uL (140-440); RBC 3.32 X 10*6/uL (4.10-5.20); RDW 14.4 % (11.5-14.5); WBC 9.91 X 10*3/uL (4.50-10.00)
[2023-12-22 18:56] LABS: Appearance,Urine Turbid (Clear); Bilirubin,Urine Negative (Negative); Blood,Urine Small (Negative); Color,Urine Yellow (Yellow); Ketones,Urine Trace (Negative); Nitrite,Urine Negative (Negative); PH, Urine 6.5; Specific Gravity,Urine 1.022 (1.001-1.030)
[2023-12-22 19:19] LABS: Bacteria,Urine 4+ (None Seen); Calcium Oxalate Crystals,Urine Present (None Seen); Mucus,Urine Present
[2023-12-22 19:51] LABS: Blood Urea Nitrogen 16.8 mg/dL (9.0-27.0); Calcium 9.6 mg/dL (8.7-10.3); Carbon Dioxide 22.3 mmol/L (21.6-31.8); Chloride 101 mmol/L (96-109); Glucose 118 mg/dL (70-110); Potassium 4.4 mmol/L (3.5-5.5); Sodium 139 mmol/L (135-145)
== END | disposition home or self-care (01) ==
LOC: LABPAT 13:28
PROVIDERS: ATTEND Urology
CPT/HCPCS: 36415; 80048; 81001; 85025

== ENCOUNTER 2023-12-30 08:12 | Day surgery (SDC) | payer MEDICARE ==
--- NOTE | 2023-12-29 18:26 | P.GSHP ---
History of Present Illness H&P Date: 12/29/23 83 yo female recently in the hospital with a uti and sepsis, an obstructing 4mm rt ureteral stone with pyonephrosis. She had a stent placement in the right ureter to drain the pyonephrosis. She now comes for a right ureteroscopy with laser lithotripsy. - Constitutional Constitutional: Denies chills, Denies fever - EENT Eyes: denies blurred vision, denies pain Ears, nose, mouth and throat: Denies headache, Denies sore throat - Cardiovascular Cardiovascular: Denies chest pain, Denies shortness of breath - Respiratory Respiratory: Denies cough, Denies 7 - Gastrointestinal Gastrointestinal: Denies abdominal pain, Denies diarrhea, Denies nausea, Denies vomiting - Genitourinary (Female) Genitourinary: Denies dysuria, Denies hematuria - Genitourinary (Male) Genitourinary: Denies dysuria, Denies hematuria - Musculoskeletal Musculoskeletal: Denies myalgias - Integumentary Integumentary: Denies pruritus, Denies rash - Neurological Neurological: Denies numbness, Denies weakness - Psychiatric Psychiatric: Denies anxiety, Denies depression - Endocrine Endocrine: Denies fatigue, Denies weight change Past Medical History Past Medical History: Cancer, GERD/Reflux, GI Bleed, Hyperlipidemia, Hypertension, Osteoarthritis (OA) Additional Past Medical History / Comment(s): neuropathy in feet. Pt states she was told she went into afib when in hospital for sepsis, no meds at this time. recent hospitalization 11/2023 sepsis, uti, kidney stones and GI bleed.(received 2 units of blood, on Iron hgb 9.3) tested for sleep apnea- told "Mediocre" no machine at this time. basal cell cancer removed. pre diabetic no tx. History of Any Multi-Drug Resistant Organisms: None Reported Past Surgical History: Breast Surgery, Hysterectomy Additional Past Surgical History / Comment(s): GROWTH REMOVED- skin lesions. Benign right breast excisional biopsy, colonoscopy, dental work. Past Anesthesia/Blood Transfusion Reactions: No Reported Reaction Additional Past Anesthesia/Blood Transfusion Reaction / Comment(s): felt un balanced after colonoscopy. slept it off at home. recently given 2 units of blood without issue. Smoking Status: Never smoker - Past Family History Mother Family Medical History: Cancer Father Family Medical History: Cancer, Myocardial Infarction ([place]) Sister(s) Family Medical History: Cancer Medications and Allergies Home Medications Medication Instructions Recorded Confirmed Type Simvastatin [Zocor] 20 mg PO HS 11/29/23 12/28/23 History lisinopriL [Zestril] 10 mg PO DAILY 11/29/23 12/28/23 History Docusate Sodium [Dok] 100 mg PO DAILY 12/28/23 12/28/23 History Ferrous Sulfate [Feosol] 325 mg PO Q48H 12/28/23 12/28/23 History Pantoprazole [Protonix] 40 mg PO BID 12/28/23 12/28/23 History Unk Multi Vitamin 1 tab PO DAILY 12/28/23 12/28/23 History Allergies Allergy/AdvReac Type Severity Reaction Status Date / Time No Known Allergies Allergy Verified 11/29/23 09:37 Surgical - Exam - General well developed, well nourished, no distress - Eyes normal ocular movement, no icteric - ENT no hearing loss, no congestion - Neck no masses, trachea midline - Respiratory normal respiratory effort, clear to auscultation - Abdomen Abdomen: soft, non tender, no guarding, no rigid, no rebound - Integumentary no rash, no abnormal pigmentation - Neurologic no disoriented, no combative - Psychiatric oriented to time, oriented to person, oriented to place, speech is normal, memory intact Results - Imaging Abdominal x-ray: report reviewed, image reviewed CT scan - abdomen: report reviewed, image reviewed CT scan - pelvis: report reviewed Assessment and Plan Assessment: Impression: right ureteral stone with obstruction, s/p stent placement Plan: right ureteroscopy with laser lithotripsy
[~2023-12-30 08:12] MED LIST changes: +HYDROmorphone 0.5 MG/0.5 ML SYRINGE IVP PRN; -LACTATED RINGERS 1,000 ML IV SCH; -LIDOCAINE 1% 20 ML VIAL (10MG/ML) FOR IV START INTRADERMA PRN
[2023-12-30] MEDS: IV FLUID CONTINUATION 1,000 ML IV ONE (08:52)
[2023-12-30 08:55] VITALS: TEMP 97.8
[2023-12-30] MEDS: LACTATED RINGERS 1,000 ML IV SCH (09:02)
[2023-12-30] MEDS: DEXAMETHASONE SOD PHOSPHATE 4 MG/ML 1 ML VIAL IV ONE (09:03)
[2023-12-30] MEDS: ONDANSETRON 4 MG/2 ML VIAL IVP ONE (09:03)
[2023-12-30] MEDS ORDERED: LIDOCAINE 1% INJ 10MG/ML (20 ML MDV) ONE (09:10)
[2023-12-30] MEDS ORDERED: SUCCINYLCHOLINE CHLORIDE 200 MG/10 ML VIAL IV ONE (09:10)
[2023-12-30] MEDS ORDERED: KETOROLAC 15 MG/ML 1 ML VIAL ONE (09:10)
[2023-12-30] MEDS ORDERED: PROPOFOL 10 MG/ML 20 ML VIAL IV ONE (09:10)
[2023-12-30] MEDS ORDERED: fentaNYL (PF) 50 MCG/ML 2 ML AMP ONE (09:10)
[2023-12-30] MEDS: AMPICILLIN 1,000 MG in SODIUM CHLORIDE 0.9% 50 ML IVPB PRN (09:10)
[2023-12-30] MEDS ORDERED: PHENYLEPHRINE 10 MG/ML VIAL ONE (09:10)
[2023-12-30] MEDS: GENTAMICIN 100 MG in SODIUM CHLORIDE 0.9% 100 ML IVPB PRN (09:25)
--- NOTE | 2023-12-30 09:27 | XR ---
EXAMINATION TYPE: XR KUB DATE OF EXAM: 12/30/2023 8:39 AM COMPARISON: None. CLINICAL INDICATION: Female, 83 years old with history of Right Ureteral Stone N20.1, TECHNIQUE: XR KUB view(s) obtained. FINDINGS: There is a normal bowel gas pattern. Psoas margins are normal. No organomegaly is present. Right ureteral stent is present. IMPRESSION: 1. Unremarkable Abdomen [facility], , 12/30/2023 9:24 AM
[2023-12-30] MEDS: IOPAMIDOL-370 100ML BTL MISCELLANE ONE (09:37)
--- NOTE | 2023-12-30 10:05 | P.OP ---
Date of Procedure: 12/30/23 Preoperative Diagnosis: right ureteral stone, s/p stent placement Postoperative Diagnosis: same Procedure(s) Performed: cystoscopy, removal of right double-J catheter, right ureteroscopy with laser lithotripsy and stone basketing Anesthesia: GABRIELLE Surgeon: Lorenzo Jaime Estimated Blood Loss (ml): 0 Pathology: other (stone) Condition: stable Disposition: PACU Indications for Procedure: patient is 83. She recently was in the hospital for an obstructing right ureteral stone, secondary pyelonephrosis and a urinary tract infection with sepsis. A stent was placed up. She now comes for stone and stent removal from the right ureter Description of Procedure: patient brought to the operating suite. Given a general anesthetic. Placed lithotomy position with a sterile prep and drape. Cystoscopy Foroblique lens and 21-Syrian sheath identifies a normal urethra. The bladder wall is unremarkable. The right ureteral orifice is identified with a stent the stent was pulled to the urethral meatus. Through the stent an 035 wires passed into the kidney. The stent is removed. Over the wires passed [id number] reentry sheath. The inner sheath is removed. Through the 13-Syrian sheath and passed the scope into the right collecting system and look throughout do not see any evidence of stone. I do an intraoperative nephrostogram to make sure I saw each calyx. Pullout right ureteroscopy identifies a 5 mm stone in the mid to distal ureter. With the 275 laser probe it is broken into tiny fragments and basket. We look ureteroscopy does not identify enough edema to replace a stent. Ureteroscope was removed. The bladder is irrigated and draining. The patient is awakened and returned recovery room good condition. She tolerated procedure well be discharged home upon recovery.
[2023-12-30 10:07] VITALS: RESP 16
--- NOTE | 2023-12-30 10:12 | FL ---
Fluoroscopy INDICATION: Pain FINDINGS: Fluoroscopy time: 37.8 seconds. Total dose area product (DAP) in uGy*m?, mGy*cm? (or similar): 3.0140 Images obtained: 3. Right retrograde urography IMPRESSION: 1. Documentation of fluoroscopy. [facility], , 12/30/2023 10:09 AM
[2023-12-30 11:41] VITALS: PULSE 79
[2023-12-30 12:01] VITALS: BP 151/81
== END 2023-12-30 12:12 | disposition home or self-care (01) ==
LOC: OR 08:12
PROVIDERS: ATTEND Urology
DX: N13.6 Pyonephrosis (principal); E78.5 Hyperlipidemia, unspecified; I10 Essential (primary) hypertension; M19.90 Unspecified osteoarthritis, unspecified site; K21.9 Gastro-esophageal reflux disease without esophagitis; I48.91 Unspecified atrial fibrillation; R47.1 Dysarthria and anarthria; K27.9 Peptic ulcer, site unspecified, unspecified as acute or chronic, without hemorrhage or perforation; Z90.710 Acquired absence of both cervix and uterus; Z46.82 Encounter for fitting and adjustment of non-vascular catheter; Z82.49 Family history of ischemic heart disease and other diseases of the circulatory system; Z79.899 Other long term (current) drug therapy
CPT/HCPCS: 82365; 74420; 74018; 52356; C1769; J0330; J1100; J2405; J2003; J3010; J1580; J0290; J1885; J2704; Q9967; J2371

== ENCOUNTER → 2024-06-28 | Outpatient (CLI) | payer MEDICARE ==
--- NOTE | 2024-06-28 11:11 | MM ---
Reason for Exam: Screening (asymptomatic). Last mammogram was performed 1 year(s) and 2 month(s) ago. Patient History: Menarche at age 15. First Full-Term at age 30. Left ovary removed at age 76. Right ovary removed at age 76. Hysterectomy at age 76. Postmenopausal. Patient has history of breast feeding. Estrogen for 11 years, 2 months, from age 53 until age 64. 07/08/2021, High risk MG pre op needle loc RT on the right side. 08/09/2007, Excisional Biopsy on the Right side. 05/09/2021, High risk Core Biopsy on the right side. Maternal aunt had breast cancer, age 60. Sister had breast cancer, age 60. Mother had breast cancer at or over age 50. Risk Values: Munira 5 year model risk: 7.3%. NCI Lifetime model risk: 9.7%. Prior Study Comparison: 05/09/2021 Right Diagnostic Mammogram, [facility]. 04/30/2022 Bilateral MG 3D diag mammo w/cad LEON, [facility]. 05/14/2023 Bilateral MG 3D screening mammo w/cad, [facility]. Tissue Density: The breasts are heterogeneously dense, which may obscure small masses. Findings: Analyzed By CAD. Right breast: There is no suspicious group of microcalcifications or new suspicious mass. Benign-appearing calcifications right breast. Left breast: There is no suspicious group of microcalcifications or new suspicious mass. Benign-appearing calcifications left breast. Overall Assessment: Benign, BI-RAD 2 Management: Screening Mammogram of both breasts in [address] [facility] will attempt to contact patient to return for supplemental views and ultrasound if indicated. Patient should continue monthly self-breast exams. A clinical breast exam by your physician is recommended on an annual basis. This exam should not preclude additional follow-up of suspicious palpable abnormalities. Note on Munira scores and lifetime risk: 1. A Munira score greater than 3% is considered moderate risk. If this is the case, consider specialist referral to assess eligibility for a risk reducing agent. 2. If overall lifetime risk for the development of breast cancer is 20% or higher, the patient may qualify for future screening with alternating mammogram and breast MRI. [facility], , 06/28/2024 11:08 AM. Electronically signed and approved by: Chucho Sharma DO
== END | disposition home or self-care (01) ==
LOC: RADMAMWWP 09:38
PROVIDERS: ATTEND Family Medicine
DX: Z12.31 Encounter for screening mammogram for malignant neoplasm of breast (principal); R92.333 Mammographic heterogeneous density, bilateral breasts; Z78.0 Asymptomatic menopausal state; Z80.3 Family history of malignant neoplasm of breast
CPT/HCPCS: 77063; 77067

== ENCOUNTER → 2024-06-28 | Outpatient (CLI) | payer MEDICARE ==
--- NOTE | 2024-06-28 11:36 | BD ---
EXAMINATION TYPE: Axial Bone Density DATE OF EXAM: 06/28/2024 CLINICAL HISTORY: 83 years old Female. ICD-10 CODE: M15.9 POLYOSTEOARTHRITIS, UNSPECIFIED , Addition al History: Height: 4 ft 11 in Weight: 147 FRAX RISK QUESTIONS: Alcohol (3 or more units per day): no Family History (Parent hip fracture): no Glucocorticoids (More than 3mos): no (Ex: prednisone, prednisolone, methylprednisolone, dexamethasone, and hydrocortisone). History of Fracture in Adulthood: yes Secondary Osteoporosis: 1. Type 1 Diabetes: no 2. Hyperthyroidism: no 3. Menopause before 45: no 4. Malnutrition: no 5. Chronic liver disease: no Rheumatoid Arthritis: no Current Tobacco Use: no RISK FACTORS HISTORY OF: Surgery to Spine/Hip(right/left)/Wrist (right/left): no MEDICATIONS: Thyroid Medications: none Osteoporosis Medications: none EXAM MEASUREMENTS: Bone mineral densitometry was performed using the [employer] System. Bone mineral density as measured about the Lumbar spine is: ----- L1-L4(G/cm2): 1.611 T Score Values are as follows: ----- L1: 2.0 ----- L2: 2.8 ----- L3: 4.6 ----- L4: 4.7 ----- L1-L4: 3.6 Z Score Values are as follows: ----- L1: 3.9 ----- L2: 4.6 ----- L3: 6.4 ----- L4: 6.5 ----- L1-L4: 5.4 Bone mineral density has: increased 6.9 % since study of: 2020 Bone mineral density about the R hip (g/cm2): 1.107 Bone mineral density about the L hip (g/cm2): 1.031 T Score values are as follows: -----R Neck: 0.5 -----L Neck: -0.1 -----R Total: -0.3 -----L Total: -0.2 Z Score values are as follows: -----R Neck: 2.7 -----L Neck: 2.2 -----R Total: 1.8 -----L Total: 1.9 Bone mineral density has: decreased -11.4 % since study of: 2020 FRAX%s: The graph provided illustrates a 12.6 % chance for a major osteoporotic fx and a 1.6% chance for the hips probability for fx in 10 years time. IMPRESSION: Normal (Values between +1 and -1 indicate normal bone mass). Consider repeating this study in 5 year s or sooner if there is some new clinical indication. NOTE: T-SCORE=SD OF THE YOUNG ADULT MEAN. [facility], , 06/28/2024 11:09 AM
== END | disposition home or self-care (01) ==
LOC: RADBDWWP 09:34
PROVIDERS: ATTEND Internal Medicine Rheumatology
DX: M15.9 Polyosteoarthritis, unspecified (principal); K25.0 Acute gastric ulcer with hemorrhage; Z92.89 Personal history of other medical treatment; Z91.89 Other specified personal risk factors, not elsewhere classified
CPT/HCPCS: 77080